=== PATIENT | female | born 1940 | race Caucasian/White ===

== ENCOUNTER 2018-03-25 16:27 | Observation (INO) | payer MEDICARE, SELFPAY ==
[2018-03-25] VITALS (11 sets, daily range): BP systolic 78–175; BP diastolic 52–90; PULSE 72–91; RESP 13–22; TEMP 36.6–36.8; O2SAT 96–100; BMI 22.6
--- NOTE | 2018-03-25 16:52 | ED_ITS ---
Addendum entered and electronically signed by Evelyne Carmona D.O. 03/25/18 23: 03: Upon discharge the patient got extremely lightheaded and felt as though she was going to pass out. Her repeat blood pressure showed a systolic in the 70s. She had another episode of large amount of diarrhea. She had at least 1 L of IV fluids and drank quite a few axis of water in the ED. However she still has orthostatic hypotension and is weak. She lives alone and is unsteady on her feet. It spoken with Dr. Sullivan who happily accepts patient. Original Note: HPI - Syncope <Debbie Becerra MD - Last Filed: 03/26/18 07:50> General Chief Complaint: Syncope Stated Complaint: doesnt feel good,passed out twice Time Seen by Provider: 03/25/18 16:35 Source: patient and family Mode of arrival: EMS Limitations: no limitations History of Present Illness HPI narrative: 78F hx parkinson's brought for evaluation of syncope x2. Daughter/investment associate states that patient blanked out for 30-60s before and after using toilet today. No falls. Daughter had video of syncopal episode which appears consistent with vasovagal episode. Patient reports that she was having abdominal cramping around the time of these events and had diarrhea when she was able to use the toilet. No fever, chills, vomiting, dysuria. Related Data Home Medications Medication Instructions Recorded Confirmed coenzyme Q10 [Co Q-10] 100 mg PO DAILY #0 07/24/16 03/25/18 [colon health] 1 cap PO QDAY #0 04/16/17 03/25/18 cholecalciferol (vitamin D3) 1 tab PO QDAY #0 04/16/17 03/25/18 [Vitamin D3] pyridoxine (vitamin B6) 250 mg PO QDAY #0 04/16/17 03/25/18 oxybutynin chloride [Ditropan XL] 5 mg PO QDAY #0 10/01/17 03/25/18 [CALCIUM] 600 mg PO QDAY #0 11/16/17 03/25/18 [LAXATIVE] 1 tab PO PRN PRN #0 11/16/17 03/25/18 carbidopa-levodopa 1 tab PO QAM AND QHS 03/25/18 03/25/18 Previous Rx's Medication Instructions Recorded ferrous gluconate 324 mg PO QDAY #30 12/04/16 carbidopa-levodopa 3 tab PO TID #270 tab 08/12/17 sumatriptan succinate 50 mg PO PRN PRN #6 tab 10/13/17 fluoxetine 10 mg PO QDAY #30 cap 12/03/17 omeprazole 40 mg OR QDAY #30 cap 12/10/17 levofloxacin [Levaquin] 750 mg PO Q24H 7 Days #7 tab 03/25/18 metronidazole [Flagyl] 500 mg PO TID #21 tab 03/25/18 Allergies Allergy/AdvReac Type Severity Reaction Status Date / Time No Known Drug Allergies Allergy Verified 03/25/18 17:27 Review of Systems <Debbie Becerra MD - Last Filed: 03/26/18 07:50> Constitutional Denies chills, Denies fever(s), Denies lethargy and Denies weakness ENT Ears, Nose, Mouth, and Throat: Denies change in voice, Denies neck pain and Denies sore throat Cardiovascular Denies chest pain, Reports syncope, Denies irregular heart rhythm, Denies lightheadedness, Denies palpitations, Denies dyspnea, Denies dyspnea on exertion and Denies orthopnea Respiratory Denies cough, Denies dyspnea, Denies dyspnea on exertion and Denies wheezing Gastrointestinal Gastrointestinal: Denies abdominal pain, Reports change in bowel habits, Reports cramping, Reports diarrhea, Denies nausea and Denies vomiting Genitourinary Denies hematuria, Denies flank pain, Denies urinary incontinence and Denies urinary urgency Musculoskeletal Denies neck pain Integumentary/Breasts Denies pruritus, Denies erythema, Denies rash and Denies wounds Neurologic Reports syncope and Denies weakness Endocrine Denies palpitations Allergic/Immunologic Denies wheezing Exam <Debbie Becerra MD - Last Filed: 03/26/18 07:50> Initial Vital Signs Initial Vital Signs: Vital Signs Temperature 98.3 F 03/25/18 16:49 Pulse Rate 87 03/25/18 16:49 Respiratory Rate 15 03/25/18 16:49 Blood Pressure 150/82 H 03/25/18 16:49 Pulse Oximetry 100 03/25/18 16:49 Const General: cooperative and well developed Nutritional Appearance: well nourished Orientation: alert, awake, oriented x3 and not confused [place] Head: normocephalic and atraumatic Ears: external ears normal and TM's normal bilaterally Nose: external nose normal and No nasal discharge Face and sinus: sinuses nontender, face symmetric, no sinus tenderness and No dry mucous membranes Mouth: oral mucosae normal and moist mucous membranes Teeth and gingiva: dentition normal Throat: tonsils normal and uvula midline Neck Neck: normal visual inspection, trachea midline, No lymphadenopathy, No midline deformity and No JVD Lymphatic: No lymphedema Resp Effort & Inspection: normal respiratory effort, able to speak in complete sentences, no respiratory distress and no use of accessory muscles Auscultation: clear to auscultation bilaterally, no rales, no rhonchi and no wheezes GI Inspection: non-distended Palpation: soft, no hepatosplenomegaly, No guarding, No pulsatile mass and tender (moderate generalized tenderness) Auscultation: normal bowel sounds Skin General: no rashes or lesions noted, No jaundice and No petechiae Neuro General: alert, awake, oriented x3, moves all extremities and other (baseline resting tremor) Extrem General: full ROM, no clubbing, cyanosis or edema, no pedal edema and no calf tenderness <Evelyne Carmona DO - Last Filed: 03/25/18 23:03> Initial Vital Signs Initial Vital Signs: Vital Signs Temperature 98.3 F 03/25/18 16:49 Pulse Rate 87 03/25/18 16:49 Respiratory Rate 15 03/25/18 16:49 Blood Pressure 150/82 H 03/25/18 16:49 Pulse Oximetry 100 03/25/18 16:49 Course <Debbie Becerra MD - Last Filed: 03/26/18 07:50> Orders Ordered: Sodium Chloride (Normal Saline 0.9%) 1,000 mls @ 125 mls/hr IV CONT ANNALISE Last Admin: 03/26/18 00:08 Dose: 125 mls/hr Discontinued Medications Carbidopa/Levodopa (Sinemet 25-100 Tab) 3 each PO NOW ONE Stop: 03/26/18 01:36 Last Admin: 03/26/18 01:57 Dose: 3 each Sodium Chloride (Normal Saline 0.9%) 1,000 mls @ 1,000 mls/hr IV BOLUS ONE Stop: 03/25/18 17:59 Last Infusion: 03/25/18 20:45 Dose: 0 mls/hr Admin: 03/25/18 17:48 Dose: 1,000 mls/hr Sodium Chloride (Normal Saline 0.9%) 1,000 mls @ 1,000 mls/hr IV BOLUS ONE Stop: 03/25/18 18:41 Last Admin: 03/25/18 20:58 Dose: Levofloxacin (Levaquin) 750 mg PO NOW ONE Stop: 03/25/18 20:32 Last Admin: 03/25/18 20:43 Dose: 750 mg Metronidazole (Metronidazole) 500 mg PO NOW ONE Stop: 03/25/18 20:32 Last Admin: 03/25/18 20:45 Dose: 500 mg Vital Signs - 8 hr 03/26/18 04:54 Temperature 97.8 F Pulse Rate 77 Respiratory Rate 17 Blood Pressure 130/74 H Pulse Oximetry 100 <Evelyne Carmona DO - Last Filed: 03/25/18 23:03> Orders Ordered: Sodium Chloride (Normal Saline 0.9%) 1,000 mls @ 125 mls/hr IV CONT ANNALISE Last Admin: 03/26/18 00:08 Dose: 125 mls/hr Discontinued Medications Carbidopa/Levodopa (Sinemet 25-100 Tab) 3 each PO NOW ONE Stop: 03/26/18 01:36 Last Admin: 03/26/18 01:57 Dose: 3 each Sodium Chloride (Normal Saline 0.9%) 1,000 mls @ 1,000 mls/hr IV BOLUS ONE Stop: 03/25/18 17:59 Last Infusion: 03/25/18 20:45 Dose: 0 mls/hr Admin: 03/25/18 17:48 Dose: 1,000 mls/hr Sodium Chloride (Normal Saline 0.9%) 1,000 mls @ 1,000 mls/hr IV BOLUS ONE Stop: 03/25/18 18:41 Last Admin: 03/25/18 20:58 Dose: Levofloxacin (Levaquin) 750 mg PO NOW ONE Stop: 03/25/18 20:32 Last Admin: 03/25/18 20:43 Dose: 750 mg Metronidazole (Metronidazole) 500 mg PO NOW ONE Stop: 03/25/18 20:32 Last Admin: 03/25/18 20:45 Dose: 500 mg Vital Signs - 8 hr 03/26/18 04:54 Temperature 97.8 F Pulse Rate 77 Respiratory Rate 17 Blood Pressure 130/74 H Pulse Oximetry 100 MDM - Syncope <Debbie Becerra MD - Last Filed: 03/26/18 07:50> Lab Data Result diagrams: 03/25/18 17:44 03/25/18 17:44 Lab Results 03/25/18 03/25/18 03/25/18 Range/Units 17:44 17:44 17:44 WBC 15.0 H (4.5-11.0) X10^3/uL RBC 4.65 (4.0-5.2) X10^6/uL Hgb 14.9 (12.0-16.0) g/dL Hct 42.3 (36-46) % MCV 91.0 (80-100) fL MCH 32.0 (26-34) PG MCHC 35.1 (30-36) % RDW 12.9 (11.6-14.8) % Plt Count 244 (150-400) X10^3/uL Neut % (Auto) 89.3 H (50-75) % Lymph % (Auto) 4.2 L (25-40) % Sawyer % (Auto) 5.6 (3-14) % Eos % (Auto) 0.5 L (2-4) % Baso % (Auto) 0.4 (0-2) % Neut # (Auto) 54669 H (6047-0811) /uL PT 11.6 (10.1-12.7) SECONDS INR 1.1 (0.9-1.3) APTT 27 (26.4-36.2) SECONDS Sodium 138 (137-145) mmol/L Potassium 4.5 (3.4-5.1) mmol/L Chloride 97.0 L (98-107) mmol/L Carbon Dioxide 29.0 (22-32) mmol/L BUN 19.0 H (7-17) mg/dL Creatinine 0.90 (0.52-1.04) mg/dL Estimated GFR > 60.0 (>60) mL/min BUN/Creatinine Ratio 21.1 (6-22) Glucose 120 H (80-110) mg/dL Lactate (0.7-2.1) mmol/L Calcium 10.5 H (8.4-10.2) mg/dL Magnesium 2.2 (1.6-2.3) mg/dL Total Bilirubin 1.3 (0.2-1.3) mg/dL AST 22 (14-36) IU/L ALT 14 (9-52) IU/L Alkaline Phosphatase 79 (38-126) U/L Total Protein 7.4 (6.3-8.2) g/dL Albumin 4.5 (3.5-5.0) g/dL Globulin 2.9 (1.7-4.1) g/dL Albumin/Globulin Ratio 1.6 (1.0-2.8) / Range/Units Unknown WBC (4.5-11.0) X10^3/uL RBC (4.0-5.2) X10^6/uL Hgb (12.0-16.0) g/dL Hct (36-46) % MCV (80-100) fL MCH (26-34) PG MCHC (30-36) % RDW (11.6-14.8) % Plt Count (150-400) X10^3/uL Neut % (Auto) (50-75) % Lymph % (Auto) (25-40) % Sawyer % (Auto) (3-14) % Eos % (Auto) (2-4) % Baso % (Auto) (0-2) % Neut # (Auto) (4074-9579) /uL PT (10.1-12.7) SECONDS INR (0.9-1.3) APTT (26.4-36.2) SECONDS Sodium (137-145) mmol/L Potassium (3.4-5.1) mmol/L Chloride (98-107) mmol/L Carbon Dioxide (22-32) mmol/L BUN (7-17) mg/dL Creatinine (0.52-1.04) mg/dL Estimated GFR (>60) mL/min BUN/Creatinine Ratio (6-22) Glucose (80-110) mg/dL Lactate 0.9 (0.7-2.1) mmol/L Calcium (8.4-10.2) mg/dL Magnesium (1.6-2.3) mg/dL Total Bilirubin (0.2-1.3) mg/dL AST (14-36) IU/L ALT (9-52) IU/L Alkaline Phosphatase (38-126) U/L Total Protein (6.3-8.2) g/dL Albumin (3.5-5.0) g/dL Globulin (1.7-4.1) g/dL Albumin/Globulin Ratio (1.0-2.8) ECG Data Attestation: I personally reviewed and interpreted this ECG as follows: Interpretation: Sinus rhythm HR [address]/Tw changes No ectopy MO intervals WNL; <Evelyne Carmona, DO - Last Filed: 03/25/18 23:03> Lab Data Attestation: I reviewed the patient's lab results. Lab Results 03/25/18 03/25/18 03/25/18 Range/Units 17:44 17:44 17:44 WBC 15.0 H (4.5-11.0) X10^3/uL RBC 4.65 (4.0-5.2) X10^6/uL Hgb 14.9 (12.0-16.0) g/dL Hct 42.3 (36-46) % MCV 91.0 (80-100) fL MCH 32.0 (26-34) PG MCHC 35.1 (30-36) % RDW 12.9 (11.6-14.8) % Plt Count 244 (150-400) X10^3/uL Neut % (Auto) 89.3 H (50-75) % Lymph % (Auto) 4.2 L (25-40) % Sawyer % (Auto) 5.6 (3-14) % Eos % (Auto) 0.5 L (2-4) % Baso % (Auto) 0.4 (0-2) % Neut # (Auto) 62863 H (9863-1575) /uL PT 11.6 (10.1-12.7) SECONDS INR 1.1 (0.9-1.3) APTT 27 (26.4-36.2) SECONDS Sodium 138 (137-145) mmol/L Potassium 4.5 (3.4-5.1) mmol/L Chloride 97.0 L (98-107) mmol/L Carbon Dioxide 29.0 (22-32) mmol/L BUN 19.0 H (7-17) mg/dL Creatinine 0.90 (0.52-1.04) mg/dL Estimated GFR > 60.0 (>60) mL/min BUN/Creatinine Ratio 21.1 (6-22) Glucose 120 H (80-110) mg/dL Lactate (0.7-2.1) mmol/L Calcium 10.5 H (8.4-10.2) mg/dL Magnesium 2.2 (1.6-2.3) mg/dL Total Bilirubin 1.3 (0.2-1.3) mg/dL AST 22 (14-36) IU/L ALT 14 (9-52) IU/L Alkaline Phosphatase 79 (38-126) U/L Total Protein 7.4 (6.3-8.2) g/dL Albumin 4.5 (3.5-5.0) g/dL Globulin 2.9 (1.7-4.1) g/dL Albumin/Globulin Ratio 1.6 (1.0-2.8) 05/24/18 Range/Units Unknown WBC (4.5-11.0) X10^3/uL RBC (4.0-5.2) X10^6/uL Hgb (12.0-16.0) g/dL Hct (36-46) % MCV (80-100) fL MCH (26-34) PG MCHC (30-36) % RDW (11.6-14.8) % Plt Count (150-400) X10^3/uL Neut % (Auto) (50-75) % Lymph % (Auto) (25-40) % Sawyer % (Auto) (3-14) % Eos % (Auto) (2-4) % Baso % (Auto) (0-2) % Neut # (Auto) (0136-1395) /uL PT (10.1-12.7) SECONDS INR (0.9-1.3) APTT (26.4-36.2) SECONDS Sodium (137-145) mmol/L Potassium (3.4-5.1) mmol/L Chloride (98-107) mmol/L Carbon Dioxide (22-32) mmol/L BUN (7-17) mg/dL Creatinine (0.52-1.04) mg/dL Estimated GFR (>60) mL/min BUN/Creatinine Ratio (6-22) Glucose (80-110) mg/dL Lactate 0.9 (0.7-2.1) mmol/L Calcium (8.4-10.2) mg/dL Magnesium (1.6-2.3) mg/dL Total Bilirubin (0.2-1.3) mg/dL AST (14-36) IU/L ALT (9-52) IU/L Alkaline Phosphatase (38-126) U/L Total Protein (6.3-8.2) g/dL Albumin (3.5-5.0) g/dL Globulin (1.7-4.1) g/dL Albumin/Globulin Ratio (1.0-2.8) Imaging Data Abdominal x-ray: Attestation: I personally reviewed and interpreted this imaging study as follows: Radiologist's impression: PROCEDURE: XR ACUTE ABDOMEN SERIES INDICATIONS: nausea TECHNIQUE: One view chest and two views of the abdomen were acquired. COMPARISON: [facility], US, ABDOMEN COMPLETE, 01/16/2017, 21:55. FINDINGS: Surgical changes and devices: Cholecystectomy clips. Chest: Lungs are clear. Heart size is normal. No pleural effusions. No pneumoperitoneum. Abdomen: Bowel gas pattern is normal. Moderate stool is present. No suspicious calcifications. Visualized solid organ contours appear normal. Bones: No suspicious bony lesions. IMPRESSION: Moderate stool suggesting constipation. CT scan - abdomen: Attestation: I personally reviewed and interpreted this imaging study as follows: Radiologist's impression: PROCEDURE: CT ABDOMEN PELVIS W CON INDICATIONS: generalized abd tenderness TECHNIQUE: After the administration of intravenous contrast, 5 mm thick sections acquired from the diaphragm to the symphysis. 5 mm coronal and sagittal reformats were acquired. For radiation dose reduction, the following was used: automated exposure control, adjustment of mA and/or kV according to patient size. COMPARISON: [facility], CR, XR ACUTE ABDOMEN SERIES, 03/25/2018, 16:40. [facility], CT, ABDOMEN/PELVIS WITH CONTRAST, 11/30/2016, 23:56. FINDINGS: Image quality: Excellent. ABDOMEN: Lung bases: Lung bases are clear. Heart size is normal. Solid organs: Liver is normal in size and enhancement. Anterior right hepatic cyst is unchanged. Gallbladder has been removed. Biliary system is non dilated. Pancreas enhances normally. Spleen is normal in size and enhancement. No adrenal nodules. Kidneys demonstrate normal size and enhancement, without hydronephrosis. Low attenuation right renal focus is present, unchanged and suggestive of cysts. Peritoneum and bowel: Bowel loops are nonobstructed. There is diffuse appearance of colonic thickening with minimal appearance of surrounding inflammatory change. This extends from the ascending colon to the rectum. Nodes and vessels: No retroperitoneal or mesenteric adenopathy by size criteria. Aorta and inferior vena cava are normal in size. Miscellaneous: No ventral hernias. PELVIS: Genitourinary: Bladder wall thickness is normal. Miscellaneous: No inguinal hernias or adenopathy. Bones: No suspicious bony lesions. No vertebral body compression fractures. IMPRESSION: 1. Diffuse appearance of colonic wall thickening with scattered areas of mild inflammatory change. Overall appearance is most suggestive of a diffuse infectious/inflammatory process such as colitis. While there are several small scattered diverticula present, the overall diffuse appearance is suggestive of colitis secondary to more generalized infection or potentially ischemic. Dictated by: Jaymie Devine M.D. on 03/25/2018 at 19:44 MDM Narrative Medical decision making narrative: Patient has some mild abdominal pain with leukocytosis and colitis on CT. Lactic acid is within normal limits pain is not out of proportion I do not suspect ischemic bowel. He had a brief episode while on the toilet of passing out. She admits she did not drink enough water. She is feeling much better, and feels as though she is ready to go home. Discharge Plan Departure Patient Disposition: Admitted as Observation Clinical Impression: Colitis, Syncope Discharge Date/Time: 03/25/18 22:30 Interventions: ED Discharge Assessment Last Done: 03/25/18 22:26 Admit Date/Time: 03/25/18 22:18 Admit Provider: Lulu Sullivan <Evelyne Carmona DO - Last Filed: 03/25/18 23:03> Sign Out Provider Sign Out Attestation: Patient seen and evaluated by myself. Mild lower abdominal pain CT is pending.
--- NOTE | 2018-03-25 17:00 | DI.RAD.S_ITS ---
PROCEDURE: XR ACUTE ABDOMEN SERIES INDICATIONS: nausea TECHNIQUE: One view chest and two views of the abdomen were acquired. COMPARISON: [facility], , ABDOMEN COMPLETE, 01/16/2017, 21:55. FINDINGS: Surgical changes and devices: Cholecystectomy clips. Chest: Lungs are clear. Heart size is normal. No pleural effusions. No pneumoperitoneum. Abdomen: Bowel gas pattern is normal. Moderate stool is present. No suspicious calcifications. Visualized solid organ contours appear normal. Bones: No suspicious bony lesions. IMPRESSION: Moderate stool suggesting constipation. Dictated by: Jaymie Devine M.D. on 03/25/2018 at 17:56 Approved by: Jaymie Devine M.D. on 03/25/2018 at 17:58
--- NOTE | 2018-03-25 17:43 | DI.CT.S_ITS ---
PROCEDURE: CT ABDOMEN PELVIS W CON INDICATIONS: generalized abd tenderness TECHNIQUE: After the administration of intravenous contrast, 5 mm thick sections acquired from the diaphragm to the symphysis. 5 mm coronal and sagittal reformats were acquired. For radiation dose reduction, the following was used: automated exposure control, adjustment of mA and/or kV according to patient size. COMPARISON: [facility], CR, XR ACUTE ABDOMEN SERIES, 03/25/2018, 16:40. [facility], CT, ABDOMEN/PELVIS WITH CONTRAST, 11/30/2016, 23:56. FINDINGS: Image quality: Excellent. ABDOMEN: Lung bases: Lung bases are clear. Heart size is normal. Solid organs: Liver is normal in size and enhancement. Anterior right hepatic cyst is unchanged. Gallbladder has been removed. Biliary system is non dilated. Pancreas enhances normally. Spleen is normal in size and enhancement. No adrenal nodules. Kidneys demonstrate normal size and enhancement, without hydronephrosis. Low attenuation right renal focus is present, unchanged and suggestive of cysts. Peritoneum and bowel: Bowel loops are nonobstructed. There is diffuse appearance of colonic thickening with minimal appearance of surrounding inflammatory change. This extends from the ascending colon to the rectum. Nodes and vessels: No retroperitoneal or mesenteric adenopathy by size criteria. Aorta and inferior vena cava are normal in size. Miscellaneous: No ventral hernias. PELVIS: Genitourinary: Bladder wall thickness is normal. Miscellaneous: No inguinal hernias or adenopathy. Bones: No suspicious bony lesions. No vertebral body compression fractures. IMPRESSION: 1. Diffuse appearance of colonic wall thickening with scattered areas of mild inflammatory change. Overall appearance is most suggestive of a diffuse infectious/inflammatory process such as colitis. While there are several small scattered diverticula present, the overall diffuse appearance is suggestive of colitis secondary to more generalized infection or potentially ischemic. Dictated by: Jaymie Devine M.D. on 03/25/2018 at 19:44 Approved by: Jaymie Devine M.D. on 03/25/2018 at 19:47
[2018-03-25] MEDS: SODIUM CHLORIDE 0.9% 1,000 ML 1000 ML IV (17:48)
[2018-03-25 17:58] LABS: Add Manual Diff / Slide Review NO; Basophils Percent Auto 0.4 % (0-2); Eosinophils Percent Auto 0.5 % (2-4); Hematocrit 42.3 % (36-46); Hemoglobin 14.9 g/dL (12.0-16.0); Lymphocytes Percent Auto 4.2 % (25-40); Mean Corpuscular HGB Conc 35.1 % (30-36); Monocytes Percent Auto 5.6 % (3-14); Neutrophils Absolute Auto 13400 /uL (3000-5900); Neutrophils Percent Auto 89.3 % (50-75); Platelet Count 244 X10^3/uL (150-400); Red Blood Cell Count 4.65 X10^6/uL (4.0-5.2); Red Cell Distribution Width 12.9 % (11.6-14.8)
--- NOTE | 2018-03-25 18:02 | PC.NURSE ---
Pt had 2 syncopal episodes at home while getting up from the toilet and had a near syncopal episode in the Radiology department while getting an x-ray. No injuries reported. Pt reports increased thirst and dry skin.
[2018-03-25 18:03] LABS: INR 1.1 (0.9-1.3); Prothrombin Time 11.6 SECONDS (10.1-12.7)
[2018-03-25 18:05] LABS: PTT Partial Thromboplastin Tim 27 SECONDS (26.4-36.2)
[2018-03-25 18:08] LABS: Alanine Aminotransferase 14 IU/L (9-52); Albumin 4.5 g/dL (3.5-5.0); Albumin Globulin Ratio 1.6 (1.0-2.8); Alkaline Phosphatase 79 U/L (38-126); Aspartate Aminotransferase 22 IU/L (14-36); BUN Creatinine Ratio 21.1 (6-22); Bilirubin Total 1.3 mg/dL (0.2-1.3); Calcium 10.5 mg/dL (8.4-10.2); Estimated Glomerular Filt Rate > 60.0 mL/min (>60); Globulin 2.9 g/dL (1.7-4.1); Glucose 120 mg/dL (80-110); HEMOLYSIS < 15 (0-50); Magnesium 2.2 mg/dL (1.6-2.3); Potassium 4.5 mmol/L (3.4-5.1); Sodium 138 mmol/L (137-145); Total Protein 7.4 g/dL (6.3-8.2)
[2018-03-25 19:38] LABS: Lactate (Lactic Acid) 0.9 mmol/L (0.7-2.1)
[2018-03-25] MEDS: levoFLOXacin 250 MG TABLET 750 MG PO (20:43)
[2018-03-25] MEDS: metroNIDAZOLE 250 MG TABLET 500 MG PO (20:45)
--- NOTE | 2018-03-25 21:32 | PC.NURSE ---
Pt was up for discharge. Removed IV and after about 2 min of her getting dressed, EMBLEM MAKER in to take vitals. She was sitting and had a systolic blood pressure of 89. One minute later at a seated position, she was systolic of 99. After standing her up, she had a systolic blood pressure in the 70s and began to feel weak. Dr. Carmona notified and patient back on stretcher.
[2018-03-26] MEDS: SODIUM CHLORIDE 0.9% 1,000 ML 125 ML IV ×2 (00:08→08:13)
[2018-03-26] MEDS: CARBIDOPA-LEVODOPA 25/100 TABLET 3 EACH PO ×2 (01:57→10:09)
[2018-03-26 04:54] VITALS: BP 130/74; PULSE 77; RESP 17; TEMP 36.6; O2SAT 100
[2018-03-26] MEDS: PYRIDOXINE (VITAMIN B6) 50 MG TABLET 250 MG PO (10:08)
[2018-03-26] MEDS: FERROUS GLUCONATE 324 MG TABLET PO (10:09)
[2018-03-26] MEDS: FLUoxetine 10 MG CAPSULE PO (10:09)
[2018-03-26] MEDS: PANTOPRAZOLE 40 MG TABLET PO (10:09)
[2018-03-26] MEDS: OXYBUTYNIN 5 MG ER TAB PO (10:09)
[2018-03-26] MEDS: CARBIDOPA-LEVODOPA ER 50/200 TABLET 1 EACH PO (10:13)
--- NOTE | 2018-03-26 10:24 | PM.HP.1 ---
History of Present Illness Chief complaint: doesnt feel good,passed out twice Narrative: Rosalie Olson is a 78 year old female, patient of Purvi Bashir in [place] who was admitted from [facility] Emergency room last night for lightheadedness and dizzy upon standing. She has Parkinson's disease. She said she really did not drink enough water yesterday. She also had several loose stools. Her daughter found her ???passed out??? several times and brought her to the emergency room. She was noted to be orthostatic. She received IV hydration and was admitted to the medicine floor for observation. This morning she was able to ambulate with walker under nursing supervision without difficulty. She did not have lightheadedness or dizziness. 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 She lives by herself. Tobacco & Substance Use Smoking Status: Never smoker Alcohol intake: never Additional Social History Additional social history: Her daughter a year ago of coronary artery disease with complication of MRSA infection after bypass surgery. Meds Home Medications Medication Instructions Recorded Confirmed Type coenzyme Q10 [Co Q-10] 100 mg PO DAILY #0 07/24/16 03/25/18 History ferrous gluconate 324 mg PO QDAY #30 12/04/16 03/25/18 Rx [colon health] 1 cap PO QDAY #0 04/16/17 03/25/18 History cholecalciferol (vitamin D3) 1 tab PO QDAY #0 04/16/17 03/25/18 History [Vitamin D3] pyridoxine (vitamin B6) 250 mg PO QDAY #0 04/16/17 03/25/18 History carbidopa-levodopa 3 tab PO TID #270 tab 08/12/17 03/25/18 Rx oxybutynin chloride [Ditropan XL] 5 mg PO QDAY #0 10/01/17 03/25/18 History sumatriptan succinate 50 mg PO PRN PRN #6 tab 10/13/17 03/25/18 Rx [CALCIUM] 600 mg PO QDAY #0 11/16/17 03/25/18 History [LAXATIVE] 1 tab PO PRN PRN #0 11/16/17 03/25/18 History fluoxetine 10 mg PO QDAY #30 cap 12/03/17 03/25/18 Rx omeprazole 40 mg OR QDAY #30 cap 12/10/17 03/25/18 Rx carbidopa-levodopa 1 tab PO QAM AND QHS 03/25/18 03/25/18 History levofloxacin [Levaquin] 750 mg PO Q24H 7 Days #7 tab 03/25/18 Rx metronidazole [Flagyl] 500 mg PO TID #21 tab 03/25/18 Rx Allergies Allergy/AdvReac Type Severity Reaction Status Date / Time No Known Drug Allergies Allergy Verified 03/25/18 17:27 Review of Systems Constitutional Comments: No fever chills or sweats Cardiovascular Comments: No chest pain or shortness of breath Respiratory Comments: Denies coughing or wheezing Gastrointestinal Comments: Denies abdominal pain. Genitourinary Comments: No dysuria Musculoskeletal Comments: Chronic low back pain Neurologic Comments: Tremors Exam Vital Signs (past 8 hours): Vital Signs - 8 hr 03/26/18 04:54 Temperature 97.8 F Pulse Rate 77 Respiratory Rate 17 Blood Pressure 130/74 H Pulse Oximetry 100 Pulse Oximetry 100 Oxygen Delivery Method Room Air Oxygen Flow Rate 0 Narrative Exam Narrative: GENERAL: Well-appearing, well-nourished and in no acute distress. HEENT: Head normocephalic, atraumatic. Eyes pupils equal round; dry mucous membrane NECK: Supple, no JVD, CHEST: Breath sounds equal bilaterally, no wheezes rales or rhonchi. CARDIAC: Regular rate and rhythm without murmurs, rubs or gallops. ABDOMEN: Soft, nontender. Normoactive bowel sounds all 4 quadrants. No guarding or rebound. EXTREMITIES: Normal range of motion, mild clubbing of fingers. NEUROLOGICAL: Alert and oriented; Normal muscle strength. SKIN: Warm, dry, no petechiae, no rashes or lesions. Objective Labs Result Diagrams: 03/25/18 17:44 03/25/18 17:44 Labs: Laboratory Results - last 24 hr 03/25/18 03/25/18 03/25/18 17:44 17:44 17:44 WBC 15.0 H RBC 4.65 Hgb 14.9 Hct 42.3 MCV 91.0 MCH 32.0 MCHC 35.1 RDW 12.9 Plt Count 244 Neut % (Auto) 89.3 H Lymph % (Auto) 4.2 L [place] % (Auto) 5.6 Eos % (Auto) 0.5 L Baso % (Auto) 0.4 Neut # (Auto) 21077 H PT 11.6 INR 1.1 APTT 27 Sodium 138 Potassium 4.5 Chloride 97.0 L Carbon Dioxide 29.0 BUN 19.0 H Creatinine 0.90 Estimated GFR > 60.0 BUN/Creatinine Ratio 21.1 Glucose 120 H Lactate Calcium 10.5 H Magnesium 2.2 Total Bilirubin 1.3 AST 22 ALT 14 Alkaline Phosphatase 79 Total Protein 7.4 Albumin 4.5 Globulin 2.9 Albumin/Globulin Ratio 1.6 03/25/18 Unknown WBC RBC Hgb Hct MCV MCH MCHC RDW Plt Count Neut % (Auto) Lymph % (Auto) [place] % (Auto) Eos % (Auto) Baso % (Auto) Neut # (Auto) PT INR APTT Sodium Potassium Chloride Carbon Dioxide BUN Creatinine Estimated GFR BUN/Creatinine Ratio Glucose Lactate 0.9 Calcium Magnesium Total Bilirubin AST ALT Alkaline Phosphatase Total Protein Albumin Globulin Albumin/Globulin Ratio Assessment & Plan Plan: Plan: 1. Syncope: Likely secondary to postural hypotension. Her symptom has resolved 2. Dehydration: She received IV hydration overnight. Encouraged oral hydration 3. Diarrhea: Likely viral gastroenteritis. Her diarrhea has resolved. 4. Parkinson's disease: Continue outpatient medications 5. Disposition: Patient will be discharged home today. This documentation will also serve as discharge summary. Quality VTE Deep Vein Thrombosis/Pulmonary Embolism Present on Admission: No
[2018-03-26 10:35] VITALS: BP 150/95; PULSE 94
[2018-03-26 10:36] VITALS: BP 132/74; PULSE 94
--- NOTE | 2018-03-26 13:32 | PC.NURSE ---
Patient daughter present as discharge teaching reviewed. IV catheter removed. Tip intact. Patient denies symptoms of dizziness. BP stable. Reports wanting to return home. Fall prevention instruction provided along with other teaching. Telemetry DCd.
--- NOTE | 2018-03-26 14:32 | CM.DANOTE ---
DCP Assessment/ DC Note: Pt is an 78 yo female, resident of [place]. Pt under obs, presented to the ER after passing out at home multiple times. Pt's PCP is Merissa Bashir; Insurance is Medicare/[employer]. Pt DC home before this [employer] able to meet w/her and her dtr. Pt w/Parkinsons, lives at home w/dtr Yasmin as primary cg P# [phone]. Pt stable medically and functionally today to return home, per review of chart, no barriers identified to safe DC home, no concerns from RN or MD indicated. Bernarda Huston MSW
== END 2018-03-26 13:50 | disposition home or self-care (01) ==
LOC: ED 21:36 → AC 22:19
PROVIDERS: Student in an Organized Health Care Education/Training Program; Admitting Provider Internal Medicine; Emergency Provider Emergency Medicine; Family Provider Physician Assistant; PCP Physician Assistant; Visit Provider Internal Medicine
DX: R42 Dizziness and giddiness (principal); G20 Parkinson's disease; E86.0 Dehydration; M85.80 Other specified disorders of bone density and structure, unspecified site; M54.5 Low back pain; G89.4 Chronic pain syndrome; E78.5 Hyperlipidemia, unspecified; G25.81 Restless legs syndrome; K21.9 Gastro-esophageal reflux disease without esophagitis; F32.9 Major depressive disorder, single episode, unspecified; R55 Syncope and collapse; R19.7 Diarrhea, unspecified
CPT/HCPCS: 36591; 74022; 74177; 80053; 83605; 83735; 85025; 85610; 85730; 93005; 93041; 96360; 99285; G0378; Q9967

== ENCOUNTER 2018-03-28 12:28 | Observation (INO) | payer MEDICARE, SELFPAY ==
[2018-03-25 22:43] VITALS: BMI 22.6
[2018-03-28] VITALS (11 sets, daily range): BP systolic 68–179; BP diastolic 45–101; PULSE 80–111; RESP 13–22; TEMP 36.2–37; O2SAT 96–100; BMI 24.7; BMI 20.8
--- NOTE | 2018-03-28 13:03 | DI.RAD.S_ITS ---
PROCEDURE: XR CHEST 1V INDICATIONS: cough TECHNIQUE: One view of the chest was acquired. COMPARISON: [facility], CHEST 1 VIEW, 09/20/2016, 18:04. [facility], CHEST 1 VIEW, 08/26/2016, 19:35. [facility], CHEST 2 VIEW, 01/23/2011, 14:53. FINDINGS: Surgical changes and devices: None. Lungs and pleura: No pleural effusions or pneumothorax. Lungs are clear. Mediastinum: Mediastinal contours appear normal. Heart size is normal. Bones and chest wall: No suspicious bony lesions. Overlying soft tissues appear unremarkable. IMPRESSION: Normal for age, source of current symptoms is not seen. Dictated by: Vijay Kohler M.D. on 03/28/2018 at 13:33 Approved by: Vijay Kohler M.D. on 03/28/2018 at 13:33
--- NOTE | 2018-03-28 13:05 | ED.WEAKNESS ---
HPI - Weakness General Chief complaint: Weakness Stated complaint: WEAK Time Seen by Provider: 03/28/18 12:40 Source: patient, family and old records reviewed Mode of arrival: ambulatory Limitations: no limitations History of Present Illness HPI Narrative: Patient is an 78-year-old female who presents with a pre this. She was admitted 03/25/2018 and discharged 03/26/2018 at the time she was diagnosed with colitis and postural hypotension. She said she was doing okay yesterday however today she feels increasing abdominal pain and overall weakness. Noted to be tachycardic on arrival. She says she has been taking her antibiotics. She has not had any further diarrhea since she started them. In fact her last bowel movement was at least 4 days ago. She feels slightly nauseated no vomiting no fevers. MD Complaint: generalized weakness Related Data Home Medications Medication Instructions Recorded Confirmed coenzyme Q10 [Co Q-10] 100 mg PO DAILY #0 07/24/16 03/28/18 cholecalciferol (vitamin D3) 1 tab PO QDAY #0 04/16/17 03/28/18 [Vitamin D3] pyridoxine (vitamin B6) 250 mg PO QDAY #0 04/16/17 03/28/18 oxybutynin chloride [Ditropan XL] 5 mg PO QDAY #0 10/01/17 03/28/18 carbidopa-levodopa 1 tab PO QAM AND QHS 03/25/18 03/28/18 acetaminophen-codeine 1 tab PO Q6H PRN 03/28/18 03/28/18 [Tylenol-Codeine #3] calcium carbonate-vitamin D3 1 tab PO QAM 03/28/18 03/28/18 [Calcium 600 + D(3)] docusate sodium [Colace] 100 mg PO DAILY 03/28/18 03/28/18 lactobacillus combination no.4 3,000 mmu cells PO DAILY 03/28/18 03/28/18 [Probiotic] magnesium 100 mg PO DAILY PRN 03/28/18 03/28/18 Previous Rx's Medication Instructions Recorded ferrous gluconate 324 mg PO QDAY #30 12/04/16 carbidopa-levodopa 3 tab PO TID #270 tab 08/12/17 sumatriptan succinate 50 mg PO PRN PRN #6 tab 10/13/17 omeprazole 40 mg OR QDAY #30 cap 12/10/17 levofloxacin [Levaquin] 750 mg PO Q24H 7 Days #7 tab 03/25/18 metronidazole [Flagyl] 500 mg PO TID #21 tab 03/25/18 Allergies Allergy/AdvReac Type Severity Reaction Status Date / Time No Known Drug Allergies Allergy Verified 03/25/18 17:27 Review of Systems Review of Systems All systems reviewed & are unremarkable except as noted in HPI and below Constitutional Denies chills, Denies fever(s), Denies frequent falls, Reports lethargy and Reports weakness ENT Ears, Nose, Mouth, and Throat: Denies change in voice, Denies neck pain and Denies sore throat Cardiovascular Denies chest pain, Denies irregular heart rhythm, Denies lightheadedness, Denies palpitations, Denies dyspnea, Denies dyspnea on exertion and Denies orthopnea Respiratory Denies cough, Denies dyspnea, Denies dyspnea on exertion and Denies wheezing Gastrointestinal Gastrointestinal: Reports as per HPI and Reports system reviewed and no additional complaints, except as docu Genitourinary Denies hematuria, Denies flank pain, Denies urinary incontinence and Denies urinary urgency Musculoskeletal Denies neck pain and Denies numbness Integumentary/Breasts Denies pruritus, Denies erythema, Denies rash and Denies wounds Neurologic Denies confusion, Denies frequent falls, Denies numbness and Reports weakness Psychiatric Denies confusion Endocrine Denies palpitations Allergic/Immunologic Denies wheezing PFSH Family History: Reviewed 03/28/18 by Lulu Sullivan MD Social History household members: none lives independently: Yes other: She is . She lives by herself. Smoking Status: Never smoker alcohol intake: never additional social history: Her daughter a year ago of coronary artery disease with complication of MRSA infection after bypass surgery. Exam Initial Vital Signs Initial Vital Signs: Vital Signs Temperature 97.8 F 03/28/18 12:38 Pulse Rate 111 H 03/28/18 12:38 Respiratory Rate 22 03/28/18 12:38 Blood Pressure 135/85 H 03/28/18 12:38 Pulse Oximetry 99 03/28/18 12:38 Const General: frail appearing and ill appearing Nutritional Appearance: thin Orientation: alert, awake and oriented x3 Chest Chest: normal inspection of the chest Resp Effort & Inspection: normal respiratory effort, able to speak in complete sentences, no respiratory distress and no use of accessory muscles Auscultation: clear to auscultation bilaterally, no rales, no rhonchi and no wheezes Cardio Rate: regular rate Rhythm: regular rhythm Heart Sounds: no click, no gallops, no murmurs and no rubs Pulses: normal peripheral pulses GI Inspection: normal to inspection Palpation: soft and tender (Lower suprapubic tenderness no guarding no rebound) Skin General: no rashes or lesions noted, No jaundice and No petechiae Extrem General: full ROM, no clubbing, cyanosis or edema, no pedal edema and no calf tenderness Course Orders Ordered: ED Orders 03/28/18 13:03 XR chest 1V Stat 03/28/18 13:04 CT abdomen pelvis w con Stat 03/28/18 13:50 Complete Blood Count AUTO DIFF Stat Lactate (Lactic Acid) Stat Procalcitonin Stat 03/28/18 14:05 Blood Culture Stat Comprehensive Metabolic Panel Stat Sodium Chloride (Normal Saline 0.9%) 1,000 mls @ 1,000 mls/hr IV CONT ANNALISE Last Infusion: 03/28/18 14:39 Dose: 0 mls/hr Admin: 03/28/18 13:18 Dose: 1,000 mls/hr Sodium Chloride (Normal Saline 0.9%) 1,000 mls @ 125 mls/hr IV CONT ANNALISE Discontinued Medications Sodium Chloride (Normal Saline 0.9%) 1,000 mls @ 1,000 mls/hr IV BOLUS ONE Stop: 03/28/18 16:06 Last Infusion: 03/28/18 16:10 Dose: 1,000 mls/hr Admin: 03/28/18 15:18 Dose: 1,000 mls/hr Ondansetron HCl (Zofran) 4 mg IV NOW ONE Stop: 03/28/18 13:06 Last Admin: 03/28/18 13:18 Dose: 4 mg Vital Signs - 8 hr 03/28/18 12:38 03/28/18 12:40 03/28/18 13:15 Temperature 97.8 F Pulse Rate 111 H 110 H 103 H Pulse Rate [Orthostatic Lying] Pulse Rate [Orthostatic Sitting] Pulse Rate [Orthostatic Standing] Respiratory Rate 22 22 22 Blood Pressure 135/85 H Blood Pressure [Orthostatic Lying] Blood Pressure [Orthostatic Sitting] Blood Pressure [Orthostatic Standing] Blood Pressure [Right Arm] 118/80 123/80 H Pulse Oximetry 99 96 99 03/28/18 14:10 03/28/18 15:11 03/28/18 15:14 Temperature Pulse Rate 89 95 H Pulse Rate [Orthostatic Lying] 92 H Pulse Rate [Orthostatic Sitting] 95 H Pulse Rate [Orthostatic Standing] 100 H Respiratory Rate 13 18 Blood Pressure Blood Pressure [Orthostatic Lying] 153/101 H Blood Pressure [Orthostatic Sitting] 127/75 H Blood Pressure [Orthostatic Standing] 68/50 L Blood Pressure [Right Arm] 159/94 H 158/86 H Pulse Oximetry 98 99 03/28/18 16:05 03/28/18 16:18 Temperature 97.1 F L 97.7 F Pulse Rate 88 84 Pulse Rate [Orthostatic Lying] Pulse Rate [Orthostatic Sitting] Pulse Rate [Orthostatic Standing] Respiratory Rate 16 16 Blood Pressure 148/72 H 159/89 H Blood Pressure [Orthostatic Lying] Blood Pressure [Orthostatic Sitting] Blood Pressure [Orthostatic Standing] Blood Pressure [Right Arm] Pulse Oximetry 98 100 MDM - Weakness Differential Diagnosis Differential diagnosis: Likely acute myocardial infarction Medical Records Attestation: I reviewed the patient's medical records. Lab Data Result diagrams: 03/28/18 13:50 03/28/18 14:05 Lab Results 03/28/18 03/28/18 03/28/18 Range/Units 13:50 13:50 13:50 WBC 8.5 (4.5-11.0) X10^3/uL RBC 3.94 L (4.0-5.2) X10^6/uL Hgb 12.6 (12.0-16.0) g/dL Hct 35.3 L (36-46) % MCV 89.6 (80-100) fL MCH 32.1 (26-34) PG MCHC 35.8 (30-36) % RDW 12.8 (11.6-14.8) % Plt Count 170 (150-400) X10^3/uL Neut % (Auto) 84.4 H (50-75) % Lymph % (Auto) 9.8 L (25-40) % [place] % (Auto) 5.6 (3-14) % Eos % (Auto) 0.1 L (2-4) % Baso % (Auto) 0.1 (0-2) % Neut # (Auto) 7100 H (2306-5104) /uL Sodium (137-145) mmol/L Potassium (3.4-5.1) mmol/L Chloride (98-107) mmol/L Carbon Dioxide (22-32) mmol/L BUN (7-17) mg/dL Creatinine (0.52-1.04) mg/dL Estimated GFR (>60) mL/min BUN/Creatinine Ratio (6-22) Glucose (80-110) mg/dL Lactate 0.9 (0.7-2.1) mmol/L Calcium (8.4-10.2) mg/dL Total Bilirubin (0.2-1.3) mg/dL AST (14-36) IU/L ALT (9-52) IU/L Alkaline Phosphatase (38-126) U/L Total Protein (6.3-8.2) g/dL Albumin (3.5-5.0) g/dL Globulin (1.7-4.1) g/dL Albumin/Globulin Ratio (1.0-2.8) Procalcitonin < 0.05 (<0.5) ng/mL //18 Range/Units 14:05 WBC (4.5-11.0) X10^3/uL RBC (4.0-5.2) X10^6/uL Hgb (12.0-16.0) g/dL Hct (36-46) % MCV (80-100) fL MCH (26-34) PG MCHC (30-36) % RDW (11.6-14.8) % Plt Count (150-400) X10^3/uL Neut % (Auto) (50-75) % Lymph % (Auto) (25-40) % [place] % (Auto) (3-14) % Eos % (Auto) (2-4) % Baso % (Auto) (0-2) % Neut # (Auto) (4534-5023) /uL Sodium 133 L (137-145) mmol/L Potassium 3.6 (3.4-5.1) mmol/L Chloride 95.0 L (98-107) mmol/L Carbon Dioxide 23.0 (22-32) mmol/L BUN 17.0 (7-17) mg/dL Creatinine 0.80 (0.52-1.04) mg/dL Estimated GFR > 60.0 (>60) mL/min BUN/Creatinine Ratio 21.3 (6-22) Glucose 75 L (80-110) mg/dL Lactate (0.7-2.1) mmol/L Calcium 9.3 (8.4-10.2) mg/dL Total Bilirubin 1.0 (0.2-1.3) mg/dL AST 19 (14-36) IU/L ALT 19 (9-52) IU/L Alkaline Phosphatase 57 (38-126) U/L Total Protein 6.3 (6.3-8.2) g/dL Albumin 3.8 (3.5-5.0) g/dL Globulin 2.5 (1.7-4.1) g/dL Albumin/Globulin Ratio 1.5 (1.0-2.8) Procalcitonin (<0.5) ng/mL Imaging Data Chest x-ray: Attestation: I personally reviewed and interpreted this imaging study as follows: Radiologist's impression: PROCEDURE: XR CHEST 1V INDICATIONS: cough TECHNIQUE: One view of the chest was acquired. COMPARISON: [facility], CHEST 1 VIEW, 09/20/2016, 18:04. [facility], CHEST 1 VIEW, 08/26/2016, 19:35. [facility], CHEST 2 VIEW, 01/23/2011, 14:53. FINDINGS: Surgical changes and devices: None. Lungs and pleura: No pleural effusions or pneumothorax. Lungs are clear. Mediastinum: Mediastinal contours appear normal. Heart size is normal. Bones and chest wall: No suspicious bony lesions. Overlying soft tissues appear unremarkable. IMPRESSION: Normal for age, source of current symptoms is not seen. Dictated by: Vijay Kohler M.D. on 03/28/2018 at 13:33 CT scan - abdomen: Attestation: I personally reviewed and interpreted this imaging study as follows: Radiologist's impression: View Report History Print [address] [address] [address] Scan Report Signed Patient: Rosalie Olson MR#: [id number] : 1940 Acct:[id number] Age/Sex: 78 / F Date of Service: 03/28/18 Loc: ED Accession Number: [id number] Procedure: CT abdomen pelvis w con Ordering Provider: Evelyne Carmona D.O. PROCEDURE: CT ABDOMEN PELVIS W CON INDICATIONS: worsening ab pain and weakness, recent colitis TECHNIQUE: After the administration of intravenous contrast, 5 mm thick sections acquired from the diaphragm to the symphysis. 5 mm coronal and sagittal reformats were acquired. For radiation dose reduction, the following was used: automated exposure control, adjustment of mA and/or kV according to patient size. COMPARISON: [facility], CT, CT ABDOMEN PELVIS W CON, 03/25/2018, 18:27. [facility], CT, ABDOMEN/PELVIS WITH CONTRAST, 11/30/2016, 23:56. [facility], CT, ABDOMEN/PELVIS WITH CONTRAST, 06/21/2015, 18:06. FINDINGS: Image quality: Excellent. ABDOMEN: Lung bases: Lung bases are clear. Heart size is normal. Small stable appearing pre-pericardial cyst abutting the right pericardium anteriorly Solid organs: Liver is normal in size and enhancement. Gallbladder has been previously resected. Biliary system is non dilated. Pancreas enhances normally. Spleen is normal in size and enhancement. No adrenal nodules. Kidneys demonstrate normal size and enhancement, without hydronephrosis. Peritoneum and bowel: Bowel loops demonstrate normal wall thickness and caliber. No free fluid or air. Nodes and vessels: No retroperitoneal or mesenteric adenopathy by size criteria. Aorta and inferior vena cava are normal in size. Miscellaneous: No ventral hernias. PELVIS: Genitourinary: Bladder wall thickness is normal. Miscellaneous: No inguinal hernias or adenopathy. Bones: No suspicious bony lesions. No vertebral body compression fractures. IMPRESSION: Small pre-pericardial cyst stable over time abutting the right anterior pericardial margin. This is an incidental finding. Within the abdomen a small amount of oral contrast remains within the colon from prior CT scanning. No sign of colitis or diverticulitis, no abscess is found. Source of current new pain is not identified. Dictated by: Vijay Kohler M.D. on 03/28/2018 at 14:18 ECG Data Attestation: I personally reviewed and interpreted this ECG as follows: Prior ECG tracings: available for review Interpretation: Sinus tachycardia rate 102 similar to previous No ST changes MDM Narrative Medical decision making narrative: Patient's blood work x-ray hand repeat CT in the within normal limits. Upon standing patient's blood pressure again drops to a systolic of 60 she is very unsteady on her feet. She likely has the orthostatic hypotension related to Parkinson's and not think it to be infectious at this time. She lives alone and is not able to are safely be discharged. She was seen initially after syncopal episode with similar symptoms. She did not have a syncopal episode this time however she is at risk for falls. Dr. Sullivan has been made aware of patient's test results and symptoms. She agrees to observation this time. Recommend more permanent placement. 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
--- NOTE | 2018-03-28 13:09 | ED_ITS ---
HPI - Weakness General Chief complaint: Weakness Stated complaint: WEAK Time Seen by Provider: 03/28/18 12:40 Source: patient, family and old records reviewed Mode of arrival: ambulatory Limitations: no limitations History of Present Illness HPI Narrative: Patient is an 78-year-old female who presents with a pre this. She was admitted 03/25/2018 and discharged 03/26/2018 at the time she was diagnosed with colitis and postural hypotension. She said she was doing okay yesterday however today she feels increasing abdominal pain and overall weakness. Noted to be tachycardic on arrival. She says she has been taking her antibiotics. She has not had any further diarrhea since she started them. In fact her last bowel movement was at least 4 days ago. She feels slightly nauseated no vomiting no fevers. MD Complaint: generalized weakness Related Data Home Medications Medication Instructions Recorded Confirmed coenzyme Q10 [Co Q-10] 100 mg PO DAILY #0 07/24/16 03/28/18 cholecalciferol (vitamin D3) 1 tab PO QDAY #0 04/16/17 03/28/18 [Vitamin D3] pyridoxine (vitamin B6) 250 mg PO QDAY #0 04/16/17 03/28/18 oxybutynin chloride [Ditropan XL] 5 mg PO QDAY #0 10/01/17 03/28/18 carbidopa-levodopa 1 tab PO QAM AND QHS 03/25/18 03/28/18 acetaminophen-codeine 1 tab PO Q6H PRN 03/28/18 03/28/18 [Tylenol-Codeine #3] calcium carbonate-vitamin D3 1 tab PO QAM 03/28/18 03/28/18 [Calcium 600 + D(3)] docusate sodium [Colace] 100 mg PO DAILY 03/28/18 03/28/18 lactobacillus combination no.4 3,000 mmu cells PO DAILY 03/28/18 03/28/18 [Probiotic] magnesium 100 mg PO DAILY PRN 03/28/18 03/28/18 Previous Rx's Medication Instructions Recorded ferrous gluconate 324 mg PO QDAY #30 12/04/16 carbidopa-levodopa 3 tab PO TID #270 tab 08/12/17 sumatriptan succinate 50 mg PO PRN PRN #6 tab 10/13/17 omeprazole 40 mg OR QDAY #30 cap 12/10/17 levofloxacin [Levaquin] 750 mg PO Q24H 7 Days #7 tab 03/25/18 metronidazole [Flagyl] 500 mg PO TID #21 tab 03/25/18 Allergies Allergy/AdvReac Type Severity Reaction Status Date / Time No Known Drug Allergies Allergy Verified 03/25/18 17:27 Review of Systems Review of Systems All systems reviewed & are unremarkable except as noted in HPI and below Constitutional Denies chills, Denies fever(s), Denies frequent falls, Reports lethargy and Reports weakness ENT Ears, Nose, Mouth, and Throat: Denies change in voice, Denies neck pain and Denies sore throat Cardiovascular Denies chest pain, Denies irregular heart rhythm, Denies lightheadedness, Denies palpitations, Denies dyspnea, Denies dyspnea on exertion and Denies orthopnea Respiratory Denies cough, Denies dyspnea, Denies dyspnea on exertion and Denies wheezing Gastrointestinal Gastrointestinal: Reports as per HPI and Reports system reviewed and no additional complaints, except as docu Genitourinary Denies hematuria, Denies flank pain, Denies urinary incontinence and Denies urinary urgency Musculoskeletal Denies neck pain and Denies numbness Integumentary/Breasts Denies pruritus, Denies erythema, Denies rash and Denies wounds Neurologic Denies confusion, Denies frequent falls, Denies numbness and Reports weakness Psychiatric Denies confusion Endocrine Denies palpitations Allergic/Immunologic Denies wheezing PFSH Family History: Reviewed 03/28/18 by Luul Sullivan MD Social History household members: none lives independently: Yes other: She is . She lives by herself. Smoking Status: Never smoker alcohol intake: never additional social history: Her daughter a year ago of coronary artery disease with complication of MRSA infection after bypass surgery. Exam Initial Vital Signs Initial Vital Signs: Vital Signs Temperature 97.8 F 03/28/18 12:38 Pulse Rate 111 H 03/28/18 12:38 Respiratory Rate 22 03/28/18 12:38 Blood Pressure 135/85 H 03/28/18 12:38 Pulse Oximetry 99 03/28/18 12:38 Const General: frail appearing and ill appearing Nutritional Appearance: thin Orientation: alert, awake and oriented x3 Chest Chest: normal inspection of the chest Resp Effort & Inspection: normal respiratory effort, able to speak in complete sentences, no respiratory distress and no use of accessory muscles Auscultation: clear to auscultation bilaterally, no rales, no rhonchi and no wheezes Cardio Rate: regular rate Rhythm: regular rhythm Heart Sounds: no click, no gallops, no murmurs and no rubs Pulses: normal peripheral pulses GI Inspection: normal to inspection Palpation: soft and tender (Lower suprapubic tenderness no guarding no rebound) Skin General: no rashes or lesions noted, No jaundice and No petechiae Extrem General: full ROM, no clubbing, cyanosis or edema, no pedal edema and no calf tenderness Course Orders Ordered: ED Orders 03/28/18 13:03 XR chest 1V Stat 03/28/18 13:04 CT abdomen pelvis w con Stat 03/28/18 13:50 Complete Blood Count AUTO DIFF Stat Lactate (Lactic Acid) Stat Procalcitonin Stat 03/28/18 14:05 Blood Culture Stat Comprehensive Metabolic Panel Stat Sodium Chloride (Normal Saline 0.9%) 1,000 mls @ 1,000 mls/hr IV CONT ANNALISE Last Infusion: 03/28/18 14:39 Dose: 0 mls/hr Admin: 03/28/18 13:18 Dose: 1,000 mls/hr Sodium Chloride (Normal Saline 0.9%) 1,000 mls @ 125 mls/hr IV CONT ANNALISE Discontinued Medications Sodium Chloride (Normal Saline 0.9%) 1,000 mls @ 1,000 mls/hr IV BOLUS ONE Stop: 03/28/18 16:06 Last Infusion: 03/28/18 16:10 Dose: 1,000 mls/hr Admin: 03/28/18 15:18 Dose: 1,000 mls/hr Ondansetron HCl (Zofran) 4 mg IV NOW ONE Stop: 03/28/18 13:06 Last Admin: 03/28/18 13:18 Dose: 4 mg Vital Signs - 8 hr 03/28/18 12:38 03/28/18 12:40 03/28/18 13:15 Temperature 97.8 F Pulse Rate 111 H 110 H 103 H Pulse Rate [Orthostatic Lying] Pulse Rate [Orthostatic Sitting] Pulse Rate [Orthostatic Standing] Respiratory Rate 22 22 22 Blood Pressure 135/85 H Blood Pressure [Orthostatic Lying] Blood Pressure [Orthostatic Sitting] Blood Pressure [Orthostatic Standing] Blood Pressure [Right Arm] 118/80 123/80 H Pulse Oximetry 99 96 99 03/28/18 14:10 03/28/18 15:11 03/28/18 15:14 Temperature Pulse Rate 89 95 H Pulse Rate [Orthostatic Lying] 92 H Pulse Rate [Orthostatic Sitting] 95 H Pulse Rate [Orthostatic Standing] 100 H Respiratory Rate 13 18 Blood Pressure Blood Pressure [Orthostatic Lying] 153/101 H Blood Pressure [Orthostatic Sitting] 127/75 H Blood Pressure [Orthostatic Standing] 68/50 L Blood Pressure [Right Arm] 159/94 H 158/86 H Pulse Oximetry 98 99 03/28/18 16:05 03/28/18 16:18 Temperature 97.1 F L 97.7 F Pulse Rate 88 84 Pulse Rate [Orthostatic Lying] Pulse Rate [Orthostatic Sitting] Pulse Rate [Orthostatic Standing] Respiratory Rate 16 16 Blood Pressure 148/72 H 159/89 H Blood Pressure [Orthostatic Lying] Blood Pressure [Orthostatic Sitting] Blood Pressure [Orthostatic Standing] Blood Pressure [Right Arm] Pulse Oximetry 98 100 MDM - Weakness Differential Diagnosis Differential diagnosis: Likely acute myocardial infarction Medical Records Attestation: I reviewed the patient's medical records. Lab Data Result diagrams: 03/28/18 13:50 03/28/18 14:05 Lab Results 03/28/18 03/28/18 03/28/18 Range/Units 13:50 13:50 13:50 WBC 8.5 (4.5-11.0) X10^3/uL RBC 3.94 L (4.0-5.2) X10^6/uL Hgb 12.6 (12.0-16.0) g/dL Hct 35.3 L (36-46) % MCV 89.6 (80-100) fL MCH 32.1 (26-34) PG MCHC 35.8 (30-36) % RDW 12.8 (11.6-14.8) % Plt Count 170 (150-400) X10^3/uL Neut % (Auto) 84.4 H (50-75) % Lymph % (Auto) 9.8 L (25-40) % [place] % (Auto) 5.6 (3-14) % Eos % (Auto) 0.1 L (2-4) % Baso % (Auto) 0.1 (0-2) % Neut # (Auto) 7100 H (0691-3295) /uL Sodium (137-145) mmol/L Potassium (3.4-5.1) mmol/L Chloride (98-107) mmol/L Carbon Dioxide (22-32) mmol/L BUN (7-17) mg/dL Creatinine (0.52-1.04) mg/dL Estimated GFR (>60) mL/min BUN/Creatinine Ratio (6-22) Glucose (80-110) mg/dL Lactate 0.9 (0.7-2.1) mmol/L Calcium (8.4-10.2) mg/dL Total Bilirubin (0.2-1.3) mg/dL AST (14-36) IU/L ALT (9-52) IU/L Alkaline Phosphatase (38-126) U/L Total Protein (6.3-8.2) g/dL Albumin (3.5-5.0) g/dL Globulin (1.7-4.1) g/dL Albumin/Globulin Ratio (1.0-2.8) Procalcitonin < 0.05 (<0.5) ng/mL //18 Range/Units 14:05 WBC (4.5-11.0) X10^3/uL RBC (4.0-5.2) X10^6/uL Hgb (12.0-16.0) g/dL Hct (36-46) % MCV (80-100) fL MCH (26-34) PG MCHC (30-36) % RDW (11.6-14.8) % Plt Count (150-400) X10^3/uL Neut % (Auto) (50-75) % Lymph % (Auto) (25-40) % [place] % (Auto) (3-14) % Eos % (Auto) (2-4) % Baso % (Auto) (0-2) % Neut # (Auto) (3251-8891) /uL Sodium 133 L (137-145) mmol/L Potassium 3.6 (3.4-5.1) mmol/L Chloride 95.0 L (98-107) mmol/L Carbon Dioxide 23.0 (22-32) mmol/L BUN 17.0 (7-17) mg/dL Creatinine 0.80 (0.52-1.04) mg/dL Estimated GFR > 60.0 (>60) mL/min BUN/Creatinine Ratio 21.3 (6-22) Glucose 75 L (80-110) mg/dL Lactate (0.7-2.1) mmol/L Calcium 9.3 (8.4-10.2) mg/dL Total Bilirubin 1.0 (0.2-1.3) mg/dL AST 19 (14-36) IU/L ALT 19 (9-52) IU/L Alkaline Phosphatase 57 (38-126) U/L Total Protein 6.3 (6.3-8.2) g/dL Albumin 3.8 (3.5-5.0) g/dL Globulin 2.5 (1.7-4.1) g/dL Albumin/Globulin Ratio 1.5 (1.0-2.8) Procalcitonin (<0.5) ng/mL Imaging Data Chest x-ray: Attestation: I personally reviewed and interpreted this imaging study as follows: Radiologist's impression: PROCEDURE: XR CHEST 1V INDICATIONS: cough TECHNIQUE: One view of the chest was acquired. COMPARISON: [facility], CHEST 1 VIEW, 09/20/2016, 18:04. [facility], CHEST 1 VIEW, 08/26/2016, 19:35. [facility], CHEST 2 VIEW, 01/23/2011, 14:53. FINDINGS: Surgical changes and devices: None. Lungs and pleura: No pleural effusions or pneumothorax. Lungs are clear. Mediastinum: Mediastinal contours appear normal. Heart size is normal. Bones and chest wall: No suspicious bony lesions. Overlying soft tissues appear unremarkable. IMPRESSION: Normal for age, source of current symptoms is not seen. Dictated by: Vijay Kohler M.D. on 03/28/2018 at 13:33 CT scan - abdomen: Attestation: I personally reviewed and interpreted this imaging study as follows: Radiologist's impression: View Report History Print [address] [address] [address] Scan Report Signed Patient: Rosalie Olson MR#: [id number] : 1940 Acct:[id number] Age/Sex: 78 / F Date of Service: 03/28/18 Loc: ED Accession Number: [id number] Procedure: CT abdomen pelvis w con Ordering Provider: Evelyne Carmona D.O. PROCEDURE: CT ABDOMEN PELVIS W CON INDICATIONS: worsening ab pain and weakness, recent colitis TECHNIQUE: After the administration of intravenous contrast, 5 mm thick sections acquired from the diaphragm to the symphysis. 5 mm coronal and sagittal reformats were acquired. For radiation dose reduction, the following was used: automated exposure control, adjustment of mA and/or kV according to patient size. COMPARISON: [facility], CT, CT ABDOMEN PELVIS W CON, 03/25/2018, 18:27. [facility], CT, ABDOMEN/PELVIS WITH CONTRAST, 11/30/2016, 23:56. [facility], CT, ABDOMEN/PELVIS WITH CONTRAST, 06/21/2015, 18:06. FINDINGS: Image quality: Excellent. ABDOMEN: Lung bases: Lung bases are clear. Heart size is normal. Small stable appearing pre-pericardial cyst abutting the right pericardium anteriorly Solid organs: Liver is normal in size and enhancement. Gallbladder has been previously resected. Biliary system is non dilated. Pancreas enhances normally. Spleen is normal in size and enhancement. No adrenal nodules. Kidneys demonstrate normal size and enhancement, without hydronephrosis. Peritoneum and bowel: Bowel loops demonstrate normal wall thickness and caliber. No free fluid or air. Nodes and vessels: No retroperitoneal or mesenteric adenopathy by size criteria. Aorta and inferior vena cava are normal in size. Miscellaneous: No ventral hernias. PELVIS: Genitourinary: Bladder wall thickness is normal. Miscellaneous: No inguinal hernias or adenopathy. Bones: No suspicious bony lesions. No vertebral body compression fractures. IMPRESSION: Small pre-pericardial cyst stable over time abutting the right anterior pericardial margin. This is an incidental finding. Within the abdomen a small amount of oral contrast remains within the colon from prior CT scanning. No sign of colitis or diverticulitis, no abscess is found. Source of current new pain is not identified. Dictated by: Vijay Kohler M.D. on 03/28/2018 at 14:18 ECG Data Attestation: I personally reviewed and interpreted this ECG as follows: Prior ECG tracings: available for review Interpretation: Sinus tachycardia rate 102 similar to previous No ST changes MDM Narrative Medical decision making narrative: Patient's blood work x-ray hand repeat CT in the within normal limits. Upon standing patient's blood pressure again drops to a systolic of 60 she is very unsteady on her feet. She likely has the orthostatic hypotension related to Parkinson's and not think it to be infectious at this time. She lives alone and is not able to are safely be discharged. She was seen initially after syncopal episode with similar symptoms. She did not have a syncopal episode this time however she is at risk for falls. Dr. Sullivan has been made aware of patient's test results and symptoms. She agrees to observation this time. Recommend more permanent placement. 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
[2018-03-28] MEDS: SODIUM CHLORIDE 0.9% 1,000 ML 1000 ML IV ×2 (13:18→15:18)
[2018-03-28] MEDS: ONDANSETRON 4 MG/2 ML INJ IV (13:18)
[2018-03-28 14:17] LABS: Add Manual Diff / Slide Review NO; Basophils Percent Auto 0.1 % (0-2); Eosinophils Percent Auto 0.1 % (2-4); Hematocrit 35.3 % (36-46); Hemoglobin 12.6 g/dL (12.0-16.0); Lymphocytes Percent Auto 9.8 % (25-40); Mean Corpuscular HGB Conc 35.8 % (30-36); Mean Corpuscular Hemoglobin 32.1 PG (26-34); Mean Corpuscular Volume 89.6 fL (80-100); Monocytes Percent Auto 5.6 % (3-14); Neutrophils Absolute Auto 7100 /uL (3000-5900); Neutrophils Percent Auto 84.4 % (50-75); Platelet Count 170 X10^3/uL (150-400); Red Blood Cell Count 3.94 X10^6/uL (4.0-5.2); Red Cell Distribution Width 12.8 % (11.6-14.8); White Blood Cell Count 8.5 X10^3/uL (4.5-11.0)
[2018-03-28 14:25] LABS: Alanine Aminotransferase 19 IU/L (9-52); Albumin 3.8 g/dL (3.5-5.0); Albumin Globulin Ratio 1.5 (1.0-2.8); Alkaline Phosphatase 57 U/L (38-126); Aspartate Aminotransferase 19 IU/L (14-36); BUN Creatinine Ratio 21.3 (6-22); Calcium 9.3 mg/dL (8.4-10.2); Estimated Glomerular Filt Rate > 60.0 mL/min (>60); Globulin 2.5 g/dL (1.7-4.1); Glucose 75 mg/dL (80-110); HEMOLYSIS < 15 (0-50); Potassium 3.6 mmol/L (3.4-5.1); Sodium 133 mmol/L (137-145); Total Protein 6.3 g/dL (6.3-8.2)
[2018-03-28 14:25] LABS: Lactate (Lactic Acid) 0.9 mmol/L (0.7-2.1)
[2018-03-28 14:45] LABS: Procalcitonin < 0.05 ng/mL (<0.5)
--- NOTE | 2018-03-28 15:12 | PC.NURSE ---
Very dizzy upon standing, had to sit down and assisted back to laying position. Upon laying down, 158/86
--- NOTE | 2018-03-28 16:50 | P.HP_ITS ---
History of Present Illness Chief complaint: Parkinsonian syndrome assoc with symptomatic Narrative: Rosalie Olson is a 78 year old female, patient of Purvi Preston who was recently admitted to the [facility] overnight for observation for lightheadedness and dizziness upon standing. She did have several loose stools prior to her hospital admission. She also did not drink enough water. Her lightheadedness was thought to be secondary to dehydration. Her symptoms were resolved after IV hydration. She was subsequently discharged home. Her daughter says she was doing well yesterday. This morning she called her daughter and told her that she was not feeling well. She felt lightheaded again. She also has mild suprapubic discomfort. She was brought back to the [facility] Emergency Room. She was noticed to have postural hypotension. She was admitted to the medicine floor for postural hypotension. 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 She lives by herself. Safety & Behavioral: Feels Safe in Current Yes Environment Tobacco & Substance use: Smoking Status Never smoker alcohol intake never alcohol intake frequency holiday/special occasion Substance Use Type does not use Comment: Her daughter a year ago of coronary artery disease with complication of MRSA infection after bypass surgery. Meds Home Medications Medication Instructions Recorded Confirmed Type coenzyme Q10 [Co Q-10] 100 mg PO DAILY #0 07/24/16 03/28/18 History ferrous gluconate 324 mg PO QDAY #30 12/04/16 03/28/18 Rx cholecalciferol (vitamin D3) 1 tab PO QDAY #0 04/16/17 03/28/18 History [Vitamin D3] pyridoxine (vitamin B6) 250 mg PO QDAY #0 04/16/17 03/28/18 History carbidopa-levodopa 3 tab PO TID #270 tab 08/12/17 03/28/18 Rx oxybutynin chloride [Ditropan XL] 5 mg PO QDAY #0 10/01/17 03/28/18 History sumatriptan succinate 50 mg PO PRN PRN #6 tab 10/13/17 03/28/18 Rx omeprazole 40 mg OR QDAY #30 cap 12/10/17 03/28/18 Rx carbidopa-levodopa 1 tab PO QAM AND QHS 03/25/18 03/28/18 History levofloxacin [Levaquin] 750 mg PO Q24H 7 Days #7 tab 03/25/18 03/28/18 Rx metronidazole [Flagyl] 500 mg PO TID #21 tab 03/25/18 03/28/18 Rx acetaminophen-codeine 1 tab PO Q6H PRN 03/28/18 03/28/18 History [Tylenol-Codeine #3] calcium carbonate-vitamin D3 1 tab PO QAM 03/28/18 03/28/18 History [Calcium 600 + D(3)] docusate sodium [Colace] 100 mg PO DAILY 03/28/18 03/28/18 History lactobacillus combination no.4 3,000 mmu cells PO DAILY 03/28/18 03/28/18 History [Probiotic] magnesium 100 mg PO DAILY PRN 03/28/18 03/28/18 History Allergies Allergy/AdvReac Type Severity Reaction Status Date / Time No Known Drug Allergies Allergy Verified 03/25/18 17:27 Review of Systems Constitutional Constitutional: Reports fatigue and Reports weakness Cardiovascular Comments: No chest pain or shortness of breath Gastrointestinal Gastrointestinal: Reports constipation Genitourinary Comments: Mild suprapubic tenderness Neurologic Neurologic: Reports weakness Endocrine Endocrine: Reports fatigue Comments: No polyuria or polydipsia Exam Vital Signs (past 8 hours): Vital Signs - 8 hr 3 03/28/18 12:38 03/28/18 12:40 03/28/18 13:15 Temperature 97.8 F Pulse Rate 111 H 110 H 103 H Pulse Rate [Orthostatic Lying] Pulse Rate [Orthostatic Sitting] Pulse Rate [Orthostatic Standing] Respiratory Rate 22 22 22 Blood Pressure 135/85 H Blood Pressure [Orthostatic Lying] Blood Pressure [Orthostatic Sitting] Blood Pressure [Orthostatic Standing] Blood Pressure [Right Arm] 118/80 123/80 H Pulse Oximetry 99 96 99 3 03/28/18 14:10 03/28/18 15:11 03/28/18 15:14 Temperature Pulse Rate 89 95 H Pulse Rate [Orthostatic Lying] 92 H Pulse Rate [Orthostatic Sitting] 95 H Pulse Rate [Orthostatic Standing] 100 H Respiratory Rate 13 18 Blood Pressure Blood Pressure [Orthostatic Lying] 153/101 H Blood Pressure [Orthostatic Sitting] 127/75 H Blood Pressure [Orthostatic Standing] 68/50 L Blood Pressure [Right Arm] 159/94 H 158/86 H Pulse Oximetry 98 99 3 03/28/18 16:05 03/28/18 16:18 Temperature 97.1 F L 97.7 F Pulse Rate 88 84 Pulse Rate [Orthostatic Lying] Pulse Rate [Orthostatic Sitting] Pulse Rate [Orthostatic Standing] Respiratory Rate 16 16 Blood Pressure 148/72 H 159/89 H Blood Pressure [Orthostatic Lying] Blood Pressure [Orthostatic Sitting] Blood Pressure [Orthostatic Standing] Blood Pressure [Right Arm] Pulse Oximetry 98 100 Pulse Oximetry 100 Oxygen Delivery Method Room Air Narrative Exam Narrative: GENERAL: Well-appearing, well-nourished and in no acute distress. HEENT: Head normocephalic, atraumatic. Eyes pupils equal round; dry mucous membranes NECK: Supple, no JVD, CHEST: Breath sounds equal bilaterally, no wheezes rales or rhonchi. CARDIAC: Regular rate and rhythm without murmurs, rubs or gallops. ABDOMEN: Soft, nontender. Normoactive bowel sounds all 4 quadrants. No guarding or rebound. EXTREMITIES: Normal range of motion, no clubbing or edema. NEUROLOGICAL: Alert and oriented; Normal muscle strength. She does have tremors in upper and lower extremities extremities SKIN: Warm, dry, no petechiae, no rashes or lesions. Objective Labs Result Diagrams: 03/28/18 13:50 03/28/18 14:05 Labs: Laboratory Results - last 24 hr 03/28/18 03/28/18 03/28/18 13:50 13:50 13:50 WBC 8.5 RBC 3.94 L Hgb 12.6 Hct 35.3 L MCV 89.6 MCH 32.1 MCHC 35.8 RDW 12.8 Plt Count 170 Neut % (Auto) 84.4 H Lymph % (Auto) 9.8 L [place] % (Auto) 5.6 Eos % (Auto) 0.1 L Baso % (Auto) 0.1 Neut # (Auto) 7100 H Sodium Potassium Chloride Carbon Dioxide BUN Creatinine Estimated GFR BUN/Creatinine Ratio Glucose Lactate 0.9 Calcium Total Bilirubin AST ALT Alkaline Phosphatase Total Protein Albumin Globulin Albumin/Globulin Ratio Procalcitonin < 0.05 03/28/18 14:05 WBC RBC Hgb Hct MCV MCH MCHC RDW Plt Count Neut % (Auto) Lymph % (Auto) [place] % (Auto) Eos % (Auto) Baso % (Auto) Neut # (Auto) Sodium 133 L Potassium 3.6 Chloride 95.0 L Carbon Dioxide 23.0 BUN 17.0 Creatinine 0.80 Estimated GFR > 60.0 BUN/Creatinine Ratio 21.3 Glucose 75 L Lactate Calcium 9.3 Total Bilirubin 1.0 AST 19 ALT 19 Alkaline Phosphatase 57 Total Protein 6.3 Albumin 3.8 Globulin 2.5 Albumin/Globulin Ratio 1.5 Procalcitonin Assessment & Plan Plan: Plan: 1. Postural hypotension: Possibly secondary to dehydration. We will continue IV hydration with normal saline at 125 cc an hour. 2. Suprapubic tenderness: Concerning for possible cystitis. We will check her urine analysis and reflux urine culture to rule out urinary tract infection 3. Constipation: Continue stool softeners per outpatient routine. Use suppository as needed. 4. Parkinson's disease: Continue outpatient medication regimen with Sinemet. 5. Code status: Do not resuscitate. Code status was discussed with the patient herself.
[2018-03-28] MEDS: SUMAtriptan 25 MG TABLET 50 MG PO (17:50)
[2018-03-28] MEDS: SODIUM CHLORIDE 0.9% 1,000 ML 125 ML IV (17:52)
[2018-03-28] MEDS: CARBIDOPA-LEVODOPA 25/100 TABLET 3 EACH PO ×2 (18:03→20:50)
[2018-03-28 18:58] LABS: Appearance Urine UA CLEAR; Bilirubin Urine UA NEGATIVE (NEGATIVE); Color Urine UA YELLOW; Glucose Urine UA NEGATIVE (Negative); Ketones Urine UA 1+ (NEGATIVE); Leukocyte Esterase Urine UA NEGATIVE (NEGATIVE); Nitrite Urine UA Negative (Negative); Occult Blood Urine UA NEGATIVE (Negative); Protein Urine UA NEGATIVE (Negative); Urobilinogen Urine UA 0.2 E.U./dL (0.2); pH Urine UA 6.5 (4.5-8.0)
[2018-03-28 19:23] LABS: Bacteria Urine Moderate (10-30); Culture Indicated Urine Cult Not Indicated; RBC Urine 0-1/HPF (0-5/HPF); Squamous Epithelial Cell Urine 1-5 /HPF; WBC Urine 1-5/HPF (0-5/HPF)
[2018-03-28] MEDS: CODEINE/ACETAMINOPHEN 30/300 TABLET 1 TAB PO (20:50)
[2018-03-28] MEDS: CARBIDOPA-LEVODOPA ER 50/200 TABLET 1 EACH PO (20:51)
[2018-03-29 00:55] VITALS: RESP 12
[2018-03-29 03:30] VITALS: RESP 16
[2018-03-29] MEDS: SODIUM CHLORIDE 0.9% 1,000 ML 125 ML IV (03:46)
--- NOTE | 2018-03-29 04:13 | PC.NURSE ---
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 Aware of high fall risk precautions & prefers all 4 bed side rails up. Stated has previously fallen at home and fractured right cheekbone. OOB ambulated to BR using walker & SBA, denied light-headedness or dizzyness, slightly unsteady during initial ambulation from bed sitting to standing. Pt prefers to keep right yellow sock off because it hurts her right great toe. Denied pain, IVF infusing well to left FA. Pt voided X1 in toilet & had urine dribbling while walking. Measuring hat placed in toilet to catch next void. Call light within reach.
[2018-03-29 05:00] VITALS: BP 142/88; PULSE 75; RESP 15; TEMP 36.8; O2SAT 99
[2018-03-29] MEDS: CODEINE/ACETAMINOPHEN 30/300 TABLET 1 TAB PO (05:14)
[2018-03-29 06:11] VITALS: RESP 14
[2018-03-29] MEDS: CARBIDOPA-LEVODOPA ER 50/200 TABLET 1 EACH PO (06:46)
[2018-03-29] MEDS: CARBIDOPA-LEVODOPA 25/100 TABLET 3 EACH PO ×2 (06:46→11:04)
[2018-03-29 07:00] VITALS: O2SAT 100
[2018-03-29 08:27] VITALS: BP 135/70; PULSE 69; RESP 16; TEMP 36.8; O2SAT 99
[2018-03-29] MEDS: SUMAtriptan 25 MG TABLET 50 MG PO (09:10)
[2018-03-29] MEDS: OXYBUTYNIN 5 MG ER TAB PO (09:11)
[2018-03-29] MEDS: PYRIDOXINE (VITAMIN B6) 50 MG TABLET 250 MG PO (09:11)
[2018-03-29] MEDS: PANTOPRAZOLE 40 MG TABLET PO (09:11)
[2018-03-29] MEDS: CALCIUM CARBONATE 600 MG TABLET PO (09:11)
[2018-03-29] MEDS: DOCUSATE 100 MG CAPSULE PO (09:11)
[2018-03-29] MEDS: FERROUS GLUCONATE 324 MG TABLET PO (09:11)
[2018-03-29] MEDS: ACIDOPHILUS/L.BULG/BIF.B/S.THERMOP TABLET 1 EACH PO (09:12)
[2018-03-29] MEDS: CHOLECALCIFEROL (VITAMIN D3) 1,000 UNIT TABLET 2000 UNIT PO (09:12)
--- NOTE | 2018-03-29 10:55 | P.DS_ITS ---
History of Present Illness Chief complaint: Parkinsonian syndrome assoc with symptomatic Narrative: Rosalie Olson is a 78 year old female patient of Purvi Preston who was recently admitted to the [facility] overnight for observation for lightheadedness and dizziness upon standing. She did have several loose stools prior to her hospital admission. She also did not drink enough water. Her lightheadedness was thought to be secondary to dehydration. Her symptoms were resolved after IV hydration. She was subsequently discharged home. Her daughter says she was doing well yesterday. This morning she called her daughter and told her that she was not feeling well. She felt lightheaded again. She also has mild suprapubic discomfort. She was brought back to the [facility] Emergency Room. She was noticed to have postural hypotension. She was admitted to the medicine floor for postural hypotension. Discharge Providers Date of admission: 03/28/18 16:05 Primary care physician: Merissa Bashir PA-C Discharge provider: Elliott Sykes MD Summary Discharge Diagnosis: 1. Acute dehydration, resolved 2. Parkinson's 3. DNR status Hospital Course: Patient admitted with dehydration and orthostatic hypotension. She was treated with IV fluid hydration. This morning her symptoms of lightheadedness have resolved. She is able to get out of bed to bathroom without any symptoms. She feels stable to discharge home. Vitals are stable as well. Status at Discharge Functional status at discharge: independent ambulation Overall status at discharge: patient is back to baseline Time Spent with Patient Less than 30 minutes Exam Vital Signs (past 8 hours): Vital Signs - 8 hr 3 03/29/18 03:30 03/29/18 05:00 03/29/18 06:11 Temperature 98.2 F Pulse Rate 75 Respiratory Rate 16 15 14 Blood Pressure 142/88 H Pulse Oximetry 99 3 03/29/18 08:27 Temperature 98.3 F Pulse Rate 69 Respiratory Rate 16 Blood Pressure 135/70 H Pulse Oximetry 99 Pulse Oximetry 99 Oxygen Delivery Method Room Air Objective Labs Result Diagrams: 03/28/18 13:50 03/28/18 14:05 Labs: Laboratory Results - last 24 hr 03/28/18 03/28/18 03/28/18 13:50 13:50 13:50 WBC 8.5 RBC 3.94 L Hgb 12.6 Hct 35.3 L MCV 89.6 MCH 32.1 MCHC 35.8 RDW 12.8 Plt Count 170 Neut % (Auto) 84.4 H Lymph % (Auto) 9.8 L [place] % (Auto) 5.6 Eos % (Auto) 0.1 L Baso % (Auto) 0.1 Neut # (Auto) 7100 H Sodium Potassium Chloride Carbon Dioxide BUN Creatinine Estimated GFR BUN/Creatinine Ratio Glucose Lactate 0.9 Calcium Total Bilirubin AST ALT Alkaline Phosphatase Total Protein Albumin Globulin Albumin/Globulin Ratio Procalcitonin < 0.05 Urine Color Urine Appearance Urine pH Ur Specific [place] Urine Protein Urine Glucose (UA) Urine Ketones Urine Occult Blood Urine Nitrate Urine Bilirubin Urine Urobilinogen Ur Leukocyte Esterase Urine RBC Urine WBC Ur Squamous Epith Cells Urine Bacteria Ur Culture Indicated? Micro UA Comment 03/28/18 03/28/18 14:05 17:04 WBC RBC Hgb Hct MCV MCH MCHC RDW Plt Count Neut % (Auto) Lymph % (Auto) [place] % (Auto) Eos % (Auto) Baso % (Auto) Neut # (Auto) Sodium 133 L Potassium 3.6 Chloride 95.0 L Carbon Dioxide 23.0 BUN 17.0 Creatinine 0.80 Estimated GFR > 60.0 BUN/Creatinine Ratio 21.3 Glucose 75 L Lactate Calcium 9.3 Total Bilirubin 1.0 AST 19 ALT 19 Alkaline Phosphatase 57 Total Protein 6.3 Albumin 3.8 Globulin 2.5 Albumin/Globulin Ratio 1.5 Procalcitonin Urine Color Yellow Urine Appearance Clear Urine pH 6.5 Ur Specific [place] 1.010 Urine Protein Negative Urine Glucose (UA) Negative Urine Ketones 1+ H Urine Occult Blood Negative Urine Nitrate Negative Urine Bilirubin Negative Urine Urobilinogen 0.2 Ur Leukocyte Esterase Negative Urine RBC 0-1/hpf Urine WBC 1-5/hpf Ur Squamous Epith Cells 1-5 /hpf Urine Bacteria Moderate (10-30) H Ur Culture Indicated? Cult not indicated Micro UA Comment Not Reportable Discharge Plan Discharge Plan Discharge Problem: Parkinsonian syndrome associated with symptomatic orthostatic hypotension Patient Disposition: Home, Self-Care Discharge Data Primary Care Provider: Merissa Bashir Attending Provider: Lulu Sullivan Admit Date/Time: 03/28/18 16:05 Quality VTE Deep Vein Thrombosis/Pulmonary Embolism Present on Admission: No
--- NOTE | 2018-03-29 11:58 | CM.DANOTE ---
DCP Initial Assessment and planned d/c today: Case reviewed, EMR reviewed and met with patient and her HODA Olson. (Son/Heather???s is .) Pt is a 78yo female admitted under OBSERVATION care for symptomatic orthostatic hypotension and dehydration, under the care of the Hospitalist team. PCP: ELENITA Ochoa Primary payor is: Medicare primary/AARP secondary Other health care agencies used: None Met with patient and HODA Romero. Introduced self as DCP, explained role and goals of DCP and as pt advocate. Both verbalized understanding, as patient was recently admitted under OBS status on 03/25 and discharged 03/26 for the same complaints: hypotension and dehydration. Pt is found fully dressed, sitting in bedside chair, as d/c orders have been written and she is to leave about 1:30pm today. She is fully A&O, although speech is somewhat slowed r/t Parkinson???s. She relates that she is fully independent at home, uses no services, and has multiple family members who check in on her, help her with transportation and shopping, etc. She is NOT homebound and not at all interested in services. States she has Advance Directives completed and they are on file here. She has multiple family members who work at , and she herself is a past employee, [employer]. She clarifies that her daughter Yasmin was her primary contact and CG, but in past year. Now her contact and POA is daughter Alea Mcadams, works at in the kitchen, phone # [phone]. [facility] notified by email of this by undersigned. She lives alone in a double-wide trailer. States she was independent at baseline for all ADLs prior to this hospitalization; family members only help with some errands and appts. DME of FWW, bath bench, and adjustable bed are all in the home. Readmit: Yes, as above. Plan: Home today with family transport, no services required. Declines any info on services. Miley Last RN
--- NOTE | 2018-03-29 13:37 | PC.NURSE ---
Discharge Note: Pt's iv removed. Pt given discharge teaching re: dehydration and orthostatic hypotension. Pt indicated understanding verbally. Pt with daughter and daughter in law at bedside. Pt discharged to ER entrance via wheel-chair without incident.
== END 2018-03-29 13:39 | disposition home or self-care (01) ==
LOC: ED 15:43 → AC 16:07
PROVIDERS: Admitting Provider Internal Medicine; Emergency Provider Emergency Medicine; Family Provider Physician Assistant; PCP Physician Assistant; Visit Provider Internal Medicine
DX: R53.1 Weakness (principal); G20 Parkinson's disease; M46.86 Other specified inflammatory spondylopathies, lumbar region; E78.5 Hyperlipidemia, unspecified; G25.81 Restless legs syndrome; K21.9 Gastro-esophageal reflux disease without esophagitis; E86.0 Dehydration; I95.1 Orthostatic hypotension; K59.00 Constipation, unspecified; Z66 Do not resuscitate
CPT/HCPCS: 36415; 71045; 74177; 80053; 81001; 81003; 83605; 84145; 85025; 87040; 93005; 93041; 96361; 96374; 99285; G0378; J2405; Q9967

== ENCOUNTER → 2018-04-06 12:16 | Outpatient (CLI) | payer MEDICARE, SELFPAY ==
[2018-03-28 16:30] VITALS: BMI 20.8
--- NOTE | 2018-04-06 12:18 | DI.RAD.S_ITS ---
PROCEDURE: XR STERNUM MIN 2V INDICATIONS: MASS OF STERNUM TECHNIQUE: 2 views of the sternum acquired. COMPARISON: None. FINDINGS: Bones: No fractures or dislocations but osteopenia results in relatively poor visualization of the sternum. No suspicious bony lesions. Soft tissues: Retrosternal soft tissues appear normal. IMPRESSION: The patient is relatively osteoporotic, and the quality of visualization of the sternum is very limited. This study in my opinion does not establish presence or absence of a mass lesion and followup by either continued clinical assessment or CT/MR scanning with contrast would be recommended. Dictated by: Vijay Kohler M.D. on 04/06/2018 at 13:29 Approved by: Vijay Kohler M.D. on 04/06/2018 at 13:29
== END ==
PROVIDERS: Family Provider Physician Assistant; PCP Physician Assistant; Visit Provider Physician Assistant
DX: M81.0 Age-related osteoporosis without current pathological fracture (principal); M89.9 Disorder of bone, unspecified
CPT/HCPCS: 71120

== ENCOUNTER → 2018-04-16 15:51 | Outpatient (CLI) | payer MEDICARE, SELFPAY ==
[2018-03-28 16:30] VITALS: BMI 20.8
--- NOTE | 2018-04-16 15:53 | DI.US.S_ITS ---
PROCEDURE: US CHEST COMPARISON: None. INDICATIONS: 78-year-old female with palpable sternal mass. FINDINGS: Real-time focused scanning was performed of the clinical site of concern. Just inferior to the sternum, a heterogeneous 2.4 x 1.6 x 1.4 cm lesion is present, with minimal internal vascular flow. No soft tissue fluid collections. IMPRESSION: Palpable region of concern corresponds with a 2.4 x 1.6 x 1.4 cm heterogeneous solid lesion on ultrasound, and remains indeterminate. Finding may simply represent a prominent costochondral junction, but neoplasm cannot be excluded. Consider further evaluation with chest CT, using a skin marker to denote the site of clinical concern. Dictated by: Ramiro Morton M.D. on 04/16/2018 at 16:24 Approved by: Ramiro Morton M.D. on 04/16/2018 at 16:27
== END ==
PROVIDERS: PCP Physician Assistant; Visit Provider Physician Assistant
DX: R22.2 Localized swelling, mass and lump, trunk (principal); R07.89 Other chest pain
CPT/HCPCS: 76604

== ENCOUNTER → 2018-04-23 15:06 | Outpatient (CLI) | payer MEDICARE, SELFPAY ==
[2018-03-28 16:30] VITALS: BMI 20.8
[2018-04-23 16:50] LABS: BUN Creatinine Ratio 31.7 (6-22); Blood Urea Nitrogen 19 mg/dL (7-17); Estimated Glomerular Filt Rate > 60.0 mL/min (>60)
== END ==
PROVIDERS: PCP Physician Assistant; Visit Provider Nurse Practitioner Family
DX: M79.9 Soft tissue disorder, unspecified (principal)
CPT/HCPCS: 36415; 82565; 84520

== ENCOUNTER → 2018-04-29 12:40 | Outpatient (CLI) | payer MEDICARE, SELFPAY ==
[2018-03-28 16:30] VITALS: BMI 20.8
--- NOTE | 2018-04-29 12:43 | DI.MRI.S_ITS ---
PROCEDURE: MR CHEST WO/W CON INDICATIONS: 78 year-old female with palpable sternal mass. TECHNIQUE: Axial 2-D FLASH in- and [id number], axial breath-hold T2 FSE, axial STIR FSE. Optional contrast may be given, followed by axial 2-D FLASH with fat saturation acquired over the lesion of concern. COMPARISON: [facility], CT, CT ABDOMEN PELVIS W CON, 03/28/2018, 13:25. [facility], US, US CHEST, 04/16/2018, 16:07. [facility], CR, XR STERNUM MIN 2V, 04/06/2018, 12:21. FINDINGS: Skin marker denotes the site of clinical concern. Image quality: Multiple sequences are degraded by patient motion due to Parkinson's disease. Region of interest: At the site of clinical concern, no suspicious soft tissue or osseous mass lesion is identified. There is right anterior asymmetric protrusion of the sub-xiphoid process, unchanged since March 28, 2018 CT scan. Bones: Nearby osseous structures demonstrate normal overall marrow signal. Soft tissues: 3.6 x 2.9 x 1.5 cm right epicardial cyst is again noted. Anterior hepatic 2.0 cm simple cyst is also present. There is borderline cardiomegaly. 1.5 cm lateral right renal cortical T2 hyperintense lesion appears isointense and with the renal cortex on postcontrast images, and appears new since March 28, 2018. IMPRESSION: 1. No suspicious osseous or soft tissue lesion at the site of clinical concern. Palpable lesion appears to correspond with right anterior asymmetric protrusion of the subxiphoid process, unchanged since March 28, 2018 CT scan. 2. 1.5 cm lateral right renal cortical solid lesion appears new since March 28, 2018, possibly small renal cell carcinoma. Consider further evaluation with renal protocol pre- and post contrast abdominal CT (less susceptible to motion artifact given patient's Parkinson's disease). 3. Right epicardial cyst as before, as well as anterior hepatic simple cyst. Dictated by: Ramiro Morton M.D. on 04/29/2018 at 15:12 Approved by: Ramiro Morton M.D. on 04/29/2018 at 15:29
== END ==
PROVIDERS: PCP Physician Assistant; Visit Provider Physician Assistant
DX: R22.2 Localized swelling, mass and lump, trunk (principal); N28.89 Other specified disorders of kidney and ureter; K76.89 Other specified diseases of liver
CPT/HCPCS: 71552; A9579

== ENCOUNTER → 2018-05-17 14:50 | Outpatient (CLI) | payer MEDICARE, SELFPAY ==
[2018-03-28 16:30] VITALS: BMI 20.8
[2018-05-17 16:04] LABS: BUN Creatinine Ratio 38.6 (6-22); Blood Urea Nitrogen 27 mg/dL (7-17); Calcium 9.4 mg/dL (8.4-10.2); Carbon Dioxide 31 mmol/L (22-32); Chloride 97 mmol/L (98-107); Estimated Glomerular Filt Rate > 60.0 mL/min (>60); Glucose 113 mg/dL (80-110); HEMOLYSIS < 15 (0-50); Potassium 3.8 mmol/L (3.4-5.1); Sodium 135 mmol/L (137-145)
== END ==
PROVIDERS: PCP Physician Assistant; Visit Provider Physician Assistant
DX: N28.89 Other specified disorders of kidney and ureter (principal); Z01.818 Encounter for other preprocedural examination
CPT/HCPCS: 36415; 80048

== ENCOUNTER → 2018-05-18 15:05 | Outpatient (CLI) | payer MEDICARE, SELFPAY ==
[2018-03-28 16:30] VITALS: BMI 20.8
--- NOTE | 2018-05-18 15:07 | DI.CT.S_ITS ---
PROCEDURE: CT ABDOMEN WO/W CON INDICATIONS: MASS ON RIGHT KIDNEY TECHNIQUE: Optional 5 mm thick noncontrast images acquired from the diaphragm to the iliac crests. After the administration of intravenous contrast, 5 mm thick images again acquired from the diaphragm to the iliac crests in the arterial and urographic phases. 5 mm thick coronal and sagittal reformats were then acquired. For radiation dose reduction, the following was used: automated exposure control, adjustment of mA and/or kV according to patient size. COMPARISON: [facility], MR, MR CHEST WO/W CON, 04/29/2018, 12:51. [facility], CT, CT ABDOMEN PELVIS W CON, 03/28/2018, 13:25. FINDINGS: Image quality: Excellent. Lung bases: Lung bases are clear. Heart size is normal. Genitourinary: There is no solid mass in the right lateral right renal cortex. A exophytic cyst is noted in the area there are several small eterminate hypodensities in kidneys, also likely a cyst. Other solid organs: Liver is normal in size and enhancement. Gallbladder is surgically absent. Biliary system is non dilated. Pancreas enhances normally. Spleen is normal in size and enhancement. No adrenal nodules. Peritoneum and bowel: Stomach is distended and filled with debris. Unenhanced bowel loops are normal in wall thickness and caliber. No free fluid or air. Nodes and vessels: No retroperitoneal or mesenteric adenopathy by size criteria. Aorta and inferior vena cava are normal in caliber. Bones: No suspicious bony lesions. No vertebral body compression fractures. Miscellaneous: No ventral hernias. IMPRESSION: 1. No solid renal masses. 2. The nodule in the lateral right kidney seen on MRI appears to be a small simple right renal cyst. 3. A parapelvic cyst in the right cardiophrenic angle. 4. A 1.7 cm hepatic cysts in the medial segment of the left hepatic lobe. 5. Distended stomach. Dictated by: Branden Jaquez M.D. on 05/18/2018 at 16:28 Transcribed by: SANIA on 05/18/2018 at 16:38 Approved by: Branden Jaquez M.D. on 05/18/2018 at 18:26
== END ==
PROVIDERS: PCP Physician Assistant; Visit Provider Physician Assistant
DX: N28.1 Cyst of kidney, acquired (principal); K76.89 Other specified diseases of liver; N94.89 Other specified conditions associated with female genital organs and menstrual cycle; K31.89 Other diseases of stomach and duodenum
CPT/HCPCS: 74170; Q9967

== ENCOUNTER 2018-06-11 16:34 | Emergency (ER) | payer MEDICARE, SELFPAY ==
[2018-03-28 16:30] VITALS: BMI 20.8
[2018-06-11 16:34] VITALS: BP 128/91; PULSE 101; RESP 18; TEMP 37.6; O2SAT 100; BMI 20.7
--- NOTE | 2018-06-11 18:33 | DI.RAD.S_ITS ---
PROCEDURE: XR CHEST 1V INDICATIONS: pain on inspiration TECHNIQUE: One view of the chest was acquired. COMPARISON: [facility], XR CHEST 1V, 03/28/2018, 13:13. [facility], CHEST 1 VIEW, 09/20/2016, 18:04. [facility], CHEST 1 VIEW, 08/26/2016, 19:35. [facility], CHEST 2 VIEW, 01/23/2011, 14:53. FINDINGS: Surgical changes and devices: None. Lungs and pleura: No pleural effusions or pneumothorax. Lungs are clear. Mediastinum: Mediastinal contours appear normal. Heart size is normal. There is calcification of the aortic arch. Bones and chest wall: No suspicious bony lesions. Overlying soft tissues appear unremarkable. IMPRESSION: No acute cardiopulmonary disease. Dictated by: Anil Case M.D. on 06/11/2018 at 22:00 Approved by: Anil Case M.D. on 06/11/2018 at 22:02
--- NOTE | 2018-06-11 18:49 | ED.FALL ---
HPI - Fall General Chief Complaint: Fall Stated Complaint: FELL LAST NIGHT FACE BRUISING, HURTS TO BREATH Time Seen by Provider: 06/11/18 18:09 Source: patient Mode of arrival: ambulatory Limitations: no limitations History of Present Illness HPI Narrative: Patient is an 78-year-old female who presents off after a fall. She has Parkinson's she does fall frequently. She does not remember the exact mechanism of falling. However she did fall last night she does not think she lost consciousness. She did cut her bottom lip, and has bilateral orbital ecchymosis. She denies being on any blood thinners no headache. She does have chronic ongoing neck pain which she says is not any worse. She now is complaining of chest pain. Denies any shortness of breath numbness tingling weakness nausea vomiting or vision changes. She thinks she fell a 28 year 30 last evening she did not wake her daughter tell her daughter found out today. complaint: fall Onset (ago): hour(s) Fall witnessed: no Place fall occurred: home Related Data Home Medications Medication Instructions Recorded Confirmed oxybutynin chloride [Ditropan XL] 5 mg PO QDAY #0 10/01/17 06/11/18 carbidopa-levodopa 1 tab PO QAM AND QHS 03/25/18 06/11/18 acetaminophen-codeine 1 tab PO Q6H PRN MDD 3 tabs 03/28/18 06/11/18 [Tylenol-Codeine #3] Dony [employer] (Closed) (Probiotic) 1 tab PO QAM 06/11/18 06/11/18 Dony Laxative (Magnesium) 1 tab PO PRN PRN 06/11/18 06/11/18 Dony Stool Softener 1 tab PO QAM 06/11/18 06/11/18 ranitidine HCl 1 tab PO DAILY 06/11/18 06/11/18 sumatriptan succinate 50 mg PO PRN PRN 06/11/18 06/11/18 Previous Rx's Medication Instructions Recorded carbidopa-levodopa 3 tab PO TID #270 tab 08/12/17 omeprazole 40 mg OR QDAY #30 cap 12/10/17 fluoxetine 10 mg tablet 10 mg PO DAILY #90 tab 05/03/18 Allergies Allergy/AdvReac Type Severity Reaction Status Date / Time No Known Drug Allergies Allergy Verified 06/11/18 17:08 Review of Systems Review of Systems All systems reviewed & are unremarkable except as noted in HPI and below Constitutional Denies chills, Denies fever(s), Reports frequent falls, Denies lethargy and Denies weakness Eyes Reports as per HPI, Denies blurry vision, Denies change in vision and Denies diplopia ENT Ears, Nose, Mouth, and Throat: Reports lip swelling, Denies epistaxis and Reports neck pain Cardiovascular Reports as per HPI, Reports chest pain, Denies irregular heart rhythm, Denies lightheadedness, Denies palpitations, Denies dyspnea, Denies dyspnea on exertion and Denies orthopnea Respiratory Denies cough, Denies dyspnea, Denies dyspnea on exertion and Denies wheezing Gastrointestinal Gastrointestinal: Denies abdominal pain, Denies change in bowel habits, Denies diarrhea, Denies nausea and Denies vomiting Musculoskeletal Reports as per HPI, Denies back pain, Denies deformity, Denies muscle weakness, Reports neck pain, Denies numbness and Denies tingling Integumentary/Breasts Reports as per HPI Neurologic Reports frequent falls, Denies numbness, Denies tingling and Denies weakness Endocrine Denies palpitations Hematologic/Lymphatic Denies easy bleeding and Denies easy bruising Allergic/Immunologic Reports lip swelling and Denies wheezing Exam Initial Vital Signs Initial Vital Signs: Vital Signs Temperature 99.7 F H 06/11/18 16:34 Pulse Rate 101 H 06/11/18 16:34 Respiratory Rate 18 06/11/18 16:34 Blood Pressure 128/91 H 06/11/18 16:34 Pulse Oximetry 100 06/11/18 16:34 Const General: cooperative and frail appearing Orientation: alert, awake and oriented x3 HENMT Mouth: lip abnormal (3mm lower back lip laceration flap-like open crosses the vermilion border) Eyes General: appearance normal, both eyes and all related structures Periorbital: periorbital findings abnormal bilaterally periorbital swelling (Inferiorly bilaterally) and periorbital ecchymosis (Inferiorly bilaterally) Conjunctivae: conjunctivae normal Pupils: PERRL EOM: EOM intact bilaterally Neck Neck: normal visual inspection, trachea midline and tender Chest Chest: normal inspection of the chest Resp Effort & Inspection: normal respiratory effort and able to speak in complete sentences Auscultation: clear to auscultation bilaterally, no rales, no rhonchi and no wheezes Cardio Rate: regular rate Rhythm: regular rhythm Heart Sounds: S1 normal and S2 normal GI Inspection: normal to inspection Palpation: soft, No firm, No guarding and No tender Auscultation: normal bowel sounds Back/Spine/Pelvis Back: normal to inspection and No back tenderness Cervical Spine: cervical spinal tenderness and No step off deformity Thoracic/Lumbar Spine: thoracic and lumbar spine normal to inspection and surgical scar(s) present (Lumbar scar present) Skin General: ecchymosis (Orbital as previously described) Trauma: laceration (Lower lip) Neuro General: alert, awake and oriented x3 Cranial Nerves: CN's II-XI intact bilaterally Cognition: normal cognition Speech: speech normal Motor: muscle tone normal throughout Sensory Exam: no sensory deficits noted Coordination: [id number] test normal Extrem General: normal to inspection, full ROM and no clubbing, cyanosis or edema [facility] Medical History Colitis (Chronic Unknown) Dementia (Chronic Unknown) Depression (Chronic Unknown) Dermatitis (Chronic Unknown) GERD (gastroesophageal reflux disease) (Chronic Unknown) Hyperlipemia (Chronic Unknown) Low back pain (Chronic ~03/2015) Migraines (Chronic Unknown) Osteopenia (Chronic Unknown) Parkinsons disease (Chronic Unknown) Restless leg syndrome (Chronic Unknown) H/O: hysterectomy (Resolved Unknown) Surgical History H/O Spinal surgery (Resolved Unknown) History of appendectomy (Resolved Unknown) History of neck surgery (Resolved Unknown) History of tonsillectomy (Resolved Unknown) Hx of cholecystectomy (Resolved Unknown) Social History household members: none lives independently: Yes other: She is . She lives by herself. Smoking Status: Never smoker second hand exposure: No alcohol intake: never substance use type: does not use additional social history: Her daughter a year ago of coronary artery disease with complication of MRSA infection after bypass surgery. Course Orders Ordered: Discontinued Medications Sodium Chloride (Normal Saline 0.9%) 1,000 mls @ 150 mls/hr IV CONT ANNALISE Last Infusion: 06/11/18 22:02 Dose: 0 mls/hr Admin: 08/10/18 19:04 Dose: 150 mls/hr Consultations Consultation #1: Dr. Huntley has been updated on CT results. Agrees with outpatient follow-up. Call office Thursday morning Vital Signs - 8 hr 06/11/18 16:34 Temperature 99.7 F H Pulse Rate 101 H Respiratory Rate 18 Blood Pressure 128/91 H Pulse Oximetry 100 - Fall Lab Data Attestation: I reviewed the patient's lab results. Result diagrams: 06/11/18 19:30 06/11/18 19:30 Lab Results 06/11/18 06/11/18 Range/Units 19:30 19:30 WBC 10.2 (4.5-11.0) X10^3/uL RBC 4.03 (4.0-5.2) X10^6/uL Hgb 12.8 (12.0-16.0) g/dL Hct 36.9 (36-46) % MCV 91.7 (80-100) fL MCH 31.7 (26-34) PG MCHC 34.6 (30-36) % RDW 13.1 (11.6-14.8) % Plt Count 196 (150-400) X10^3/uL Neut % (Auto) 76.7 H (50-75) % Lymph % (Auto) 14.5 L (25-40) % [place] % (Auto) 7.2 (3-14) % Eos % (Auto) 1.3 L (2-4) % Baso % (Auto) 0.3 (0-2) % Neut # (Auto) 7800 H (7131-5699) /uL Sodium 133 L (137-145) mmol/L Potassium 4.2 (3.4-5.1) mmol/L Chloride 95 L (98-107) mmol/L Carbon Dioxide 30 (22-32) mmol/L BUN 30 H (7-17) mg/dL Creatinine 0.90 (0.52-1.04) mg/dL Estimated GFR > 60.0 (>60) mL/min BUN/Creatinine Ratio 33.3 H (6-22) Glucose 89 (80-110) mg/dL Calcium 9.7 (8.4-10.2) mg/dL Total Bilirubin 1.1 (0.2-1.3) mg/dL AST 15 (14-36) IU/L ALT 12 (9-52) IU/L Alkaline Phosphatase 57 (38-126) U/L Total Creatine Kinase 41 (30-135) U/L Troponin I < 0.012 (0.01-0.034) ng/mL Total Protein 6.2 L (6.3-8.2) g/dL Albumin 4.0 (3.5-5.0) g/dL Globulin 2.2 (1.7-4.1) g/dL Albumin/Globulin Ratio 1.8 (1.0-2.8) Imaging Data CT scan - head: Radiologist's impression: PROCEDURE: CT HEAD/BRAIN WO CON INDICATIONS: fall forward last night TECHNIQUE: Noncontrast 4.5 mm thick angled axial sections acquired from the foramen magnum to the vertex, with coronal and sagittal reformats. For radiation dose reduction, the following was used: automated exposure control, adjustment of mA and/or kV according to patient size. COMPARISON: [facility], CT, CT ABDOMEN WO/W CON, 05/18/2018, 15:21. [facility], CT, CT ABDOMEN PELVIS W CON, 03/28/2018, 13:25. [facility], CT, CT ABDOMEN PELVIS W CON, 03/25/2018, 18:27. [facility], CT, HEAD WITHOUT CONTRAST, 10/01/2017, 13:01. FINDINGS: Image quality: Excellent. CSF spaces: Basal cisterns are patent. No extra-axial fluid collections. Ventricles are normal in size and shape. Brain: No midline shift. No intracranial masses or hemorrhage. Diffuse subcortical and periventricular white matter hypoattenuation consistent with chronic microvascular ischemic changes. There is a dilated Virchow-Toni space versus old lacunar infarct in the left basal ganglia that is unchanged in appearance from 10/01/17. There is calcification of the internal carotid arteries. The basilar artery remains prominent, unchanged from prior exams. Skull and face: There is comminuted fracturing of the left inferior orbital floor. There is also fracturing of the anterior, posterior, and medial hidalgo of the left maxillary sinus. Sinuses: High attenuation fluid within the left maxillary sinus consistent with hemorrhage. IMPRESSION: #1. Comminuted fracturing of the left inferior orbital floor, without evidence of globe injury or muscular entrapment. #2. Comminuted fracturing of the anterior, posterior, and medial hidalgo of the left maxillary sinus, which is now filled with hemorrhage. #3. No acute intracranial abnormality. Dictated by: Anil Case M.D. on 06/11/2018 at 20:14 Approved by: Anil Case M.D. on 06/11/2018 at 20:21 CT c spine: Radiologist's impression: PROCEDURE: CT CERVICAL SPINE WO CON INDICATIONS: fall forward last night neck pain TECHNIQUE: Noncontrast 3 mm thick sections acquired from the skull base to the T4 level. Sagittal and coronal reformats were then constructed. For radiation dose reduction, the following was used: automated exposure control, adjustment of mA and/or kV according to patient size. COMPARISON: [facility], CT, CT ABDOMEN WO/W CON, 05/18/2018, 15:21. [facility], CT, CT ABDOMEN PELVIS W CON, 03/28/2018, 13:25. [facility], CT, CT ABDOMEN PELVIS W CON, 03/25/2018, 18:27. [facility], CT, HEAD WITHOUT CONTRAST, 10/01/2017, 13:01. FINDINGS: Image quality: Excellent. Bones: No fractures or dislocations. There is a mild superior endplate compression deformity of the T4 vertebral body, likely chronic. There are multilevel degenerative changes of the cervical spine. Soft tissues: Prevertebral soft tissues are normal in thickness. No apical pneumothoraces. IMPRESSION: #1. No acute cervical spine fracture through T1. #2. Multilevel degenerative changes of the cervical spine. #3. Superior endplate compression deformity of the T4 vertebral body, likely chronic. Correlation with point tenderness to exclude acute fracture recommended. Dictated by: Anil Case M.D. on 06/11/2018 at 20:30 Approved by: Anil Case M.D. on 06/11/2018 at 20:36 ct face: Radiologist's impression: PROCEDURE: CT FACIAL BONES WO CON INDICATIONS: fall forward bilateral orbital contusions TECHNIQUE: Noncontrast 2.5 mm thick axial images acquired from the mandible through the frontal sinuses, with coronal and sagittal reformatting. For radiation dose reduction, the following was used: automated exposure control, adjustment of mA and/or kV according to patient size. COMPARISON: [facility], CT, CT ABDOMEN WO/W CON, 05/18/2018, 15:21. [facility], CT, CT ABDOMEN PELVIS W CON, 03/28/2018, 13:25. [facility], CT, CT ABDOMEN PELVIS W CON, 03/25/2018, 18:27. [facility], CT, HEAD WITHOUT CONTRAST, 10/01/2017, 13:01. FINDINGS: Image quality: Excellent. Bones and teeth: There is comminuted fracturing of the left inferior orbital floor. There are additional fractures of the anterior, lateral, posterior, and medial hidalgo of the left maxillary sinus. Subtle cortical irregularity of the right inferior orbital floor and right maxillary sinus. Sinuses: Left maxillary sinus is opacified by hemorrhage. Soft tissues: There is soft tissue edema overlying the left maxilla. IMPRESSION: #1. Comminuted fracturing of the left inferior orbital floor without evidence of left globe injury or ocular muscle entrapment. #2. Comminuted fracturing of the left maxillary sinus, which is now filled with hemorrhage, with overlying subcutaneous edema. #3. Subtle cortical irregularity of the right inferior orbital floor and right maxillary sinus may represent additional nondisplaced fractures. Correlation with point tenderness is suggested. Dictated by: Anil Case M.D. on 06/11/2018 at 20:22 Approved by: Anil Case M.D. on 06/11/2018 at 20:26 ECG Data Attestation: I personally reviewed and interpreted this ECG as follows: Prior ECG tracings: available for review Interpretation: Normal sinus rhythm rate 84 slightly big T-waves noted in precordial leads similar to previous MDM Narrative Medical decision making narrative: The patient is awake and alert. Her lip laceration has been open for almost 24 hr, not possible at this time. No gross pus or sign of infection. Facial CT reveals blowout fracture of left orbit inferior wall, no entrapment signs. Dr. Huntley ENT has been called recommends outpatient follow-up. I discussed all findings with the patient and daughter, Education has been performed regarding treatment plan, diagnosis, warning signs and symptoms and all concerns have been addressed. Verbally agree with and understood all of the above. Discharge Plan Departure Patient Disposition: Home, Self-Care Clinical Impression: Closed fracture of left orbital floor, Laceration of lip with delay in treatment Discharge Date/Time: 06/11/18 22:04 Interventions: ED Discharge Assessment Last Done: 06/11/18 22:03 Instructions: DI for Orbital Fracture Activity Restrictions/Additional Instructions: DO NOT BLOW NOSE-DAB ONLY - call Dr. Huntley 1st thing Thursday morning to schedule follow-up appointment *You have been diagnosed with a left orbital fracture * ice 20 min at a time *Continue to take medications as directed -Tylenol if needed for pain *Follow up with your primary care provider in 2-3 days, follow up with ENT, Dr. Huntley on Thursday please call him 1st thing to schedule appointment -follow up with your eye doctor sometime next week call on Thursday to schedule appointment *Return to ER if you should have increased pain, vision loss or vision changes or any new, worsening or concerning symptoms Prescriptions: No Action carbidopa-levodopa 25 MG/100 MG tablet 3 tab PO TID Qty: 270 RF: 3 oxybutynin chloride [Ditropan XL] 5 MG tablet extended release 24hr 5 mg PO QDAY Qty: 0 RF: 0 omeprazole 40 MG capsule,delayed release(DR/EC) 40 mg OR QDAY Qty: 30 RF: 3 fluoxetine 10 mg tablet 10 mg PO DAILY Qty: 90 RF: 0 acetaminophen-codeine [Tylenol-Codeine #3] 300-30 mg Tablet 1 tab PO Q6H MDD 3 tabs PRN (Reason: Pain, Moderate) RF: 0 ranitidine HCl 150 mg tablet 1 tab PO DAILY RF: 0 [facility] (Probiotic) 1 tab PO QAM RF: 0 Dony Laxative (Magnesium) 100 mg tablet 1 tab PO PRN PRN (Reason: Constipation) RF: 0 Dony Stool Softener 1 tab PO QAM RF: 0 sumatriptan succinate 50 MG tablet 50 mg PO PRN PRN (Reason: Migraine Headache) RF: 0 carbidopa-levodopa 50-200 mg tablet extended release 1 tab PO QAM AND QHS RF: 0 Referrals: Kiel Huntley MD [Physician] - Donna Ferguson PA-C [Primary Care Provider] -
--- NOTE | 2018-06-11 18:55 | DI.CT.S_ITS ---
PROCEDURE: CT CERVICAL SPINE WO CON INDICATIONS: fall forward last night neck pain TECHNIQUE: Noncontrast 3 mm thick sections acquired from the skull base to the T4 level. Sagittal and coronal reformats were then constructed. For radiation dose reduction, the following was used: automated exposure control, adjustment of mA and/or kV according to patient size. COMPARISON: [facility], CT, CT ABDOMEN WO/W CON, 05/18/2018, 15:21. [facility], CT, CT ABDOMEN PELVIS W CON, 03/28/2018, 13:25. [facility], CT, CT ABDOMEN PELVIS W CON, 03/25/2018, 18:27. [facility], CT, HEAD WITHOUT CONTRAST, 10/01/2017, 13:01. FINDINGS: Image quality: Excellent. Bones: No fractures or dislocations. There is a mild superior endplate compression deformity of the T4 vertebral body, likely chronic. There are multilevel degenerative changes of the cervical spine. Soft tissues: Prevertebral soft tissues are normal in thickness. No apical pneumothoraces. IMPRESSION: #1. No acute cervical spine fracture through T1. #2. Multilevel degenerative changes of the cervical spine. #3. Superior endplate compression deformity of the T4 vertebral body, likely chronic. Correlation with point tenderness to exclude acute fracture recommended. Dictated by: Anil Case M.D. on 06/11/2018 at 20:30 Approved by: Anil Case M.D. on 06/11/2018 at 20:36
--- NOTE | 2018-06-11 18:55 | DI.CT.S_ITS ---
PROCEDURE: CT HEAD/BRAIN WO CON INDICATIONS: fall forward last night TECHNIQUE: Noncontrast 4.5 mm thick angled axial sections acquired from the foramen magnum to the vertex, with coronal and sagittal reformats. For radiation dose reduction, the following was used: automated exposure control, adjustment of mA and/or kV according to patient size. COMPARISON: [facility], CT, CT ABDOMEN WO/W CON, 05/18/2018, 15:21. [facility], CT, CT ABDOMEN PELVIS W CON, 03/28/2018, 13:25. [facility], CT, CT ABDOMEN PELVIS W CON, 03/25/2018, 18:27. [facility], CT, HEAD WITHOUT CONTRAST, 10/01/2017, 13:01. FINDINGS: Image quality: Excellent. CSF spaces: Basal cisterns are patent. No extra-axial fluid collections. Ventricles are normal in size and shape. Brain: No midline shift. No intracranial masses or hemorrhage. Diffuse subcortical and periventricular white matter hypoattenuation consistent with chronic microvascular ischemic changes. There is a dilated Virchow-Toni space versus old lacunar infarct in the left basal ganglia that is unchanged in appearance from 10/01/17. There is calcification of the internal carotid arteries. The basilar artery remains prominent, unchanged from prior exams. Skull and face: There is comminuted fracturing of the left inferior orbital floor. There is also fracturing of the anterior, posterior, and medial hidalgo of the left maxillary sinus. Sinuses: High attenuation fluid within the left maxillary sinus consistent with hemorrhage. IMPRESSION: #1. Comminuted fracturing of the left inferior orbital floor, without evidence of globe injury or muscular entrapment. #2. Comminuted fracturing of the anterior, posterior, and medial hidalgo of the left maxillary sinus, which is now filled with hemorrhage. #3. No acute intracranial abnormality. Dictated by: Anil Case M.D. on 06/11/2018 at 20:14 Approved by: Anil Case M.D. on 06/11/2018 at 20:21
--- NOTE | 2018-06-11 18:55 | DI.CT.S_ITS ---
PROCEDURE: CT FACIAL BONES WO CON INDICATIONS: fall forward bilateral orbital contusions TECHNIQUE: Noncontrast 2.5 mm thick axial images acquired from the mandible through the frontal sinuses, with coronal and sagittal reformatting. For radiation dose reduction, the following was used: automated exposure control, adjustment of mA and/or kV according to patient size. COMPARISON: [facility], CT, CT ABDOMEN WO/W CON, 05/18/2018, 15:21. [facility], CT, CT ABDOMEN PELVIS W CON, 03/28/2018, 13:25. [facility], CT, CT ABDOMEN PELVIS W CON, 03/25/2018, 18:27. [facility], CT, HEAD WITHOUT CONTRAST, 10/01/2017, 13:01. FINDINGS: Image quality: Excellent. Bones and teeth: There is comminuted fracturing of the left inferior orbital floor. There are additional fractures of the anterior, lateral, posterior, and medial hidalgo of the left maxillary sinus. Subtle cortical irregularity of the right inferior orbital floor and right maxillary sinus. Sinuses: Left maxillary sinus is opacified by hemorrhage. Soft tissues: There is soft tissue edema overlying the left maxilla. IMPRESSION: #1. Comminuted fracturing of the left inferior orbital floor without evidence of left globe injury or ocular muscle entrapment. #2. Comminuted fracturing of the left maxillary sinus, which is now filled with hemorrhage, with overlying subcutaneous edema. #3. Subtle cortical irregularity of the right inferior orbital floor and right maxillary sinus may represent additional nondisplaced fractures. Correlation with point tenderness is suggested. Dictated by: Anil Case M.D. on 06/11/2018 at 20:22 Approved by: Anil Case M.D. on 06/11/2018 at 20:26
[2018-06-11] MEDS: SODIUM CHLORIDE 0.9% 1,000 ML 150 ML IV (19:04)
[2018-06-11 19:46] LABS: Add Manual Diff / Slide Review NO; Basophils Percent Auto 0.3 % (0-2); Eosinophils Percent Auto 1.3 % (2-4); Hematocrit 36.9 % (36-46); Hemoglobin 12.8 g/dL (12.0-16.0); Lymphocytes Percent Auto 14.5 % (25-40); Mean Corpuscular HGB Conc 34.6 % (30-36); Mean Corpuscular Hemoglobin 31.7 PG (26-34); Mean Corpuscular Volume 91.7 fL (80-100); Monocytes Percent Auto 7.2 % (3-14); Neutrophils Absolute Auto 7800 /uL (3000-5900); Neutrophils Percent Auto 76.7 % (50-75); Platelet Count 196 X10^3/uL (150-400); Red Blood Cell Count 4.03 X10^6/uL (4.0-5.2); Red Cell Distribution Width 13.1 % (11.6-14.8); White Blood Cell Count 10.2 X10^3/uL (4.5-11.0)
[2018-06-11 19:58] LABS: Alanine Aminotransferase 12 IU/L (9-52); Albumin Globulin Ratio 1.8 (1.0-2.8); Alkaline Phosphatase 57 U/L (38-126); Aspartate Aminotransferase 15 IU/L (14-36); BUN Creatinine Ratio 33.3 (6-22); Bilirubin Total 1.1 mg/dL (0.2-1.3); Blood Urea Nitrogen 30 mg/dL (7-17); Calcium 9.7 mg/dL (8.4-10.2); Carbon Dioxide 30 mmol/L (22-32); Chloride 95 mmol/L (98-107); Creatine Kinase 41 U/L (30-135); Estimated Glomerular Filt Rate > 60.0 mL/min (>60); Globulin 2.2 g/dL (1.7-4.1); Glucose 89 mg/dL (80-110); HEMOLYSIS < 15 (0-50); Potassium 4.2 mmol/L (3.4-5.1); Sodium 133 mmol/L (137-145); Total Protein 6.2 g/dL (6.3-8.2)
[2018-06-11 20:10] LABS: Troponin I < 0.012 ng/mL (0.01-0.034)
[2018-06-11 22:03] VITALS: BP 106/85; PULSE 82; RESP 15; O2SAT 100
== END 2018-06-11 22:04 | disposition home or self-care (01) ==
PROVIDERS: Emergency Provider Emergency Medicine; PCP Physician Assistant
DX: S02.32XA Fracture of orbital floor, left side, initial encounter for closed fracture (principal); S01.511A Laceration without foreign body of lip, initial encounter; W19.XXXA Unspecified fall, initial encounter; R07.89 Other chest pain
CPT/HCPCS: 36415; 70450; 70486; 71045; 72125; 80053; 82550; 82553; 84484; 85025; 93005; 93010; 99283; 99285

== ENCOUNTER 2018-06-18 17:03 | Emergency (ER) | payer MEDICARE, SELFPAY ==
[2018-03-28 16:30] VITALS: BMI 20.8
[2018-06-18 17:12] VITALS: BP 110/67; PULSE 89; RESP 20; TEMP 37.2; O2SAT 100
--- NOTE | 2018-06-18 17:56 | DI.RAD.S_ITS ---
PROCEDURE: XR CHEST 1V INDICATIONS: chest pain TECHNIQUE: One view of the chest was acquired. COMPARISON: [facility], CR, XR CHEST 1V, 06/11/2018, 18:40. FINDINGS: Surgical changes and devices: None. Lungs and pleura: No pleural effusions or pneumothorax. Lungs are clear. Mediastinum: Mediastinal contours appear normal. Heart size is normal. Bones and chest wall: No suspicious bony lesions. Overlying soft tissues appear unremarkable. IMPRESSION: 1. No acute cardiopulmonary disease. Dictated by: Jaiden Salamanca M.D. on 06/18/2018 at 18:29 Approved by: Jaiden Salamanca M.D. on 06/18/2018 at 18:29
[2018-06-18 18:00] VITALS: BP 116/87; PULSE 84; RESP 16; O2SAT 100
[2018-06-18 18:02] LABS: Add Manual Diff / Slide Review NO; Basophils Percent Auto 0.5 % (0-2); Eosinophils Percent Auto 1.6 % (2-4); Hematocrit 41.6 % (36-46); Hemoglobin 14.2 g/dL (12.0-16.0); Lymphocytes Percent Auto 13.3 % (25-40); Mean Corpuscular HGB Conc 34.2 % (30-36); Mean Corpuscular Hemoglobin 31.4 PG (26-34); Mean Corpuscular Volume 91.9 fL (80-100); Monocytes Percent Auto 7.1 % (3-14); Neutrophils Absolute Auto 6800 /uL (3000-5900); Neutrophils Percent Auto 77.5 % (50-75); Platelet Count 231 X10^3/uL (150-400); Red Blood Cell Count 4.52 X10^6/uL (4.0-5.2); Red Cell Distribution Width 13.2 % (11.6-14.8); White Blood Cell Count 8.8 X10^3/uL (4.5-11.0)
[2018-06-18 18:08] LABS: Alanine Aminotransferase 8 IU/L (9-52); Albumin 4.3 g/dL (3.5-5.0); Albumin Globulin Ratio 1.5 (1.0-2.8); Alkaline Phosphatase 63 U/L (38-126); Aspartate Aminotransferase 17 IU/L (14-36); BUN Creatinine Ratio 23.8 (6-22); Bilirubin Total 0.8 mg/dL (0.2-1.3); Blood Urea Nitrogen 19 mg/dL (7-17); Calcium 10.1 mg/dL (8.4-10.2); Carbon Dioxide 31 mmol/L (22-32); Chloride 96 mmol/L (98-107); Creatine Kinase 22 U/L (30-135); Estimated Glomerular Filt Rate > 60.0 mL/min (>60); Globulin 2.8 g/dL (1.7-4.1); Glucose 119 mg/dL (80-110); HEMOLYSIS < 15 (0-50); Lipase 33 U/L (23-300); Potassium 4.8 mmol/L (3.4-5.1); Sodium 135 mmol/L (137-145); Total Protein 7.1 g/dL (6.3-8.2)
[2018-06-18 18:21] LABS: Troponin I < 0.012 ng/mL (0.01-0.034)
--- NOTE | 2018-06-18 18:40 | ED_ITS ---
HPI - Chest Pain General Chief Complaint: Chest Pain Stated Complaint: CHEST AND BACK PAIN, SOB Time Seen by Provider: 06/18/18 18:07 Source: patient and family Mode of arrival: ambulatory Limitations: no limitations History of Present Illness HPI narrative: Patient is an 78-year-old female who approximately 1 week ago sustained a fall with multiple facial fractures. She has been and follow up with providers since then to address these fractures. She returns today for chest and upper back pain. She states that it has been going on since her fall however it has now gotten to the point to where the medicine that she is taking at home is not been helping. No shortness of breath. Does get worse with palpation and deep breaths and movement. Related Data Home Medications Medication Instructions Recorded Confirmed oxybutynin chloride [Ditropan XL] 5 mg PO QDAY #0 10/01/17 06/18/18 carbidopa-levodopa 1 tab PO QAM AND QHS 03/25/18 06/18/18 acetaminophen-codeine 1 tab PO Q6H PRN MDD 3 tabs 03/28/18 06/18/18 [Tylenol-Codeine #3] Dony Colon Health (Probiotic) 1 tab PO QAM 06/11/18 06/18/18 Dony Laxative (Magnesium) 1 tab PO PRN PRN 06/11/18 06/18/18 Dony Stool Softener 1 tab PO QAM 06/11/18 06/18/18 ranitidine HCl 1 tab PO DAILY 06/11/18 06/18/18 sumatriptan succinate 50 mg PO PRN PRN 06/11/18 06/18/18 Previous Rx's Medication Instructions Recorded carbidopa-levodopa 3 tab PO TID #270 tab 08/12/17 omeprazole 40 mg OR QDAY #30 cap 12/10/17 fluoxetine 10 mg tablet 10 mg PO DAILY #90 tab 05/03/18 lidocaine 1 patch TOP DAILY PRN #1 each 06/18/18 tramadol 50 mg PO Q6H PRN #20 tab 06/18/18 Allergies Allergy/AdvReac Type Severity Reaction Status Date / Time No Known Drug Allergies Allergy Verified 06/18/18 17:12 Review of Systems Constitutional Denies fever(s) and Denies headache(s) ENT Ears, Nose, Mouth, and Throat: Denies headache(s) Cardiovascular Reports chest pain (Anterior chest wall), Denies palpitations and Denies dyspnea Respiratory Reports pain on inspiration and Denies dyspnea Gastrointestinal Gastrointestinal: Denies abdominal pain, Denies diarrhea, Denies nausea and Denies vomiting Genitourinary Denies dysuria and Denies flank pain Musculoskeletal Reports back pain (Upper back), Denies myalgias and Denies arthralgias Integumentary/Breasts Comments: Bruising to her face from the fall Neurologic Denies headache(s) Endocrine Denies palpitations Hematologic/Lymphatic Denies easy bleeding and Denies easy bruising [facility] Medical History Colitis (Chronic Unknown) Dementia (Chronic Unknown) Depression (Chronic Unknown) Dermatitis (Chronic Unknown) GERD (gastroesophageal reflux disease) (Chronic Unknown) Hyperlipemia (Chronic Unknown) Low back pain (Chronic ~03/2015) Migraines (Chronic Unknown) Osteopenia (Chronic Unknown) Parkinsons disease (Chronic Unknown) Restless leg syndrome (Chronic Unknown) H/O: hysterectomy (Resolved Unknown) Surgical History H/O Spinal surgery (Resolved Unknown) History of appendectomy (Resolved Unknown) History of neck surgery (Resolved Unknown) History of tonsillectomy (Resolved Unknown) Hx of cholecystectomy (Resolved Unknown) Family History Father Parkinsons disease Mother Arthritis Social History household members: none lives independently: Yes other: She is . She lives by herself. Smoking Status: Never smoker second hand exposure: No alcohol intake: never substance use type: does not use additional social history: Her daughter a year ago of coronary artery disease with complication of MRSA infection after bypass surgery. Exam Initial Vital Signs Initial Vital Signs: Vital Signs Temperature 98.9 F 06/18/18 17:12 Pulse Rate 89 06/18/18 17:12 Respiratory Rate 20 06/18/18 17:12 Blood Pressure 110/67 06/18/18 17:12 Pulse Oximetry 100 06/18/18 17:12 Const General: cooperative, well developed, well groomed and No acute distress Orientation: alert, awake and oriented x3 HENMT Face and sinus: other (Bruising to bilateral face just inferior to the eyes consistent with her facial fractures secondary to the fall.) Eyes EOM: EOM intact bilaterally Chest Chest: No crepitus and tenderness (Tenderness to palpation of the anterior chest wall just to the right of the upper 3rd of the sternum) Resp Effort & Inspection: normal respiratory effort Auscultation: clear to auscultation bilaterally Cardio Rate: regular rate Rhythm: regular rhythm Pulses: radial pulses present GI Inspection: non-distended Palpation: soft and No tender Back/Spine/Pelvis Cervical Spine: No cervical spinal tenderness and No step off deformity Thoracic/Lumbar Spine: paraspinal tenderness, thoracic spinal tenderness and No lumbar spinal tenderness Skin Other: Bruising to the face Neuro General: alert, awake and oriented x3 Extrem General: normal to inspection and capillary refill normal Psych Appearance: grossly normal and well kempt Course Orders Ordered: ED Orders 06/18/18 18:49 CT thoracic spine wo con Stat Discontinued Medications Hydrocodone Bitart/Acetaminophen (Magnolia 5/325) 1 tab PO NOW ONE Stop: 06/18/18 18:50 Last Admin: 06/18/18 19:09 Dose: 1 tab Vital Signs - 8 hr 06/18/18 20:16 Pulse Rate 72 Respiratory Rate 15 Blood Pressure 117/98 H Pulse Oximetry 99 MDM - Chest Pain Medical Records Data Attestation: I reviewed the patient's medical records. Lab Data Attestation: I reviewed the patient's lab results. Result diagrams: 06/18/18 17:16 06/18/18 17:16 Lab Results 06/18/18 06/18/18 Range/Units 17:16 17:16 WBC 8.8 (4.5-11.0) X10^3/uL RBC 4.52 (4.0-5.2) X10^6/uL Hgb 14.2 (12.0-16.0) g/dL Hct 41.6 (36-46) % MCV 91.9 (80-100) fL MCH 31.4 (26-34) PG MCHC 34.2 (30-36) % RDW 13.2 (11.6-14.8) % Plt Count 231 (150-400) X10^3/uL Neut % (Auto) 77.5 H (50-75) % Lymph % (Auto) 13.3 L (25-40) % [place] % (Auto) 7.1 (3-14) % Eos % (Auto) 1.6 L (2-4) % Baso % (Auto) 0.5 (0-2) % Neut # (Auto) 6800 H (4623-7599) /uL Sodium 135 L (137-145) mmol/L Potassium 4.8 (3.4-5.1) mmol/L Chloride 96 L (98-107) mmol/L Carbon Dioxide 31 (22-32) mmol/L BUN 19 H (7-17) mg/dL Creatinine 0.80 (0.52-1.04) mg/dL Estimated GFR > 60.0 (>60) mL/min BUN/Creatinine Ratio 23.8 H (6-22) Glucose 119 H (80-110) mg/dL Calcium 10.1 (8.4-10.2) mg/dL Total Bilirubin 0.8 (0.2-1.3) mg/dL AST 17 (14-36) IU/L ALT 8 L (9-52) IU/L Alkaline Phosphatase 63 (38-126) U/L Total Creatine Kinase 22 L (30-135) U/L Troponin I < 0.012 (0.01-0.034) ng/mL Total Protein 7.1 (6.3-8.2) g/dL Albumin 4.3 (3.5-5.0) g/dL Globulin 2.8 (1.7-4.1) g/dL Albumin/Globulin Ratio 1.5 (1.0-2.8) Lipase 33 (23-300) U/L Imaging Data Chest x-ray: Radiologist's impression: PROCEDURE: XR CHEST 1V INDICATIONS: chest pain TECHNIQUE: One view of the chest was acquired. COMPARISON: [facility], , XR CHEST 1V, 06/11/2018, 18:40. FINDINGS: Surgical changes and devices: None. Lungs and pleura: No pleural effusions or pneumothorax. Lungs are clear. Mediastinum: Mediastinal contours appear normal. Heart size is normal. Bones and chest wall: No suspicious bony lesions. Overlying soft tissues appear unremarkable. IMPRESSION: 1. No acute cardiopulmonary disease. Dictated by: Jaiden Salamanca M.D. on 06/18/2018 at 18:29 Approved by: Jaiden Salamanca M.D. on 06/18/2018 at 18:29 CT thoracic spine: Radiologist's impression: PROCEDURE: CT THORACIC SPINE WO CON INDICATIONS: Mid thoracic midline tenderness after fall 10 days ago TECHNIQUE: Noncontrast 3 mm thick sections acquired through the region of interest in the thoracic spine. Sagittal and coronal reformats were then constructed. For radiation dose reduction, the following was used: automated exposure control. COMPARISON: [facility], CT, T-SPINE WITH CONTRAST, 09/13/2008, 11:28. FINDINGS: Image quality: Excellent. Bones: There is a moderate to severe kyphosis of the thoracic spine centered at the T6 level. There is mild superior endplate scalloping of the T4 vertebral body of indeterminate acuity. Elsewhere, no acute vertebral body compression fractures. Visualized osseous structures appear osteopenic. Central spinal canal is of normal overall caliber. Soft tissues: No paravertebral masses or hematomas. Visualized posteromedial lungs demonstrate mild dependent atelectasis. IMPRESSION: 1. Mild superior endplate scalloping of the T4 vertebral body of indeterminate acuity. 2. Elsewhere, no acute compression fractures identified. 3. Moderate to severe kyphosis centered at T6. Dictated by: Jaiden Salamanca M.D. on 06/18/2018 at 19:28 Approved by: Jaiden Salamanca M.D. on 06/18/2018 at 19:34 ECG Data Attestation: I personally reviewed and interpreted this ECG as follows: Prior ECG tracings: not available for review Interpretation: Sinus rhythm Ventricular rate of 90 Normal axis Normal QRS Normal QTC No ST T wave changes MDM Narrative Medical decision making narrative: Patient with reproducible pain in the anterior chest wall just to the right of the sternum in the upper 1/3. She also has reproducible thoracic pain. She states that this was the pain that brought her in this evening. Has been going on for the past week. EKG was unremarkable. Chest x-ray was unremarkable. CT scan does show an end plate disruption at the T4 level. This does correspond generally to the area where she has pain. Uncertain if this is from the fall from approximately 1 week ago. No signs of spinal cord issues. Patient is neurovascularly intact. She was given a Magnolia here in the emergency department was seem to help her symptoms quite a bit. I did discuss pain control at home and also the concern for falling secondary to the drowsiness that these medications may cause. Patient's daughter was at bedside for these discussions. Will send home with Ultram and also lidocaine patches. They were given return precautions. They expressed understanding and agreement with plan. Discharge Plan Departure Patient Disposition: Home Clinical Impression: Anterior chest wall pain, Chronic thoracic spine pain Discharge Date/Time: 06/18/18 20:18 Interventions: ED Discharge Assessment Last Done: 06/18/18 20:16 Instructions: How to Prevent Falls Activity Restrictions/Additional Instructions: You can continue the pain medication like we discussed. You need to call your primary care doctor for a follow-up. You need to be careful when you are taking the medication to avoid falling. Return to the emergency department for any new or worsening symptoms Prescriptions: New tramadol 50 mg tablet 50 mg PO Q6H PRN (Reason: pain) Qty: 20 RF: 0 lidocaine 5 % adhesive patch,medicated 1 patch TOP DAILY PRN (Reason: pain) Qty: 1 RF: 0 No Action carbidopa-levodopa 25 MG/100 MG tablet 3 tab PO TID Qty: 270 RF: 3 oxybutynin chloride [Ditropan XL] 5 MG tablet extended release 24hr 5 mg PO QDAY Qty: 0 RF: 0 omeprazole 40 MG capsule,delayed release(DR/EC) 40 mg OR QDAY Qty: 30 RF: 3 fluoxetine 10 mg tablet 10 mg PO DAILY Qty: 90 RF: 0 acetaminophen-codeine [Tylenol-Codeine #3] 300-30 mg Tablet 1 tab PO Q6H MDD 3 tabs PRN (Reason: Pain, Moderate) RF: 0 ranitidine HCl 150 mg tablet 1 tab PO DAILY RF: 0 Dony Colon Health (Probiotic) 1 tab PO QAM RF: 0 Dony Laxative (Magnesium) 100 mg tablet 1 tab PO PRN PRN (Reason: Constipation) RF: 0 Dony Stool Softener 1 tab PO QAM RF: 0 sumatriptan succinate 50 MG tablet 50 mg PO PRN PRN (Reason: Migraine Headache) RF: 0 carbidopa-levodopa 50-200 mg tablet extended release 1 tab PO QAM AND QHS RF: 0
--- NOTE | 2018-06-18 18:49 | DI.CT.S_ITS ---
PROCEDURE: CT THORACIC SPINE WO CON INDICATIONS: Mid thoracic midline tenderness after fall 10 days ago TECHNIQUE: Noncontrast 3 mm thick sections acquired through the region of interest in the thoracic spine. Sagittal and coronal reformats were then constructed. For radiation dose reduction, the following was used: automated exposure control. COMPARISON: [facility], CT, T-SPINE WITH CONTRAST, 09/13/2008, 11:28. FINDINGS: Image quality: Excellent. Bones: There is a moderate to severe kyphosis of the thoracic spine centered at the T6 level. There is mild superior endplate scalloping of the T4 vertebral body of indeterminate acuity. Elsewhere, no acute vertebral body compression fractures. Visualized osseous structures appear osteopenic. Central spinal canal is of normal overall caliber. Soft tissues: No paravertebral masses or hematomas. Visualized posteromedial lungs demonstrate mild dependent atelectasis. IMPRESSION: 1. Mild superior endplate scalloping of the T4 vertebral body of indeterminate acuity. 2. Elsewhere, no acute compression fractures identified. 3. Moderate to severe kyphosis centered at T6. Dictated by: Jaiden Salamanca M.D. on 06/18/2018 at 19:28 Approved by: Jaiden Salamanca M.D. on 06/18/2018 at 19:34
[2018-06-18] MEDS: HYDROCODONE/ACET 5/325 TABLET 1 TAB PO (19:09)
[2018-06-18 20:16] VITALS: BP 117/98; PULSE 72; RESP 15; O2SAT 99
== END 2018-06-18 20:18 | disposition home or self-care (01) ==
PROVIDERS: Emergency Medicine; Emergency Provider Emergency Medicine; PCP Physician Assistant
DX: R07.89 Other chest pain (principal); M54.6 Pain in thoracic spine; G89.29 Other chronic pain
CPT/HCPCS: 36591; 71045; 72128; 80053; 82550; 82553; 83690; 84484; 85025; 93005; 93010; 99283; 99285

== ENCOUNTER 2019-03-25 14:57 | Emergency (ER) | payer MEDICARE, SELFPAY ==
[2018-03-28 16:30] VITALS: BMI 20.8
[2019-03-25 15:09] VITALS: BP 111/71; PULSE 81; RESP 15; TEMP 36.4; O2SAT 100; BMI 20.2
[2019-03-25 17:37] VITALS: BP 169/95; PULSE 74; RESP 17; O2SAT 100
--- NOTE | 2019-03-25 18:11 | DI.CT.S_ITS ---
PROCEDURE: CT HEAD/BRAIN WO CON INDICATIONS: glf, hit head TECHNIQUE: Noncontrast 4.5 mm thick angled axial sections acquired from the foramen magnum to the vertex, with coronal and sagittal reformats. For radiation dose reduction, the following was used: automated exposure control, adjustment of mA and/or kV according to patient size. COMPARISON: [facility], CT, CT HEAD/BRAIN WO CON, 06/11/2018, 18:56. FINDINGS: Image quality: Excellent. CSF spaces: Basal cisterns are patent. No extra-axial fluid collections. The ventricles are symmetric in size and shape. Brain: No intracranial bleeds or masses. There is cerebral volume loss for age, with resultant ventricular and sulcal prominence. There are periventricular and deep white matter chronic small vessel ischemic changes. There is intracranial internal carotid artery atherosclerosis. Skull and face: Calvarium and visualized facial bones appear intact, without suspicious lesions. Sinuses: Visualized sinuses and mastoids are clear. IMPRESSION: No acute intracranial abnormality. Dictated by: Nel Orlando M.D. on 03/25/2019 at 19:03 Approved by: Nel Orlando M.D. on 03/25/2019 at 19:04
--- NOTE | 2019-03-25 18:11 | DI.RAD.S_ITS ---
PROCEDURE: XR HIP W PEL IF DONE LT 2V INDICATIONS: pain s/p glf TECHNIQUE: AP pelvis with lateral view(s) of the left hip(s). COMPARISON: None. FINDINGS: Bones: No fractures or dislocations. Pelvic ring appears intact. No suspicious bony lesions. Mild periarticular osteophyte formation at the bilateral hip joints. Soft tissues: The visualized bowel gas pattern is normal. No suspicious soft tissue calcifications. IMPRESSION: No acute fracture. No osseous lesion. If clinical suspicion and/or symptoms persist, further assessment with repeat plainfilms, or advanced imaging (e.g., CT, MRI, or bone scan) may be helpful for further assessment. Dictated by: Nel Orlando M.D. on 03/25/2019 at 19:23 Approved by: Nel Orlando M.D. on 03/25/2019 at 19:23
[2019-03-25] MEDS: LIDOCAINE PATCH 1 EACH ADH..PATCH TOP (19:15)
--- NOTE | 2019-03-25 19:17 | ED.FALL ---
HPI - Fall <BROOKLYNN Ash-BC - Last Filed: 03/25/19 20:40> General Chief Complaint: Fall Stated Complaint: LEFT HIP PAIN FALL Time Seen by Provider: 03/25/19 18:00 Source: patient and family Mode of arrival: ambulatory Limitations: no limitations History of Present Illness HPI Narrative: The patient is an 79-year-old female with history of Parkinson's disease who presents after a ground level fall. She states she accidentally rolled out of bed yesterday morning. She complains of left hip pain. She states she hit her head. Denies any loss of consciousness. She denies any blood thinners. She states she has frequent falls related to her Parkinson's. She has not taken anything for pain. Of note she was able to ambulate into the emergency department with a walker. She denies any bruising numbness or tingling. Related Data Home Medications Medication Instructions Recorded Confirmed Napoles Stool Softener 1 tab PO QAM 06/11/18 03/25/19 sumatriptan succinate 50 mg PO PRN PRN 06/11/18 03/25/19 ropinirole 1 mg tablet 1 mg PO TID 01/10/19 03/25/19 carbidopa-levodopa 3 tab PO TID 03/25/19 03/25/19 fluoxetine 20 mg PO QAM 03/25/19 03/25/19 omeprazole 40 mg PO DAILY 03/25/19 03/25/19 oxybutynin chloride 10 mg PO DAILY 03/25/19 03/25/19 Previous Rx's Medication Instructions Recorded ranitidine 150 mg tablet 150 mg PO DAILY #90 tab 09/13/18 minocycline 50 mg capsule 50 mg PO DAILY #90 cap 10/05/18 hydrocodone-acetaminophen [[place]] 1 tab PO Q4-6H PRN #7 tab 03/25/19 lidocaine 1 patch TOP DAILY #15 each 03/25/19 Allergies Allergy/AdvReac Type Severity Reaction Status Date / Time No Known Drug Allergies Allergy Verified 11/11/18 09:47 Review of Systems <KEVIN AshBC - Last Filed: 03/25/19 20:40> Review of Systems GENERAL: Denies chills, fatigue, malaise, fever, sweats. HEENT: Denies sinus pain, ear pain, sore throat, difficulty swallowing, dizziness. RESPIRATORY: Denies dyspnea, cough, wheezing, hemoptysis, sputum. CARDIOVASCULAR: Denies chest pain, palpitations, orthopnea, edema, GASTROINTESTINAL: Denies nausea, vomiting, abdominal pain, diarrhea, constipation, melena. : Denies dysuria, frequency, incontinence, hematuria, urinary retention. MUSCULOSKELETAL: See HPI SKIN: See HPI NEUROLOGIC: Denies weakness, headache, numbness, change in speech, confusion, seizures, incoordination. PSYCHIATRIC: No concerning psychosocial issues. 12 point review of systems is negative except for those stated above Exam <BROOKLYNN Ash-BC - Last Filed: 03/25/19 20:40> Narrative Exam Narrative: GENERAL: Elderly female generalized lying on stretcher HEAD: Atraumatic. Normocephalic. No temporal or scalp tenderness. EYES: Pupils equal round and reactive. Extraocular motions intact. No scleral icterus. No injection or drainage. ENT: Nose without bleeding, purulent drainage or septal hematoma. Throat without erythema, tonsillar hypertrophy or exudate. Uvula midline. Airway patent. NECK: Trachea midline. No JVD or lymphadenopathy. Supple, nontender, no meningeal signs. CARDIOVASCULAR: Regular rate and rhythm RESPIRATORY: Clear to auscultation. Breath sounds equal bilaterally. No wheezes, rales, or rhonchi. No stridor. No accessory muscle use. GASTROINTESTINAL: Abdomen soft, non-tender, nondistended. No hepato-splenomegaly, or palpable masses. No guarding. EXTREMITIES: General pain to palpation left hip. Positive pedal pulses bilaterally. Patient is able to flex and extend left hip. Strength is equal lower extremities bilaterally. BACK: Nontender without deformity or crepitance. No flank tenderness. No pain to C-spine or spinal palpation. NEURO: AOx3. Clear speech. General trauma were noted. Her strength is equal upper and lower extremities bilaterally. SKIN: No erythema ecchymosis rash or abrasion noted left hip Initial Vital Signs Initial Vital Signs: Vital Signs Temperature 97.5 F L 03/25/19 15:09 Pulse Rate 81 03/25/19 15:09 Respiratory Rate 15 03/25/19 15:09 Blood Pressure 111/71 03/25/19 15:09 Pulse Oximetry 100 03/25/19 15:09 <Stanislav Smith DO - Last Filed: 03/26/19 01:30> Initial Vital Signs Initial Vital Signs: Vital Signs Temperature 97.5 F L 03/25/19 15:09 Pulse Rate 81 03/25/19 15:09 Respiratory Rate 15 03/25/19 15:09 Blood Pressure 111/71 03/25/19 15:09 Pulse Oximetry 100 03/25/19 15:09 PFSH <NICOL Ash - Last Filed: 03/25/19 20:40> Medical History Colitis (Chronic Unknown) Dementia (Chronic Unknown) Depression (Chronic Unknown) Dermatitis (Chronic Unknown) GERD (gastroesophageal reflux disease) (Chronic Unknown) Hyperlipemia (Chronic Unknown) Low back pain (Chronic ~03/2015) Migraines (Chronic Unknown) Osteopenia (Chronic Unknown) Parkinsons disease (Chronic Unknown) Restless leg syndrome (Chronic Unknown) H/O: hysterectomy (Resolved Unknown) Surgical History H/O Spinal surgery (Resolved Unknown) History of appendectomy (Resolved Unknown) History of neck surgery (Resolved Unknown) History of tonsillectomy (Resolved Unknown) Hx of cholecystectomy (Resolved Unknown) Family History Father Parkinsons disease Mother Arthritis Social History household members: none lives independently: Yes other: She is . She lives by herself. Smoking Status: Never smoker second hand exposure: No alcohol intake: never substance use type: does not use additional social history: Her daughter a year ago of coronary artery disease with complication of MRSA infection after bypass surgery. Family History Father Parkinsons disease Mother Arthritis Social History household members: none lives independently: Yes other: She is . She lives by herself. Smoking Status: Never smoker second hand exposure: No alcohol intake: never substance use type: does not use additional social history: Her daughter a year ago of coronary artery disease with complication of MRSA infection after bypass surgery. Course <NICOL Ash - Last Filed: 03/25/19 20:40> Orders Ordered: ED Orders 03/25/19 18:11 CT head/brain wo con Stat XR hip w pel if done LT 2V Stat Discontinued Medications Hydrocodone Bitart/Acetaminophen ([place] 5/325) 1 tab PO NOW ONE Stop: 03/25/19 19:45 Last Admin: 03/25/19 19:49 Dose: 1 tab Lidocaine (Lidoderm) 1 each TOP NOW ONE Stop: 03/25/19 19:10 Last Admin: 03/25/19 19:15 Dose: 1 each Vital Signs - 8 hr 03/25/19 17:37 03/25/19 20:13 Pulse Rate 74 78 Respiratory Rate 17 15 Blood Pressure 165/97 H Blood Pressure [Left Arm] 169/95 H Pulse Oximetry 100 100 <Stanislav Smith DO - Last Filed: 03/26/19 01:30> Orders Ordered: ED Orders 03/25/19 18:11 CT head/brain wo con Stat XR hip w pel if done LT 2V Stat Discontinued Medications Hydrocodone Bitart/Acetaminophen ([place] 5/325) 1 tab PO NOW ONE Stop: 03/25/19 19:45 Last Admin: 03/25/19 19:49 Dose: 1 tab Lidocaine (Lidoderm) 1 each TOP NOW ONE Stop: 03/25/19 19:10 Last Admin: 03/25/19 19:15 Dose: 1 each Vital Signs - 8 hr 03/25/19 17:37 03/25/19 20:13 Pulse Rate 74 78 Respiratory Rate 17 15 Blood Pressure 165/97 H Blood Pressure [Left Arm] 169/95 H Pulse Oximetry 100 100 MDM - Fall <NICOL Ash - Last Filed: 03/25/19 20:40> Imaging Data CT scan - head: Radiologist's impression: [address] [address] [address] Scan Report Signed Patient: Rosalie Olson [facility]#: [id number] : 8Acct:[id number] Age/Sex: 79 / FDate of Service: 03/25/19 Loc: ED Accession Number: [id number] Procedure: CT head/brain wo con Ordering Provider: Lnida Neal PROCEDURE: CT HEAD/BRAIN WO CON INDICATIONS: glf, hit head TECHNIQUE: Noncontrast 4.5 mm thick angled axial sections acquired from the foramen magnum to the vertex, with coronal and sagittal reformats. For radiation dose reduction, the following was used: automated exposure control, adjustment of mA and/or kV according to patient size. COMPARISON: Merged With [facility], CT, CT HEAD/BRAIN WO CON, 06/11/2018, 18:56. FINDINGS: Image quality: Excellent. CSF spaces: Basal cisterns are patent. No extra-axial fluid collections. The ventricles are symmetric in size and shape. Brain: No intracranial bleeds or masses. There is cerebral volume loss for age, with resultant ventricular and sulcal prominence. There are periventricular and deep white matter chronic small vessel ischemic changes. There is intracranial internal carotid artery atherosclerosis. Skull and face: Calvarium and visualized facial bones appear intact, without suspicious lesions. Sinuses: Visualized sinuses and mastoids are clear. IMPRESSION: No acute intracranial abnormality. Dictated by: Nel Orlando M.D. on 03/25/2019 at 19:03 Approved by: Nel Orlando M.D. on 03/25/2019 at 19:04 Hip x-ray: Radiologist's impression: Rosalie Olson 79 F [address] [place] [address] XRay Report Signed Patient: Rosalie Olson [facility]#: [id number] : 1940cct:[id number] Age/Sex: 79 / FDate of Service: 03/25/19 Loc: ED Accession Number: [id number] Procedure: XR hip w pel if done LT 2V Ordering Provider: Linda Neal-BC PROCEDURE: XR HIP W PEL IF DONE LT 2V INDICATIONS: pain s/p glf TECHNIQUE: AP pelvis with lateral view(s) of the left hip(s). COMPARISON: None. FINDINGS: Bones: No fractures or dislocations. Pelvic ring appears intact. No suspicious bony lesions. Mild periarticular osteophyte formation at the bilateral hip joints. Soft tissues: The visualized bowel gas pattern is normal. No suspicious soft tissue calcifications. IMPRESSION: No acute fracture. No osseous lesion. If clinical suspicion and/or symptoms persist, further assessment with repeat plainfilms, or advanced imaging (e.g., CT, MRI, or bone scan) may be helpful for further assessment. Dictated by: Nel Orlando M.D. on 03/25/2019 at 19:23 Approved by: Nel Orlando M.D. on 03/25/2019 at 19:23 [facility] Narrative Medical decision making narrative: The patient is an 79-year-old female who presents after rolling out of bed yesterday. She does have hip pain, but is able to ambulate. We did obtain a negative x-ray. Given that she is 79 and hit her head, I did obtain a head CT which came back negative. I did give her prescription of lidocaine patches. I discussed at length the pros and cons of use of narcotic pain relievers. I discussed at length the possibility of constipation and or increased fall risk. Patient stated she would like to use [place] so she can try to sleep. She states she does have family that would be able to stay with her tonight. The patient was ambulating around the emergency department with a walker. Discussed at length return precautions of chest pain, shortness of breath or neurological symptoms or any other acute concerns. Encouraged her to follow up with her primary care provider in the next few days. Patient discharged to [facility]. No questions or concerns upon discharge. Discharge Plan Departure Patient Disposition: Home Clinical Impression: Fall from ground level, Acute pain of left hip Contusion Qualifiers: Encounter type: initial encounter Contusion area: hip Laterality: left Qualified Code(s): S70.02XA - Contusion of left hip, initial encounter Discharge Date/Time: 03/25/19 20:04 Interventions: ED Discharge Assessment Last Done: 03/25/19 20:13 Instructions: DI for Contusion, How to Prevent Falls, DI for Hip Pain Activity Restrictions/Additional Instructions: I have given you lidocaine patches for pain. Be aware the prescription dose is 5%, but 4% is available [id number] I have also given a small prescription of [place] to help you sleep. Be aware this could be sedating and constipating. Please follow up with primary care provider in the next few days. Please come back to the emergency department for any acute concerns such as chest pain shortness of breath concern of head injury etc Prescriptions: New hydrocodone-acetaminophen [[place]] 5-325 mg tablet 1 tab PO Q4-6H PRN (Reason: pain) Qty: 7 RF: 0 lidocaine 5 % adhesive patch,medicated 1 patch TOP DAILY Qty: 15 RF: 0 No Action minocycline 50 mg capsule 50 mg PO DAILY Qty: 90 RF: 3 ranitidine HCl 150 mg tablet 150 mg PO DAILY Qty: 90 RF: 1 ropinirole 1 mg tablet 1 mg PO TID RF: 0 Napoles Stool Softener 1 tab PO QAM RF: 0 sumatriptan succinate 50 MG tablet 50 mg PO PRN PRN (Reason: Migraine Headache) RF: 0 oxybutynin chloride 10 mg tablet extended release 24hr 10 mg PO DAILY RF: 0 carbidopa-levodopa 25-100 mg tablet 3 tab PO TID RF: 0 fluoxetine 20 mg capsule 20 mg PO QAM RF: 0 omeprazole 40 mg capsule,delayed release(DR/EC) 40 mg PO DAILY RF: 0 Referrals: Donna Ferguson PA-C [Primary Care Provider] - <Stanislav Smith DO - Last Filed: 03/26/19 01:30> Cosign ED Attending [place]ature Attestation: I was immediately available in the department for consultation. Documentation has been reviewed. I agree with assessment and plan.
--- NOTE | 2019-03-25 19:20 | ED_ITS ---
HPI - Fall <BROOKLYNN Ash-BC - Last Filed: 03/25/19 20:40> General Chief Complaint: Fall Stated Complaint: LEFT HIP PAIN FALL Time Seen by Provider: 03/25/19 18:00 Source: patient and family Mode of arrival: ambulatory Limitations: no limitations History of Present Illness HPI Narrative: The patient is an 79-year-old female with history of Parkinson's disease who presents after a ground level fall. She states she accidentally rolled out of bed yesterday morning. She complains of left hip pain. She states she hit her head. Denies any loss of consciousness. She denies any blood thinners. She states she has frequent falls related to her Parkinson's. She has not taken anything for pain. Of note she was able to ambulate into the emergency department with a walker. She denies any bruising numbness or tingling. Related Data Home Medications Medication Instructions Recorded Confirmed Napoles Stool Softener 1 tab PO QAM 06/11/18 03/25/19 sumatriptan succinate 50 mg PO PRN PRN 06/11/18 03/25/19 ropinirole 1 mg tablet 1 mg PO TID 01/10/19 03/25/19 carbidopa-levodopa 3 tab PO TID 03/25/19 03/25/19 fluoxetine 20 mg PO QAM 03/25/19 03/25/19 omeprazole 40 mg PO DAILY 03/25/19 03/25/19 oxybutynin chloride 10 mg PO DAILY 03/25/19 03/25/19 Previous Rx's Medication Instructions Recorded ranitidine 150 mg tablet 150 mg PO DAILY #90 tab 09/13/18 minocycline 50 mg capsule 50 mg PO DAILY #90 cap 10/05/18 hydrocodone-acetaminophen [[place]] 1 tab PO Q4-6H PRN #7 tab 03/25/19 lidocaine 1 patch TOP DAILY #15 each 03/25/19 Allergies Allergy/AdvReac Type Severity Reaction Status Date / Time No Known Drug Allergies Allergy Verified 11/11/18 09:47 Review of Systems <KEVIN AshBC - Last Filed: 03/25/19 20:40> Review of Systems GENERAL: Denies chills, fatigue, malaise, fever, sweats. HEENT: Denies sinus pain, ear pain, sore throat, difficulty swallowing, dizziness. RESPIRATORY: Denies dyspnea, cough, wheezing, hemoptysis, sputum. CARDIOVASCULAR: Denies chest pain, palpitations, orthopnea, edema, GASTROINTESTINAL: Denies nausea, vomiting, abdominal pain, diarrhea, constipation, melena. : Denies dysuria, frequency, incontinence, hematuria, urinary retention. MUSCULOSKELETAL: See HPI SKIN: See HPI NEUROLOGIC: Denies weakness, headache, numbness, change in speech, confusion, seizures, incoordination. PSYCHIATRIC: No concerning psychosocial issues. 12 point review of systems is negative except for those stated above Exam <BROOKLYNN Ash-BC - Last Filed: 03/25/19 20:40> Narrative Exam Narrative: GENERAL: Elderly female generalized lying on stretcher HEAD: Atraumatic. Normocephalic. No temporal or scalp tenderness. EYES: Pupils equal round and reactive. Extraocular motions intact. No scleral icterus. No injection or drainage. ENT: Nose without bleeding, purulent drainage or septal hematoma. Throat without erythema, tonsillar hypertrophy or exudate. Uvula midline. Airway patent. NECK: Trachea midline. No JVD or lymphadenopathy. Supple, nontender, no meningeal signs. CARDIOVASCULAR: Regular rate and rhythm RESPIRATORY: Clear to auscultation. Breath sounds equal bilaterally. No wheezes, rales, or rhonchi. No stridor. No accessory muscle use. GASTROINTESTINAL: Abdomen soft, non-tender, nondistended. No hepato- splenomegaly, or palpable masses. No guarding. EXTREMITIES: General pain to palpation left hip. Positive pedal pulses bilaterally. Patient is able to flex and extend left hip. Strength is equal lower extremities bilaterally. BACK: Nontender without deformity or crepitance. No flank tenderness. No pain to C-spine or spinal palpation. NEURO: AOx3. Clear speech. General trauma were noted. Her strength is equal upper and lower extremities bilaterally. SKIN: No erythema ecchymosis rash or abrasion noted left hip Initial Vital Signs Initial Vital Signs: Vital Signs Temperature 97.5 F L 03/25/19 15:09 Pulse Rate 81 03/25/19 15:09 Respiratory Rate 15 03/25/19 15:09 Blood Pressure 111/71 03/25/19 15:09 Pulse Oximetry 100 03/25/19 15:09 <Stanislav Smith DO - Last Filed: 03/26/19 01:30> Initial Vital Signs Initial Vital Signs: Vital Signs Temperature 97.5 F L 03/25/19 15:09 Pulse Rate 81 03/25/19 15:09 Respiratory Rate 15 03/25/19 15:09 Blood Pressure 111/71 03/25/19 15:09 Pulse Oximetry 100 03/25/19 15:09 PFSH <NICOL Ash - Last Filed: 03/25/19 20:40> Medical History Colitis (Chronic Unknown) Dementia (Chronic Unknown) Depression (Chronic Unknown) Dermatitis (Chronic Unknown) GERD (gastroesophageal reflux disease) (Chronic Unknown) Hyperlipemia (Chronic Unknown) Low back pain (Chronic ~03/2015) Migraines (Chronic Unknown) Osteopenia (Chronic Unknown) Parkinsons disease (Chronic Unknown) Restless leg syndrome (Chronic Unknown) H/O: hysterectomy (Resolved Unknown) Surgical History H/O Spinal surgery (Resolved Unknown) History of appendectomy (Resolved Unknown) History of neck surgery (Resolved Unknown) History of tonsillectomy (Resolved Unknown) Hx of cholecystectomy (Resolved Unknown) Family History Father Parkinsons disease Mother Arthritis Social History household members: none lives independently: Yes other: She is . She lives by herself. Smoking Status: Never smoker second hand exposure: No alcohol intake: never substance use type: does not use additional social history: Her daughter a year ago of coronary artery disease with complication of MRSA infection after bypass surgery. Family History Father Parkinsons disease Mother Arthritis Social History household members: none lives independently: Yes other: She is . She lives by herself. Smoking Status: Never smoker second hand exposure: No alcohol intake: never substance use type: does not use additional social history: Her daughter a year ago of coronary artery disease with complication of MRSA infection after bypass surgery. Course <NICOL Ash - Last Filed: 03/25/19 20:40> Orders Ordered: ED Orders 03/25/19 18:11 CT head/brain wo con Stat XR hip w pel if done LT 2V Stat Discontinued Medications Hydrocodone Bitart/Acetaminophen ([place] 5/325) 1 tab PO NOW ONE Stop: 03/25/19 19:45 Last Admin: 03/25/19 19:49 Dose: 1 tab Lidocaine (Lidoderm) 1 each TOP NOW ONE Stop: 03/25/19 19:10 Last Admin: 03/25/19 19:15 Dose: 1 each Vital Signs - 8 hr 03/25/19 17:37 03/25/19 20:13 Pulse Rate 74 78 Respiratory Rate 17 15 Blood Pressure 165/97 H Blood Pressure [Left Arm] 169/95 H Pulse Oximetry 100 100 <Stanislav Smith DO - Last Filed: 03/26/19 01:30> Orders Ordered: ED Orders 03/25/19 18:11 CT head/brain wo con Stat XR hip w pel if done LT 2V Stat Discontinued Medications Hydrocodone Bitart/Acetaminophen ([place] 5/325) 1 tab PO NOW ONE Stop: 03/25/19 19:45 Last Admin: 03/25/19 19:49 Dose: 1 tab Lidocaine (Lidoderm) 1 each TOP NOW ONE Stop: 03/25/19 19:10 Last Admin: 03/25/19 19:15 Dose: 1 each Vital Signs - 8 hr 03/25/19 17:37 03/25/19 20:13 Pulse Rate 74 78 Respiratory Rate 17 15 Blood Pressure 165/97 H Blood Pressure [Left Arm] 169/95 H Pulse Oximetry 100 100 MDM - Fall <NICOL Ash - Last Filed: 03/25/19 20:40> Imaging Data CT scan - head: Radiologist's impression: [address] [address] [address] Scan Report Signed Patient: Rosalie Olson [facility]#: [id number] : 8Acct:[id number] Age/Sex: 79 / FDate of Service: 03/25/19 Loc: ED Accession Number: [id number] Procedure: CT head/brain wo con Ordering Provider: Linda Neal PROCEDURE: CT HEAD/BRAIN WO CON INDICATIONS: glf, hit head TECHNIQUE: Noncontrast 4.5 mm thick angled axial sections acquired from the foramen magnum to the vertex, with coronal and sagittal reformats. For radiation dose reduction, the following was used: automated exposure control, adjustment of mA and/or kV according to patient size. COMPARISON: [facility], CT, CT HEAD/BRAIN WO CON, 06/11/2018, 18:56. FINDINGS: Image quality: Excellent. CSF spaces: Basal cisterns are patent. No extra-axial fluid collections. The ventricles are symmetric in size and shape. Brain: No intracranial bleeds or masses. There is cerebral volume loss for age, with resultant ventricular and sulcal prominence. There are periventricular and deep white matter chronic small vessel ischemic changes. There is intracranial internal carotid artery atherosclerosis. Skull and face: Calvarium and visualized facial bones appear intact, without suspicious lesions. Sinuses: Visualized sinuses and mastoids are clear. IMPRESSION: No acute intracranial abnormality. Dictated by: Nel Orlando M.D. on 03/25/2019 at 19:03 Approved by: Nel Orlando M.D. on 03/25/2019 at 19:04 Hip x-ray: Radiologist's impression: Rosalie Olson 79 F 1940 [place] [address] XRay Report Signed Patient: Rosalie lOson [facility]#: [id number] : 1940cct:[id number] Age/Sex: 79 / FDate of Service: 03/25/19 Loc: ED Accession Number: [id number] Procedure: XR hip w pel if done LT 2V Ordering Provider: Linda Neal-BC PROCEDURE: XR HIP W PEL IF DONE LT 2V INDICATIONS: pain s/p glf TECHNIQUE: AP pelvis with lateral view(s) of the left hip(s). COMPARISON: None. FINDINGS: Bones: No fractures or dislocations. Pelvic ring appears intact. No suspicious bony lesions. Mild periarticular osteophyte formation at the bilateral hip joints. Soft tissues: The visualized bowel gas pattern is normal. No suspicious soft tissue calcifications. IMPRESSION: No acute fracture. No osseous lesion. If clinical suspicion and/or symptoms persist, further assessment with repeat plainfilms, or advanced imaging (e.g., CT, MRI, or bone scan) may be helpful for further assessment. Dictated by: Nel Orlando M.D. on 03/25/2019 at 19:23 Approved by: Nel Orlando M.D. on 03/25/2019 at 19:23 [facility] Narrative Medical decision making narrative: The patient is an 79-year-old female who presents after rolling out of bed yesterday. She does have hip pain, but is able to ambulate. We did obtain a negative x-ray. Given that she is 79 and hit her head, I did obtain a head CT which came back negative. I did give her prescription of lidocaine patches. I discussed at length the pros and cons of use of narcotic pain relievers. I discussed at length the possibility of constipation and or increased fall risk. Patient stated she would like to use [place] so she can try to sleep. She states she does have family that would be able to stay with her tonight. The patient was ambulating around the emergency department with a walker. Discussed at length return precautions of chest pain, shortness of breath or neurological symptoms or any other acute concerns. Encouraged her to follow up with her primary care provider in the next few days. Patient discharged to [facility]. No questions or concerns upon discharge. Discharge Plan Departure Patient Disposition: Home Clinical Impression: Fall from ground level, Acute pain of left hip Contusion Qualifiers: Encounter type: initial encounter Contusion area: hip Laterality: left Qualified Code(s): S70.02XA - Contusion of left hip, initial encounter Discharge Date/Time: 03/25/19 20:04 Interventions: ED Discharge Assessment Last Done: 03/25/19 20:13 Instructions: DI for Contusion, How to Prevent Falls, DI for Hip Pain Activity Restrictions/Additional Instructions: I have given you lidocaine patches for pain. Be aware the prescription dose is 5%, but 4% is available [id number] I have also given a small prescription of [place] to help you sleep. Be aware this could be sedating and constipating. Please follow up with primary care provider in the next few days. Please come back to the emergency department for any acute concerns such as chest pain shortness of breath concern of head injury etc Prescriptions: New hydrocodone-acetaminophen [[place]] 5-325 mg tablet 1 tab PO Q4-6H PRN (Reason: pain) Qty: 7 RF: 0 lidocaine 5 % adhesive patch,medicated 1 patch TOP DAILY Qty: 15 RF: 0 No Action minocycline 50 mg capsule 50 mg PO DAILY Qty: 90 RF: 3 ranitidine HCl 150 mg tablet 150 mg PO DAILY Qty: 90 RF: 1 ropinirole 1 mg tablet 1 mg PO TID RF: 0 Napoles Stool Softener 1 tab PO QAM RF: 0 sumatriptan succinate 50 MG tablet 50 mg PO PRN PRN (Reason: Migraine Headache) RF: 0 oxybutynin chloride 10 mg tablet extended release 24hr 10 mg PO DAILY RF: 0 carbidopa-levodopa 25-100 mg tablet 3 tab PO TID RF: 0 fluoxetine 20 mg capsule 20 mg PO QAM RF: 0 omeprazole 40 mg capsule,delayed release(DR/EC) 40 mg PO DAILY RF: 0 Referrals: Donna Ferguson PA-C [Primary Care Provider] - <Stanislav Smith DO - Last Filed: 03/26/19 01:30> Cosign ED Attending Israelature Attestation: I was immediately available in the department for consultation. Documentation has been reviewed. I agree with assessment and plan.
[2019-03-25] MEDS: HYDROCODONE/ACET 5/325 TABLET 1 TAB PO (19:49)
[2019-03-25 20:13] VITALS: BP 165/97; PULSE 78; RESP 15; O2SAT 100
== END 2019-03-25 20:04 | disposition home or self-care (01) ==
PROVIDERS: Emergency Provider Nurse Practitioner Family; PCP Physician Assistant
DX: S70.02XA Contusion of left hip, initial encounter (principal); S09.90XA Unspecified injury of head, initial encounter; W06.XXXA Fall from bed, initial encounter; Z91.81 History of falling
CPT/HCPCS: 70450; 73502; 99283; 99284

== ENCOUNTER → 2019-10-04 09:12 | Outpatient (CLI) | payer MEDICARE, SELFPAY ==
[2019-07-12 10:34] VITALS: BMI 20.8
--- NOTE | 2019-10-04 09:19 | DI.MG.S_ITS ---
BILATERAL DIGITAL SCREENING MAMMOGRAM 3D/2D WITH CAD: 10/04/2019 CLINICAL: Routine screening. Family history of breast cancer. Comparison is made to exams dated: 01/07/2016 mammogram, 03/05/2011 mammogram, and 10/11/2009 mammogram - [facility]. There are scattered fibroglandular elements in both breasts. Current study was also evaluated with a Computer Aided Detection (CAD) system. There are benign vascular calcifications in both breasts. There also are benign post operative findings in the left breast with linear scar markers overlying the left breast. No significant masses, calcifications, or other findings are seen in either breast. There has been no significant interval change. IMPRESSION: There is no mammographic evidence of malignancy. A 1 year screening mammogram is recommended. This exam was interpreted at Station ID: [id number]. NOTE: For mammograms, a report in lay terms will be sent to the patient. Approximately 15% of breast malignancies will not be visualized mammographically. In the management of a palpable breast mass, a negative mammogram must not discourage biopsy of a clinically suspicious lesion. Electronically Signed By: Anil Case M.D. ecl/:10/04/2019 17:04:59 letter sent: Normal Exam ACR BI-RADS Category 2: Benign Finding(s) 3342F
== END ==
PROVIDERS: PCP Physician Assistant; Visit Provider Physician Assistant
DX: Z12.31 Encounter for screening mammogram for malignant neoplasm of breast (principal); Z80.3 Family history of malignant neoplasm of breast
CPT/HCPCS: 77063; 77067

== ENCOUNTER 2020-01-25 16:06 | Emergency (ER) | payer MEDICARE, SELFPAY ==
[2019-07-12 10:34] VITALS: BMI 20.8
[2020-01-25 16:18] VITALS: BP 132/78; PULSE 76; RESP 18; TEMP 36.4; O2SAT 100
--- NOTE | 2020-01-25 16:42 | ED.FALL ---
HPI - Fall General Chief Complaint: Fall Stated Complaint: states fell at home Time Seen by Provider: 01/25/20 16:11 Source: patient Mode of arrival: Ambulatory Limitations: no limitations History of Present Illness HPI Narrative: 79-year-old female. With history of Parkinson's disease here for evaluation of injuries that she sustained when she fell earlier today. Patient states she was at home. Standing at her counter when she lost her balance. She states that she fell backwards. Slid down the counter that she was leaning against a landed on the floor. She did not hit her head. There was no loss of consciousness. She is not on anticoagulation. Since that time she has had low back pain and right-sided rib pain. Related Data Home Medications Medication Instructions Recorded Confirmed sumatriptan succinate 50 mg PO PRN PRN 06/11/18 11/29/19 ropinirole 1 mg tablet 1 mg PO TID 01/10/19 11/29/19 omeprazole 40 mg PO DAILY 03/25/19 11/29/19 oxybutynin chloride 10 mg PO DAILY 03/25/19 11/29/19 Napoles Stool Softener See Rx Instructions .ROUTE .COMPLEX 07/12/19 11/29/19 carbidopa 25 mg-levodopa 100 mg See Rx Instructions PO QID 11/29/19 11/29/19 tablet Previous Rx's Medication Instructions Recorded ranitidine HCl 150 mg tablet 150 mg PO DAILY #90 tab 07/12/19 minocycline 50 mg capsule 50 mg PO DAILY #90 cap 10/03/19 fluoxetine 20 mg capsule 20 mg PO QAM #90 cap 11/03/19 trazodone 50 mg tablet See Rx Instructions PO DAILY #90 11/29/19 tab tramadol [Ultram] 50 mg PO Q8H PRN #10 tab 01/25/20 Allergies Allergy/AdvReac Type Severity Reaction Status Date / Time No Known Drug Allergies Allergy Verified 11/29/19 11:47 Review of Systems Constitutional Constitutional: Denies fever(s) and Denies frequent falls ENT Ears, Nose, Mouth, and Throat: Denies neck pain Cardiovascular Cardiovascular: Denies chest pain and Denies dyspnea Respiratory Respiratory: Denies dyspnea Gastrointestinal Gastrointestinal: Denies abdominal pain, Denies nausea and Denies vomiting Musculoskeletal Musculoskeletal: Reports back pain, Denies myalgias, Denies arthralgias and Denies neck pain Comments: Right-sided flank pain Integumentary/Breasts Skin/Breast: Denies lesions and Denies rash Neurologic Neurologic: Denies behavioral changes and Denies frequent falls Psychiatric Psychiatric: Denies behavioral changes Hematologic/Lymphatic Hematologic/Lymphatic: Denies easy bleeding and Denies easy bruising Patient History Medical History Colitis (Chronic Unknown) Dementia (Chronic Unknown) Depression (Chronic Unknown) Dermatitis (Chronic Unknown) GERD (gastroesophageal reflux disease) (Chronic Unknown) Hyperlipemia (Chronic Unknown) Low back pain (Chronic ~03/2015) Migraines (Chronic Unknown) Osteopenia (Chronic Unknown) Parkinsons disease (Chronic Unknown) Restless leg syndrome (Chronic Unknown) Social History household members: none lives independently: Yes other: She is . She lives by herself. Smoking Status: Never smoker second hand exposure: No alcohol intake: never substance use type: does not use additional social history: Her daughter a year ago of coronary artery disease with complication of MRSA infection after bypass surgery. Smoking Status: Never smoker alcohol intake frequency: holidays/special occasions only Substance Use Type: does not use Exam Initial Vital Signs Initial Vital Signs: Vital Signs Temperature 97.6 F 01/25/20 16:18 Pulse Rate 76 01/25/20 16:18 Respiratory Rate 18 01/25/20 16:18 Blood Pressure 132/78 01/25/20 16:18 Pulse Oximetry 100 01/25/20 16:18 Const General: cooperative, comfortable and well developed Limitations: mental status not altered [facility] Head: normal to inspection and normocephalic Resp Effort & Inspection: normal respiratory effort Auscultation: clear to auscultation bilaterally Cardio Rate: regular rate Rhythm: regular rhythm Back/Spine/Pelvis Back: CVA tenderness (Right-sided posterior rib pain) Cervical Spine: No cervical spinal tenderness Thoracic/Lumbar Spine: No thoracic spinal tenderness and lumbar spinal tenderness Skin Other: Patient with the contusion right-sided posterior ribs Neuro General: alert and awake Other: Baseline Parkinson's shaking. Patient states this is not new Extrem General: normal to inspection, capillary refill normal and No edema Psych Appearance: grossly normal and well kempt Scores GCS Blakeslee coma scale eye opening: Spontaneous Shawn coma scale verbal response: Orientated Shawn coma scale motor response: Obey commands Shawn coma scale total score: 15 Nexus Score for C-Spine Focal Neurologic deficit present: No Midline spinal tenderness present: No Altered level of conciousness present: No Intoxication present: No Distracting Injury Present: No Nexus Criteria for C-spine: 0 Course Orders Ordered: ED Orders 01/25/20 16:42 XR lumbar spine 2-3V Stat XR ribs RT min 3V w CXR1V Stat Vital Signs Vital signs: Vital Signs - 8 hr 01/25/20 16:18 01/25/20 17:42 Temperature 97.6 F Pulse Rate 76 68 Respiratory Rate 18 20 Blood Pressure 171/78 H Blood Pressure [Right Arm] 132/78 Pulse Oximetry 100 100 MDM - Fall Imaging Data rib x-ray: Radiologist's Impression: [address] [address] XRay Report Signed Patient: Rosalie Olson [facility]#: [id number] : 8Acct:[id number] Age/Sex: 79 / FDate of Service: 01/25/20 Loc: ED Accession Number: [id number] Procedure: XR ribs RT min 3V w CXR1V Ordering Provider: Tyree Monterroso D.O. PROCEDURE: XR RIBS RT MIN 3V W CXR 1V INDICATIONS: right lower posterior rib pain after fall TECHNIQUE: 2 views of the right ribs were acquired, along with a single view chest. COMPARISON: None. FINDINGS: Surgical changes and devices: None. Bones and chest wall: No fractures or dislocations. No suspicious bony lesions. Overlying soft tissues appear unremarkable. Lungs and pleura: No pleural effusions or pneumothorax. Lungs appear clear. Mediastinum: Mediastinal contours appear normal. Heart size is normal. IMPRESSION: A fracture is not shown, no pneumothorax appears present. Followup delayed plain films may be warranted if unusual pain persists in a particular area. Also, nuclear medicine bone scan would provide an accurate method for detection of nondisplaced fractures. Dictated by: Vijay Kohler M.D. on 01/25/2020 at 17:10 Approved by: Vijay Kohler M.D. on 01/25/2020 at 17:11 Xray lumbar: Radiologist's Impression: [address] [address] XRay Report Signed Patient: Rosalie Olson [facility]#: [id number] : 1940Acct:[id number] Age/Sex: 79 / FDate of Service: 01/25/20 Loc: ED Accession Number: [id number] Procedure: XR lumbar spine 2-3V Ordering Provider: Tyree Monterroso D.O. PROCEDURE: XR LUMBAR SPINE 2-3V INDICATIONS: lumbar pain after fall TECHNIQUE: 3 views of the lumbar spine were acquired. COMPARISON: [facility], CR, L-SPINE 2-3 VIEWS, 07/31/2016, 19:07. [facility], CR, L-SPINE 2-3 VIEWS, 03/08/2015, 10:19. FINDINGS: Bones: 5 [id number] vertebrae are present. There is normal bony alignment. No vertebral body compression fractures. No suspicious bony lesions. Degenerative disc disease is again noted as is facet osteoarthritis along the lumbosacral line most prominent at L4-5 and L5-S1. Soft tissues: Overlying bowel gas pattern is normal. No suspicious soft tissue calcifications. IMPRESSION: No appreciable interval worsening of degenerative disc disease and facet osteoarthritis most prominent over the lower half of the LS spine. No trauma seen from recent fall. Dictated by: Vijay Kohler M.D. on 01/25/2020 at 17:11 Approved by: Vijay Kohler M.D. on 01/25/2020 at 17:12 MDM Narrative Medical decision making narrative: X-rays negative for acute fracture. She does have bruising on the right flank. I feel we can hold on further workup for now. Fever can hold on radiologic studies for now. We did discuss the importance of her taking deep breaths and avoiding splinting. We did discuss return precautions. Will send home with a prescription for tramadol. We did discuss this could make her drowsy and she needs to at all cost avoid falling again. Patient expressed understanding and agreement plan. Discharge Plan Departure Patient Disposition: Home Clinical Impression: Parkinson's disease Contusion of rib on right side Qualifiers: Encounter type: initial encounter Qualified Code(s): S20.211A - Contusion of right front wall of thorax, initial encounter Lower back pain Qualifiers: Chronicity: acute Back pain laterality: midline Sciatica presence: without sciatica Qualified Code(s): M54.5 - Low back pain Fall Qualifiers: Encounter type: initial encounter Qualified Code(s): W19.XXXA - Unspecified fall, initial encounter Discharge Date/Time: 01/25/20 17:50 Instructions: How to Prevent Falls Activity Restrictions/Additional Instructions: Use the pain medication like we discussed. Remember that this medication can make you drowsy. You need to take the steps that are needed to avoid falling. Be sure to take occasional deep breaths like we discussed. Contact your primary provider for follow-up. Return to the emergency department for any new or worsening symptoms Prescriptions: New tramadol [Ultram] 50 mg tablet 50 mg PO Q8H PRN (Reason: pain) Qty: 10 RF: 0 No Action trazodone 50 mg tablet See Rx Instructions PO DAILY Qty: 90 RF: 1 ropinirole 1 mg tablet 1 mg PO TID RF: 0 minocycline 50 mg capsule 50 mg PO DAILY Qty: 90 RF: 1 fluoxetine 20 mg capsule 20 mg PO QAM Qty: 90 RF: 1 Napoles Stool Softener See Rx Instructions .ROUTE .COMPLEX RF: 0 ranitidine HCl 150 mg tablet 150 mg PO DAILY Qty: 90 RF: 3 carbidopa-levodopa 25-100 mg tablet See Rx Instructions PO QID RF: 0 sumatriptan succinate 50 MG tablet 50 mg PO PRN PRN (Reason: Migraine Headache) RF: 0 oxybutynin chloride 10 mg tablet extended release 24hr 10 mg PO DAILY RF: 0 omeprazole 40 mg capsule,delayed release(DR/EC) 40 mg PO DAILY RF: 0 Referrals: Donna Ferguson PA-C [Primary Care Provider] -
[2020-01-25 17:42] VITALS: BP 171/78; PULSE 68; RESP 20; O2SAT 100
== END 2020-01-25 17:50 | disposition home or self-care (01) ==
PROVIDERS: Emergency Provider Emergency Medicine; PCP Physician Assistant
DX: S20.211A Contusion of right front wall of thorax, initial encounter (principal); M54.5 Low back pain; G20 Parkinson's disease; R07.81 Pleurodynia; W19.XXXA Unspecified fall, initial encounter
CPT/HCPCS: 71101; 72100; 99281; 99283

== ENCOUNTER → 2020-06-26 09:21 | Outpatient (CLI) | payer MEDICARE, SELFPAY ==
[2019-07-12 10:34] VITALS: BMI 20.8
[2020-06-26 10:06] LABS: Hematocrit 39.1 % (36-46); Hemoglobin 13.3 g/dL (12.0-16.0); Mean Corpuscular HGB Conc 34.1 % (30-36); Mean Corpuscular Hemoglobin 31.3 PG (26-34); Mean Corpuscular Volume 91.7 fL (80-100); Platelet Count 177 X10^3/uL (150-400); Red Blood Cell Count 4.26 X10^6/uL (4.0-5.2); Red Cell Distribution Width 13.4 % (11.6-14.8); White Blood Cell Count 6.4 X10^3/uL (4.5-11.0)
[2020-06-26 10:15] LABS: Hemoglobin A1C% w Est Avg Glu 5.3 % (4.0-6.0)
[2020-06-26 10:39] LABS: Albumin 4.3 g/dL (3.5-5.0); Albumin Globulin Ratio 1.7 (1.0-2.8); Alkaline Phosphatase 73 U/L (38-126); Aspartate Aminotransferase 20 IU/L (14-36); BUN Creatinine Ratio 15.7 (6-22); Bilirubin Total 0.9 mg/dL (0.2-1.3); Blood Urea Nitrogen 14 mg/dL (7-17); Calcium 9.9 mg/dL (8.4-10.2); Carbon Dioxide 29 mmol/L (22-32); Chloride 93 mmol/L (98-107); Estimated Glomerular Filt Rate > 60.0 mL/min (>60); Globulin 2.6 g/dL (1.7-4.1); Glucose 90 mg/dL (80-110); HEMOLYSIS < 15 (0-50); Potassium 4.2 mmol/L (3.4-5.1); Sodium 130 mmol/L (137-145); Total Protein 6.9 g/dL (6.3-8.2)
[2020-06-26 10:41] LABS: Alanine Aminotransferase < 4 IU/L (<35)
== END ==
PROVIDERS: PCP Nurse Practitioner Family; Referring Provider Nurse Practitioner Family; Visit Provider Nurse Practitioner Family
DX: E87.1 Hypo-osmolality and hyponatremia (principal); R79.9 Abnormal finding of blood chemistry, unspecified; R73.01 Impaired fasting glucose; R79.89 Other specified abnormal findings of blood chemistry; Z00.00 Encounter for general adult medical examination without abnormal findings
CPT/HCPCS: 36415; 80053; 83036; 85027

== ENCOUNTER → 2020-07-05 10:56 | Outpatient (CLI) | payer MEDICARE, SELFPAY ==
[2019-07-12 10:34] VITALS: BMI 20.8
[2020-07-05 13:36] LABS: BUN Creatinine Ratio 20.5 (6-22); Blood Urea Nitrogen 18 mg/dL (7-17); Calcium 9.7 mg/dL (8.4-10.2); Carbon Dioxide 31 mmol/L (22-32); Chloride 99 mmol/L (98-107); Estimated Glomerular Filt Rate > 60.0 mL/min (>60); Glucose 83 mg/dL (80-110); HEMOLYSIS < 15 (0-50); Potassium 4.1 mmol/L (3.4-5.1); Sodium 136 mmol/L (137-145)
== END ==
PROVIDERS: PCP Nurse Practitioner Family; Referring Provider Nurse Practitioner Family; Visit Provider Nurse Practitioner Family
DX: E87.1 Hypo-osmolality and hyponatremia (principal)
CPT/HCPCS: 36415; 80048

== ENCOUNTER → 2020-12-06 15:37 | Outpatient (CLI) | payer MEDICARE, SELFPAY ==
[2019-07-12 10:34] VITALS: BMI 20.8
[2020-12-06 15:51] LABS: RBC Urine None Seen (0-5/HPF)
[2020-12-06 16:26] LABS: Hematocrit 37.6 % (36-46); Hemoglobin 12.9 g/dL (12.0-16.0); Mean Corpuscular HGB Conc 34.3 % (30-36); Mean Corpuscular Hemoglobin 31.9 PG (26-34); Mean Corpuscular Volume 92.8 fL (80-100); Platelet Count 162 X10^3/uL (150-400); Red Blood Cell Count 4.05 X10^6/uL (4.0-5.2); Red Cell Distribution Width 13.4 % (11.6-14.8); White Blood Cell Count 7.3 X10^3/uL (4.5-11.0)
[2020-12-06 16:56] LABS: Albumin 4.2 g/dL (3.5-5.0); Albumin Globulin Ratio 1.5 (1.0-2.8); Alkaline Phosphatase 79 U/L (38-126); Aspartate Aminotransferase 23 IU/L (14-36); BUN Creatinine Ratio 20.2 (6-22); Bilirubin Total 0.5 mg/dL (0.2-1.3); Blood Urea Nitrogen 17 mg/dL (7-17); Calcium 9.6 mg/dL (8.4-10.2); Carbon Dioxide 32 mmol/L (22-32); Chloride 96 mmol/L (98-107); Estimated Glomerular Filt Rate > 60.0 mL/min (>60); Globulin 2.8 g/dL (1.7-4.1); Glucose 95 mg/dL (80-110); HEMOLYSIS < 15 (0-50); Magnesium 2.1 mg/dL (1.6-2.3); Potassium 4.4 mmol/L (3.4-5.1); Sodium 130 mmol/L (137-145)
[2020-12-06 17:18] LABS: Alanine Aminotransferase < 4 IU/L (<35)
[2020-12-06 17:29] LABS: TSH w/ Reflex to FT4 0.92 uIU/mL (0.47-4.68)
[2020-12-06 17:47] LABS: Vitamin B12 627 pg/mL (239-931)
[2020-12-07 17:03] LABS: Appearance Urine UA SL CLOUDY; Bilirubin Urine UA NEGATIVE (NEGATIVE); Color Urine UA YELLOW; Glucose Urine UA NEGATIVE (Negative); Ketones Urine UA NEGATIVE (NEGATIVE); Leukocyte Esterase Urine UA 1+ (NEGATIVE); Nitrite Urine UA NEGATIVE (Negative); Occult Blood Urine UA NEGATIVE (Negative); Protein Urine UA NEGATIVE (Negative); Specific Gravity Urine UA 1.015 (1.000-1.035); Urobilinogen Urine UA 0.2 E.U./dL (0.2)
[2020-12-07 17:06] LABS: pH Urine UA 6.5 (4.5-8.0)
[2020-12-07 17:29] LABS: Bacteria Urine Many (>30); Calcium Oxalate Crystals Urine Few; Squamous Epithelial Cell Urine 0-1 /HPF (0-5/HPF); WBC Urine 30-100/HPF (0-5/HPF)
[2020-12-07 17:30] LABS: Culture Indicated Urine Specimen Cultured
== END ==
PROVIDERS: PCP Nurse Practitioner Family; Referring Provider Nurse Practitioner Family; Visit Provider Nurse Practitioner Family
DX: R41.0 Disorientation, unspecified (principal); R47.81 Slurred speech
CPT/HCPCS: 36415; 80053; 81001; 82607; 83735; 84443; 85027; 87077; 87086; 87186

== ENCOUNTER → 2020-12-20 13:08 | Outpatient (CLI) | payer MEDICARE, SELFPAY ==
[2019-07-12 10:34] VITALS: BMI 20.8
--- NOTE | 2020-12-20 13:10 | DI.MRI.S_ITS ---
PROCEDURE: MR HEAD/BRAIN WO/W CON INDICATIONS: confusion/slurred speech TECHNIQUE: Noncontrast axial T1 spin echo, axial T2 fast spin echo, sagittal and axial FLAIR, coronal T2 fast spin echo, axial gradient echo, axial diffusion and ADC through the brain. After the administration of contrast, axial and coronal 3D VIBE or T1 spin echo with fat saturation through the brain. COMPARISON: [facility], CT, HEAD WITHOUT CONTRAST, 10/01/2017, 13:01. [facility], MR, BRAIN WITH AND WITHOUT CONTRAS, 09/12/2010, 16:22. FINDINGS: Image quality: Excellent. CSF Spaces: Basal cisterns are patent. No extra-axial fluid collections. Ventricles are normal in size and shape. Brain: No midline shift. No intracranial bleeds or masses. No abnormal intracranial enhancement. The brainstem appears normal. Diffusion-weighted images demonstrate no acute ischemic insults. No chronic ischemic insults. Normal intravascular flow voids are present. Skull and face: Calvarial marrow is normal in signal. Orbits appear normal. Sinuses: Sinuses and mastoids appear clear. IMPRESSION: [id number] microvascular atherosclerotic change in the deep white matter of each hemisphere but no sign of ischemic injury, inflammation, ventriculomegaly, or hemorrhage is found. A definite source of altered mental status is not seen. Dictated by: Vijay Kohler M.D. on 12/20/2020 at 15:09 Approved by: Vijay Kohler M.D. on 12/20/2020 at 15:10
== END ==
PROVIDERS: PCP Nurse Practitioner Family; Referring Provider Nurse Practitioner Family; Visit Provider Nurse Practitioner Family
DX: R41.0 Disorientation, unspecified (principal); R47.81 Slurred speech
CPT/HCPCS: 70553; A9579

== ENCOUNTER → 2021-01-14 15:24 | Outpatient (CLI) | payer MEDICARE, SELFPAY ==
[2019-07-12 10:34] VITALS: BMI 20.8
[2021-01-14] MEDS: COVID-19 VACC, Ad26(JANSSEN)/PF 0.5 ML IM (15:39)
== END ==
PROVIDERS: PCP Nurse Practitioner Family; Visit Provider Internal Medicine
DX: Z23 Encounter for immunization (principal)
CPT/HCPCS: 0031A; 91303

== ENCOUNTER → 2022-01-06 08:21 | Outpatient (CLI) | payer MEDICARE, SELFPAY ==
[2021-05-30 13:08] VITALS: BMI 20.8
[2022-01-06 09:52] LABS: Hematocrit 39.2 % (36-46); Mean Corpuscular HGB Conc 33.1 % (30-36); Mean Corpuscular Hemoglobin 30.2 PG (26-34); Mean Corpuscular Volume 91.2 fL (80-100); Platelet Count 169 X10^3/uL (150-400); White Blood Cell Count 7.1 X10^3/uL (4.5-11.0)
[2022-01-06 10:13] LABS: Alanine Aminotransferase 8 IU/L (<35); Albumin 4.3 g/dL (3.5-5.0); Albumin Globulin Ratio 1.5 (1.0-2.8); Alkaline Phosphatase 105 U/L (38-126); Aspartate Aminotransferase 23 IU/L (14-36); BUN Creatinine Ratio 24.8 (6-22); Bilirubin Total 0.8 mg/dL (0.2-1.3); Blood Urea Nitrogen 26 mg/dL (7-17); Calcium 9.6 mg/dL (8.4-10.2); Carbon Dioxide 33 mmol/L (22-32); Chloride 100 mmol/L (98-107); Cholesterol 164 mg/dL (140-199); Estimated Glomerular Filt Rate 50.1 mL/min (>60); Globulin 2.8 g/dL (1.7-4.1); Glucose 105 mg/dL (80-110); HDL Cholesterol 61 mg/dL (40-60); HEMOLYSIS < 15 (0-50); LDL Cholesterol Calculated 79 mg/dL (<100); Sodium 136 mmol/L (137-145); Total Protein 7.1 g/dL (6.3-8.2); Triglycerides 119 mg/dL (35-150)
[2022-01-06 10:41] LABS: TSH w/ Reflex to FT4 0.75 uIU/mL (0.47-4.68)
== END ==
PROVIDERS: PCP Nurse Practitioner Family; Referring Provider Nurse Practitioner Family; Visit Provider Nurse Practitioner Family
DX: G20 Parkinson's disease (principal); Z13.6 Encounter for screening for cardiovascular disorders; F33.1 Major depressive disorder, recurrent, moderate; Z00.00 Encounter for general adult medical examination without abnormal findings
CPT/HCPCS: 36415; 80053; 80061; 84443; 85027

== ENCOUNTER → 2022-06-02 15:18 | Outpatient (CLI) | payer MEDICARE, SELFPAY ==
[2021-05-30 13:08] VITALS: BMI 20.8
--- NOTE | 2022-06-02 15:22 | DI.RAD.S_ITS ---
PROCEDURE: XR CHEST 2V INDICATIONS: dysphagia TECHNIQUE: 2 views of the chest were acquired. COMPARISON: [facility], CR, XR CHEST 1V, 06/18/2018, 18:00. FINDINGS: Surgical changes and devices: None. Lungs and pleura: Lungs are clear. Interstitium is prominent as before. No pleural effusions or pneumothorax. Mediastinum: Mediastinal contours are normal. Heart size is normal. Bones and chest wall: No suspicious bony abnormalities. Soft tissues appear unremarkable. IMPRESSION: Mild interstitial prominence as before; otherwise no acute cardiopulmonary disease. Dictated by: Trey Carey [facility] Interpreted: Nel Orlando MD on 06/02/2022 at 16:34 Transcribed by: ADRIANNA on 06/02/2022 at 16:35 Approved by: Nel Orlando M.D. on 06/02/2022 at 16:38
[2022-06-02 16:54] LABS: Add Manual Diff / Slide Review NO; Basophils Absolute Auto 0 /uL (0-100); Basophils Percent Auto 0.5 % (0-2); Eosinophils Absolute Auto 100 /uL (0-450); Eosinophils Percent Auto 1.9 % (2-4); Hematocrit 36.3 % (36-46); Hemoglobin 12.5 g/dL (12.0-16.0); Lymphocytes Absolute Auto 1400 /uL (1100-4500); Lymphocytes Percent Auto 18.1 % (25-40); Mean Corpuscular HGB Conc 34.3 % (30-36); Mean Corpuscular Hemoglobin 31.2 PG (26-34); Mean Corpuscular Volume 90.8 fL (80-100); Monocytes Absolute Auto 500 /uL (0-900); Neutrophils Absolute Auto 5500 /uL (1500-7000); Neutrophils Percent Auto 73.5 % (50-75); Platelet Count 150 X10^3/uL (150-400); Red Cell Distribution Width 13.7 % (11.6-14.8); White Blood Cell Count 7.5 X10^3/uL (4.5-11.0)
[2022-06-02 17:19] LABS: Alanine Aminotransferase 4 IU/L (<35); Albumin 4.1 g/dL (3.5-5.0); Albumin Globulin Ratio 1.7 (1.0-2.8); Alkaline Phosphatase 110 U/L (38-126); Aspartate Aminotransferase 19 IU/L (14-36); BUN Creatinine Ratio 29.8 (6-22); Bilirubin Total 0.5 mg/dL (0.2-1.3); Blood Urea Nitrogen 31 mg/dL (7-17); Calcium 9.2 mg/dL (8.4-10.2); Carbon Dioxide 32 mmol/L (22-32); Chloride 97 mmol/L (98-107); Estimated Glomerular Filt Rate 53 mL/min (>60); Globulin 2.4 g/dL (1.7-4.1); HEMOLYSIS < 15 (0-50); Potassium 4.1 mmol/L (3.4-5.1); Sodium 134 mmol/L (137-145); Total Protein 6.5 g/dL (6.3-8.2)
[2022-06-02 17:20] LABS: Glucose 101 mg/dL (80-110)
[2022-06-02 17:32] LABS: Free T3, Triiodothyronine Free 3.07 pg/mL (2.77-5.27)
[2022-06-02 18:07] LABS: Hep C Virus Ab w/Reflex Quant NEGATIVE s/c (NEGATIVE)
== END ==
PROVIDERS: PCP Nurse Practitioner; Referring Provider Nurse Practitioner; Visit Provider Nurse Practitioner
DX: R13.10 Dysphagia, unspecified (principal); G47.09 Other insomnia; R05.9 Cough, unspecified; R53.83 Other fatigue; Z11.59 Encounter for screening for other viral diseases; F03.90 Unspecified dementia, unspecified severity, without behavioral disturbance, psychotic disturbance, mood disturbance, and anxiety; N17.9 Acute kidney failure, unspecified
CPT/HCPCS: 36415; 71046; 80053; 84439; 84443; 84481; 85025; 86803

== ENCOUNTER → 2022-06-26 13:08 | Outpatient (CLI) | payer MEDICARE, SELFPAY ==
[2021-05-30 13:08] VITALS: BMI 20.8
--- NOTE | 2022-06-26 | DI.RAD.S_ITS ---
PROCEDURE: FL BARIUM SWALLOW W SPEECH INDICATIONS: Dysphagia, unspecified COMPARISON: None. TECHNIQUE: Examination was conducted in conjunction with speech pathology per standard protocol. In the lateral projection, filming was performed of the patient swallowing. AP projection filming may also be performed with patient swallowing. COMPARISON: FINDINGS: Function: The oral preparatory phase appears normal, with proper containment. The subsequent oral propulsive phase, pharyngeal phase, and esophageal phase of swallowing also appear normal with all proffered substances. There are a few episodes of laryngotracheal penetration without aspiration. No pathologic vallecular pooling. Morphology: No cricopharyngeal bar is identified. No cervical esophageal webs. No Zenker's diverticulum. No strictures. IMPRESSION: A few episodes of laryngotracheal penetration. No evidence for aspiration. Otherwise, unremarkable modified barium swallow examination with speech pathology. Please refer to separate report by speech pathology for further details. Dictated by: Noé Parson M.D. on 06/26/2022 at 17:46 Approved by: Noé Parson M.D. on 06/26/2022 at 17:47
--- NOTE | 2022-06-26 14:30 | ST.SWALLOW ---
Visit Care Team Role Provider Type REN Cummings Attending Provider Advanced Lens Maker Primary Care Provider Referring Provider Specialty: Family Practice Address: [address] [place] [address], [facility] Email: [email or web address] Modified Barium Swallow Study SCARF GLUER Modified Barium Swallow Study Start: 06/30/22 09:08 Freq: Status: Active Protocol: Document 06/26/22 14:30 ZS (Rec: 06/30/22 09:14 ZS [id number]) Modified Barium Swallow Study Total Time Visit Start Time 13:30 Visit Stop Time 14:15 Total Visit Minutes 45 Setting Setting Outpatient Care Patient Information Identification Type Name Patient History Rosalie is an 82-year old female with a diagnosis of Parkinson' s. Daughter reported Rosalie has been coughing more over the past few months and often during meals. Rosalie has dentures that do not fit well, which makes chewing difficult . Rosalie is currently on a soft & bite-sized diet (IDDSI level 6) at home, per daughter. Subjective Observations Rosalie arrived on time accompanied by her daughter. Rosalie ambulated slowly with a walker. Patient Positioning Position View Lateral Imaging Lateral View Textures Administered Trials Presented Thin Liquid via Straw,[place] Liquid via Straw,Honey Liquid via Spoon,Regular Textures Oral Phase Source: MBSIMP (TM) (C) Bolus Specific Scoring Grid Lip Closure No Impairment (WNL) Tongue Control During Bolus Hold Mild Impairment Bolus Prep/Mastication Moderate Impairment Bolus Transport/Lingual Motion No Impairment (WNL) A/P Lingual Propulsion Delay No Oral Residue Moderate Impairment Residue Clearing Mild Impairment Nasal Regurgitation No Additional Oral Phase Observations Lingual tremors noted at rest for about 3 seconds prior to starting PO trials. Jaw tremors noted for 1-2 seconds between thin and nectar thick liquid trials. No anterior loss of bolus. Base of tongue weakness resulted in posterior loss of bolus and pooling in valleculae and pyriforms prior to swallow initiation. A/p propulsion of bolus was brisk, though a mild-moderate amount of residue remained on base of tongue and in pyriforms following initial swallow. Pt cleared about half of the residue with a prompted second swallow, but still had a mild amount of residue remaining. Mastication was characterized by mashing, mostly with tongue and roof of mouth, and bolus was minimally chewed prior to swallowing. Pharyngeal Phase Source: MBSIMP (TM) (C) Bolus Specific Scoring Grid Delayed Initiation of Pharyngeal Swallow No Soft Palate Elevation No Impairment (WNL) Tongue Base Strength/Range of Motion Mild Impairment Residue Along the Tongue Base Yes Clearance of Residue Along Tongue Base Mild Impairment Laryngeal Elevation Mild Impairment Anterior Hyoid Movement Mild Impairment Epiglottic Range of Motion No Impairment (WNL) Vallecular Residue Yes Clearance of Vallecular Residue Mild Impairment Laryngeal Vestibular Closure Mild Impairment Pharyngeal Stripping Wave Minimal Impairment Posterior Pharyngeal Wall Residue No Upper Esophageal Sphincter Opening Moderate Impairment Residue in the Pyriform Sinuses Yes Clearance of Residue in the Pyriform Mild Impairment Sinuses Additional Pharyngeal Phase Observations Pt exhibited delayed swallow, with pharyngeal swallow initiated when head of the bolus was in the pyriforms. Hyolaryngeal elevation was WNL , though reduced excursion noted. Epiglottic inversion was WNL, though laryngeal elevation and laryngeal vestibular closure were mildly impaired, resulting in aspiration of thin liquids ( PAS 3) with no cough. Aspirated liquid was not ejected and continued to move down airway over course of assessment (ended at PAS 5). Reduced risk of aspiration noted with thickened liquids, with no instances of aspiration or penetration noted with nectar thick or honey thick liquids and no aspiration of solids. Moderate residue noted following all PO trials, partially due to reduced PES opening and mildly impaired tongue base retraction. With a secondary swallow, pt reduced residue to a mild quantity. A/P view not completed as pt was not stable standing independently. A/P View Clinical Impressions Dysphagia Type Oropharyngeal Dysphagia Findings The pt presents with oropharyngeal dysphagia characterized by base of tongue weakness, impaired laryngeal vestibular closure, and high levels of residue following swallow. Pt exhibited 1 instance of aspiration with thin liquids ( PAS 3) with no cough response and liquid continued to flow through airway (PAS 5 by end of assessment). Reduced risk of aspiration noted with nectar thick liquids. Mastication characterized by mashing using roof of mouth and tongue, likely secondary to ill-fitting dentures. Recommend nectar thick liquids and continued soft & bite- sized diet (IDDSI level 6) at home. Recommend outpatient speech therapy to provide oral motor excersices to reduce risk of aspiration. Patient Appropriate for Therapy Yes Recommendations Diet Liquids Order [place] Diet Order Dysphagia Mechanical Medication Recommendation As Tolerated Aspiration Precautions Recommended Precautions Upright at 90 Degrees,Small Bites/Sips,Double Swallow Treatment Plan Therapy Recommendations Outpatient Speech Therapy,Oral Motor Exercises,Base of Tongue Exercises Compensatory Strategies Recommendations Sitting Upright (90 deg), Double Swallow,Small Bites and Sips Short Term Goals 1. The pt will perform safe swallow strategies with oral intake independently to reduce risk of aspiration. 2. The pt will perform exercises to increase strength , coordination, and ROM of swallow musculature independently to reduce risk of aspiration and increase comfort with oral intake. Fdc Goals The pt will safely tolerate least restrictive diet to meet her nutrition and hydration needs.
== END ==
PROVIDERS: PCP Nurse Practitioner; Referring Provider Nurse Practitioner; Visit Provider Nurse Practitioner
DX: R13.10 Dysphagia, unspecified (principal)
CPT/HCPCS: 74230; 92611

== ENCOUNTER 2022-08-13 08:58 | Emergency (ER) | payer MEDICARE, SELFPAY ==
[2021-05-30 13:08] VITALS: BMI 20.8
[2022-08-13 09:20] VITALS: BP 112/76; PULSE 88; RESP 18; TEMP 36; O2SAT 100; BMI 19.3
--- NOTE | 2022-08-13 09:27 | DI.RAD.S_ITS ---
PROCEDURE: XR ELBOW RT 2V INDICATIONS: direct blow TECHNIQUE: 2 views of the elbow were acquired. COMPARISON: None. FINDINGS: Bones: No fractures or dislocations. No suspicious bony lesions. Soft tissues: No elbow joint effusion. No suspicious soft tissue calcifications. IMPRESSION: No acute osseous abnormality. If symptoms persist, follow-up radiographs and/or CT may be helpful for further evaluation. Dictated by: Kaiden Yeung M.D. on 08/13/2022 at 10:25 Approved by: Kaiden Yeung M.D. on 08/13/2022 at 10:28
--- NOTE | 2022-08-13 09:28 | DI.RAD.S_ITS ---
PROCEDURE: XR SHOULDER RT MIN 2V INDICATIONS: direct blow TECHNIQUE: 2 views of the shoulder were acquired. COMPARISON: [facility], CR, XR CHEST 2V, 06/02/2022, 15:45. [facility], CR, SHOULDER MINIMUM 2 VIEW LEFT, 01/05/2014, 11:33. [facility], CR, SHOULDER MINIMUM 2VIEW RIGHT, 10/24/2010, 22:32. FINDINGS: Bones: Cortical irregularity at the humeral neck suspicious for acute mildly displaced fracture. Soft tissues: No suspicious soft tissue calcifications. IMPRESSION: Cortical irregularity and transverse lucency at the humeral neck suspicious for acute mildly displaced fracture. Dictated by: Kaiden Yeung M.D. on 08/13/2022 at 10:29 Approved by: Kaiden Yeung M.D. on 08/13/2022 at 10:31
--- NOTE | 2022-08-13 13:15 | DI.RAD.S_ITS ---
PROCEDURE: XR HUMERUS RT 2V INDICATIONS: humeral neck fx TECHNIQUE: 2 views of the humerus were acquired. COMPARISON: [facility], [place], XR SHOULDER RT MIN 2V, 08/13/2022, 9:31. [facility], [place], HUMERUS 2V LEFT, 01/05/2014, 11:39. FINDINGS: Bones: Acute mildly displaced/impacted humeral neck fracture. No acute fracture of the mid or distal humerus visualized. Soft tissues: No suspicious soft tissue calcifications. IMPRESSION: Acute mildly displaced/impacted humeral neck fracture. No acute fracture of the mid or distal humerus visualized. Dictated by: Kaiden Yeung M.D. on 08/13/2022 at 14:49 Approved by: Kaiden Yeung M.D. on 08/13/2022 at 14:52
--- NOTE | 2022-08-13 13:39 | ED_ITS ---
HPI - Fall <Bernarda [facility] - Last Filed: 08/13/22 14:11> General Chief Complaint: Fall Stated Complaint: Fall this morning- right arm pain Time Seen by Provider: 08/13/22 13:00 Source: family Mode of arrival: Wheelchair History of Present Illness HPI Narrative: This is an 82-year-old female presents to the emergency department after a reported fall last night an injury to her right upper arm. She is accompanied by her daughter whom she lives with, her daughter states that over the last 2 or 3 days she has asked questions that did not make as much sense as usual, she states that she does have a history of urinary infections and typically her 1st symptom is confusion. Patient does have a history of Parkinson's, dementia, has poor strength at baseline and uses a walker for ambulation, there is a wh eelchair in the home and patient requires quite a bit of support at baseline. Patient's daughter states that she has been otherwise well without any other changes. Patient does not remember getting up last night and falling, patient's daughter states that she heard her fall and does not know why she would have been in the kitchen in the middle of the night. Patient denies any pain anywhere other than her upper right arm. She is right-hand dominant, is holding her arm and bracing. Related Data Home Medications Medication Instructions Recorded Confirmed sumatriptan succinate 50 mg tablet 50 mg PO PRN PRN Migraine Headache 06/11/18 01/02/22 ropinirole 1 mg tablet 1 mg PO TID 01/10/19 01/02/22 Dony Stool Softener See Rx Instructions .Route .COMPLEX 07/12/19 01/02/22 carbidopa 25 mg-levodopa 100 mg See Rx Instructions PO QID 12/06/20 01/02/22 tablet melatonin 5 mg tablet 5 mg PO BEDTIME PRN 09/24/21 01/02/22 multivitamin with iron PO 09/24/21 01/02/22 trospium 20 mg tablet 20 mg PO BID 06/02/22 06/02/22 Previous Rx's Medication Instructions Recorded fluoxetine 20 mg capsule 20 mg PO QAM #90 caps 12/17/21 trazodone 50 mg tablet See Rx Instructions .Route 04/07/22 .COMPLEX #90 tabs magnesium citrate 150 ml PO BID PRN constipation 06/02/22 #296 mL minocycline 50 mg capsule 50 mg PO DAILY #90 caps 06/02/22 omeprazole 40 mg capsule,delayed See Rx Instructions .Route 06/02/22 release .COMPLEX #90 caps diclofenac sodium 1 % topical gel 2 g topical QID PRN pain #100 grams 08/13/22 hydrocodone 5 mg-acetaminophen 325 0.5 tab PO Q8H PRN pain #10 tabs 08/13/22 mg tablet polyethylene glycol 3350 17 17 g PO DAILY PRN constipation 08/13/22 gram/dose oral powder (Miralax) #119 grams Allergies Allergy/AdvReac Type Severity Reaction Status Date / Time No Known Drug Allergies Allergy Verified 06/02/22 14:02 Review of Systems <REN Giraldo - Last Filed: 08/13/22 14:11> Review of Systems Narrative: Review of systems is negative for acute abnormalities unless otherwise noted in HPI Patient History <REN Giraldo - Last Filed: 08/13/22 14:11> Medical History Abnormal CBC Colitis (Unknown) Confusion Dementia (Unknown) Depression (Unknown) Dermatitis (Unknown) Elevated BUN GERD (gastroesophageal reflux disease) (Unknown) Hyperlipemia (Unknown) Hyponatremia Low back pain (~03/2015) Migraines (Unknown) Osteopenia (Unknown) Parkinsons disease (Unknown) Restless leg syndrome (Unknown) Sarcopenia Slurred speech Surgical History H/O Spinal surgery (Unknown) H/O: hysterectomy (Unknown) History of appendectomy (Unknown) History of neck surgery (Unknown) History of tonsillectomy (Unknown) Hx of cholecystectomy (Unknown) Family History Father Parkinsons disease Mother Arthritis Social History marital status: household members: none lives independently: Yes current occupational exposures/hazards: No other: She is . She lives by herself. Smoking Status: Never smoker second hand exposure: No alcohol intake: never substance use type: does not use additional social history: Her daughter a year ago of coronary artery disease with complication of MRSA infection after bypass surgery. Smoking Status: Never smoker alcohol intake frequency: holidays/special occasions only Substance Use Type: does not use Exam <REN Giraldo - Last Filed: 08/13/22 14:11> Narrative Exam Narrative: Reviewed vitals signs and nursing notes. General: cooperative, uncomfortable, in no acute distress, well groomed, elderly, frail, holding her right arm HEENT: symmetrical facial expressions, moist mucous membranes Cardiovascular: regular rate and rhythm, no peripheral edema, warm extremities Respiratory: normal effort, able to speak in complete sentences, without wheezing, stridor, or abnormal breath sounds. No retractions or tachypnea. GI: abdomen soft, nontender to palpation, nondistended, without masses, rebound tenderness or exquisite tenderness with exam. MSK: moves all extremities, neurovascularly intact, no weakness, normal tone, patient with limited right arm movement due to pain, holding the proximal humerus and bracing her elbow she is neurovascularly intact, without sensation changes, mobility of her wrist and elbow are intact without deficit Skin: brisk capillary refill, without pallor or erythema, no open wound Neuro: normal speech and cognition, A&O x2, ambulatory, clear, slow speech without dysarthria, slurred speech, or any focal neuro deficit. Psych: mental status is grossly normal, congruent mood, normal affect, pleasant and cooperative Initial Vital Signs Initial Vital Signs: Vital Signs Temperature 96.8 F L 08/13/22 09:20 Pulse Rate 88 08/13/22 09:20 Respiratory Rate 18 08/13/22 09:20 Blood Pressure 112/76 08/13/22 09:20 Pulse Oximetry 100 08/13/22 09:20 Oxygen Delivery Method 08/13/22 09:20 <Linda Lovett DO - Last Filed: 08/13/22 20:38> Initial Vital Signs Initial Vital Signs: Vital Signs Temperature 96.8 F L 08/13/22 09:20 Pulse Rate 88 08/13/22 09:20 Respiratory Rate 18 08/13/22 09:20 Blood Pressure 112/76 08/13/22 09:20 Pulse Oximetry 100 08/13/22 09:20 Oxygen Delivery Method 08/13/22 09:20 Procedures <REN Giraldo - Last Filed: 08/13/22 14:11> Orthopedic Splinting/Casting Injury #1: Side: right Upper Extremity Injury Location: shoulder and upper arm Upper Extremity Immobilizer: sling/shoulder immobilizer Post splinting neuro exam: intact Post splinting vascular exam: intact Placed by: Nursing Course <REN Giraldo - Last Filed: 08/13/22 14:11> Orders Ordered: ED Orders 08/13/22 13:15 XR humerus RT 2V Stat 08/13/22 13:36 UA Complete [Urinalysis and Microscopic] Stat Discontinued Medications Acetaminophen (Acetaminophen 325 Mg Tablet) 650 mg PO NOW ONE Stop: 08/13/22 13:15 Last Admin: 08/13/22 13:55 Dose: 650 mg Documented By: ADK Vital Signs Vital signs: Vital Signs - 8 hr 08/13/22 09:20 Temperature 96.8 F L Pulse Rate 88 Respiratory Rate 18 Blood Pressure 112/76 Pulse Oximetry 100 Oxygen Delivery Method Room Air <Linda Lovett DO - Last Filed: 08/13/22 20:38> Orders Ordered: ED Orders 08/13/22 13:15 XR humerus RT 2V Stat 08/13/22 13:36 UA Complete [Urinalysis and Microscopic] Stat Discontinued Medications Acetaminophen (Acetaminophen 325 Mg Tablet) 650 mg PO NOW ONE Stop: 08/13/22 13:15 Last Admin: 08/13/22 13:55 Dose: 650 mg Documented By: ADK Vital Signs Vital signs: Vital Signs - 8 hr 08/13/22 09:20 Temperature 96.8 F L Pulse Rate 88 Respiratory Rate 18 Blood Pressure 112/76 Pulse Oximetry 100 Oxygen Delivery Method Room Air MDM - Fall <REN Giraldo - Last Filed: 08/13/22 14:11> Lab Data Labs: Lab Results 08/13/22 Range/Units 13:36 Urine Color Yellow Urine Appearance Clear Urine pH 7.0 (4.5-8.0) Ur Specific Drift 1.010 (1.000-1.035) Urine Protein Negative (Negative) Urine Glucose (UA) Negative (Negative) g/dL Urine Ketones Trace H (NEGATIVE) Urine Occult Blood Negative (Negative) Urine Nitrate Negative (Negative) Urine Bilirubin Negative (NEGATIVE) Urine Urobilinogen 0.2 (0.2) E.U./dL Ur Leukocyte Esterase Negative (NEGATIVE) Urine RBC None seen (0-5/HPF) Urine WBC None seen (0-5/HPF) Urine Bacteria None seen (None) Ur Culture Indicated? Cult not indicated Micro UA Comment Microscopic normal Imaging Data Extremity x-ray #1: Radiologist's Impression: PROCEDURE:? XR SHOULDER RT MIN 2V ? INDICATIONS:? direct blow ? TECHNIQUE:? 2 views of the shoulder were acquired.? ? COMPARISON:? [facility], CR, XR CHEST 2V, 06/02/2022, 15:45.? [facility], , SHOULDER MINIMUM 2 VIEW LEFT, 01/05/2014, 11:33.? [facility], , SHOULDER MINIMUM 2VIEW RIGHT, 10/24/2010, 22:32. ? FINDINGS:? ? Bones:? Cortical irregularity at the humeral neck suspicious for acute mildly displaced fracture. ? Soft tissues:? No suspicious soft tissue calcifications.? ? IMPRESSION:? Cortical irregularity and transverse lucency at the humeral neck suspicious for acute mildly displaced fracture. ? ? Dictated by: Kaiden Yeung M.D. on 08/13/2022 at 10:29 ? ? Approved by: Kaiden Yeung M.D. on 08/13/2022 at 10:31 ? Extremity x-ray #2: Radiologist's Impression: PROCEDURE:? XR ELBOW RT 2V ? INDICATIONS:? direct blow ? TECHNIQUE:? 2 views of the elbow were acquired.? ? COMPARISON:? None. ? FINDINGS:? ? Bones:? No fractures or dislocations.? No suspicious bony lesions.? ? Soft tissues:? No elbow joint effusion.? No suspicious soft tissue calcifications.? ? ? IMPRESSION:? No acute osseous abnormality.? If symptoms persist, follow-up radiographs and/or CT may be helpful for further evaluation. ? ? Dictated by: Kaiden Yeung M.D. on 08/13/2022 at 10:25 ? ? Approved by: Kaiden Yeung M.D. on 08/13/2022 at 10:28 ? MDM Narrative Medical decision making narrative: This is an 82-year-old who is brought in for evaluation of her right arm injury after she had a fall at home last night which was not witnessed but was heard by her daughter. Patient tripped and fell down in the kitchen onto her right side, denies any other injuries. Her x-ray of her right shoulder shows a right nondisplaced proximal humeral neck fracture. Patient's daughter states that she does have a history of urinary tract infections. Her UA and microscopy was negative for WBCs, leukocytes or leukocyte esterase. Consultation with Dr. Valles from Orthopedics who recommends right arm sling with follow-up in the clinic. This information was given to the family and they will call to set up follow-up. Patient has a history of Parkinson's, and dementia, patient's daughter is responsible for care and will be taking close care of her. She wishes for something stronger for pain and requested hydrocodone as she is already on tizanidine to help her sleep at night. I prescribed for her diclofenac gel, encouraged Tylenol every 6 hours, and half tabs of hydrocodone every 8 hours as needed. I gave her a prescription of MiraLax as well. They understand to f ollow-up with orthopedics and or to return to the emergency department for any altered mental status, weakness, sensation changes, or further injury. Patient is appropriate and amenable to discharge home. Vital signs are stable on repeat examination is unremarkable. Patient has been informed of results. Patient has been given strict return to ER precautions for any new or worsening symptoms. Patient understands to follow up closely with outpatient providers as instructed. Patient understands plan and agrees to discharge home. All questions and concerns answered at this time. <Linda Lovett, DO - Last Filed: 08/13/22 20:38> Lab Data Labs: Lab Results 08/13/22 Range/Units 13:36 Urine Color Yellow Urine Appearance Clear Urine pH 7.0 (4.5-8.0) Ur Specific Drift 1.010 (1.000-1.035) Urine Protein Negative (Negative) Urine Glucose (UA) Negative (Negative) g/dL Urine Ketones Trace H (NEGATIVE) Urine Occult Blood Negative (Negative) Urine Nitrate Negative (Negative) Urine Bilirubin Negative (NEGATIVE) Urine Urobilinogen 0.2 (0.2) E.U./dL Ur Leukocyte Esterase Negative (NEGATIVE) Urine RBC None seen (0-5/HPF) Urine WBC None seen (0-5/HPF) Urine Bacteria None seen (None) Ur Culture Indicated? Cult not indicated Micro UA Comment Microscopic normal Discharge Plan Departure Patient Disposition: Home Clinical Impression: Fracture of neck of humerus Qualifiers: Encounter type: initial encounter Fracture type: closed Laterality: right Qualified Code(s): S42.211A - Unspecified displaced fracture of surgical neck of right humerus, initial encounter for closed fracture Instructions: DI for Humeral Fracture Activity Restrictions/Additional Instructions: *You have been diagnosed with a humeral neck fracture. There were no other fractures visible, it is not displaced, treatment is to wear a sling at all times while out of bed and probably while in bed if propped up slightly with a pillow to support it. Please take Tylenol 650 mg every 6 hours with food and water as needed. You can use topical diclofenac gel or lidocaine patches as well. You can give aleve if it is helpful for her pain every 12 hours. Please schedule follow-up at [facility] with the number below, follow-up within 1 week would be ideal, see what is available. *What to do: *Please continue to take your regular medications as directed. [ ] New medication prescriptions sent to your pharmacy: [ ] [ ] New medication written as a paper prescription [ ] No new medications given *Please follow up with your primary care provider in 2-3 days, call for an appointment. Let them know you were seen in the Emergency Department and that we asked that you be seen for follow-up. We will electronically transmit a record of today's note if your PCP is in our system *If you do not have a primary care provider please contact [phone] to establish care with one of the [facility] primary care providers. *Return to Emergency Department if you should have any new, worsening, or concerning symptoms, such as [fever greater than 101F, chills, worsening pain, persistent vomiting or other bothersome symptoms]. Prescriptions: New hydrocodone-acetaminophen 5-325 mg tablet 0.5 tab PO Q8H PRN (Reason: pain) Qty: 10 0RF polyethylene glycol 3350 [Miralax] 17 gram/dose powder 17 g PO DAILY PRN (Reason: constipation) Qty: 119 0RF diclofenac sodium 1 % gel 2 g topical QID PRN (Reason: pain) Qty: 100 0RF Rx Instructions: upper arm No Action melatonin 5 mg tablet 5 mg PO BEDTIME PRN multivitamin with iron PO ropinirole 1 mg tablet 1 mg PO TID fluoxetine 20 mg capsule 20 mg PO QAM Qty: 90 1RF Rx Instructions: take 1 cap in am trazodone 50 mg tablet See Rx Instructions .ROUTE .COMPLEX Qty: 90 3RF Dose Instruction: take 1/2 to 1 tablet by mouth at bedtime if needed for sleep Rx Instructions: take 1/2 to 1 tablet by mouth at bedtime if needed for sleep Napoles Stool Softener See Rx Instructions .ROUTE .COMPLEX Rx Instructions: 1 tab PO QAM PRN trospium 20 mg tablet 20 mg PO BID Label Comments: take 1 tablet by mouth twice a day minocycline 50 mg capsule 50 mg PO DAILY Qty: 90 3RF omeprazole 40 mg capsule,delayed release(DR/EC) See Rx Instructions .ROUTE .COMPLEX Qty: 90 3RF Dose Instruction: take 1 capsule by mouth once daily Rx Instructions: take 1 capsule by mouth once daily magnesium citrate Solution 150 ml PO BID PRN (Reason: constipation) Qty: 296 2RF Rx Instructions: Take 1/2 bottle tonight, if no BM by morning, take second half of bottole. carbidopa-levodopa 25-100 mg tablet See Rx Instructions PO QID Rx Instructions: 1.5 tabs in a.m., 1 at noon; 1 at 4pm; 1 at bedtime sumatriptan succinate 50 MG tablet 50 mg PO PRN PRN (Reason: Migraine Headache) Referrals: [facility] [Provider Group] - 7-10 days Farrah Cleaning ARNP [Primary Care Provider] - Visit Report Forms: Patient Portal/API <Linda Lovett DO - Last Filed: 08/13/22 20:38> Cosign ED Attending [place] Attestation: I was immediately available in the department for consultation. Documentation has been reviewed.
[2022-08-13 13:40] LABS: Appearance Urine UA CLEAR; Bilirubin Urine UA NEGATIVE (NEGATIVE); Color Urine UA YELLOW; Glucose Urine UA NEGATIVE (Negative); Ketones Urine UA TRACE (NEGATIVE); Leukocyte Esterase Urine UA NEGATIVE (NEGATIVE); Nitrite Urine UA NEGATIVE (Negative); Occult Blood Urine UA NEGATIVE (Negative); Protein Urine UA NEGATIVE (Negative); Urobilinogen Urine UA 0.2 E.U./dL (0.2)
[2022-08-13 13:44] LABS: Bacteria Urine None Seen; Culture Indicated Urine Cult Not Indicated; RBC Urine None Seen (0-5/HPF); Urine Comments Microscopic Normal; WBC Urine None Seen (0-5/HPF)
[2022-08-13] MEDS: ACETAMINOPHEN 325 MG TABLET 650 MG PO (13:55)
== END 2022-08-13 14:21 | disposition home or self-care (01) ==
PROVIDERS: Emergency Provider Nurse Practitioner Critical Care Medicine; PCP Nurse Practitioner
DX: S42.211A Unspecified displaced fracture of surgical neck of right humerus, initial encounter for closed fracture (principal); W18.30XA Fall on same level, unspecified, initial encounter; G20 Parkinson's disease; F02.80 Dementia in other diseases classified elsewhere, unspecified severity, without behavioral disturbance, psychotic disturbance, mood disturbance, and anxiety
CPT/HCPCS: 73030; 73060; 73080; 81001; 99283

== ENCOUNTER → 2023-01-05 15:20 | Outpatient (CLI) | payer MEDICARE, SELFPAY ==
[2021-05-30 13:08] VITALS: BMI 20.8
[2023-01-05 16:55] LABS: Add Manual Diff / Slide Review NO; Basophils Absolute Auto 0 /uL (0-100); Basophils Percent Auto 0.5 % (0-2); Eosinophils Absolute Auto 100 /uL (0-450); Eosinophils Percent Auto 0.9 % (2-4); Hematocrit 38.9 % (36-46); Hemoglobin 13.3 g/dL (12.0-16.0); Lymphocytes Absolute Auto 1400 /uL (1100-4500); Lymphocytes Percent Auto 20.6 % (25-40); Mean Corpuscular HGB Conc 34.1 % (30-36); Mean Corpuscular Hemoglobin 31.8 PG (26-34); Mean Corpuscular Volume 93.3 fL (80-100); Monocytes Absolute Auto 500 /uL (0-900); Monocytes Percent Auto 6.9 % (3-14); Neutrophils Absolute Auto 5000 /uL (1500-7000); Neutrophils Percent Auto 71.1 % (50-75); Platelet Count 159 X10^3/uL (150-400); Red Blood Cell Count 4.17 X10^6/uL (4.0-5.2); Red Cell Distribution Width 12.6 % (11.6-14.8)
[2023-01-05 17:02] LABS: Alanine Aminotransferase 8 IU/L (<35); Albumin 4.5 g/dL (3.5-5.0); Albumin Globulin Ratio 1.5 (1.0-2.8); Alkaline Phosphatase 118 U/L (38-126); Aspartate Aminotransferase 24 IU/L (14-36); BUN Creatinine Ratio 24.3 (6-22); Bilirubin Total 0.7 mg/dL (0.2-1.3); Blood Urea Nitrogen 35 mg/dL (7-17); Calcium 10.1 mg/dL (8.4-10.2); Carbon Dioxide 31 mmol/L (22-32); Chloride 99 mmol/L (98-107); Estimated Glomerular Filt Rate 36 mL/min (>60); Glucose 97 mg/dL (80-110); HEMOLYSIS < 15 (0-50); Potassium 4.9 mmol/L (3.4-5.1); Sodium 137 mmol/L (137-145); Total Protein 7.5 g/dL (6.3-8.2)
[2023-01-05 17:27] LABS: Free T3, Triiodothyronine Free 3.59 pg/mL (2.77-5.27); Free T4, Direct Thyroxine 1.29 ng/dL (0.78-2.19)
[2023-01-05 17:41] LABS: Thyroid Stimulating Hormone 1.23 uIU/mL (0.47-4.68)
== END ==
PROVIDERS: PCP Nurse Practitioner; Referring Provider Nurse Practitioner; Visit Provider Nurse Practitioner
DX: D64.9 Anemia, unspecified (principal); F33.1 Major depressive disorder, recurrent, moderate; R53.1 Weakness; R64 Cachexia
CPT/HCPCS: 36415; 80053; 84439; 84443; 84481; 85025

== ENCOUNTER → 2023-05-11 10:18 | Outpatient (CLI) | payer MEDICARE, SELFPAY ==
[2021-05-30 13:08] VITALS: BMI 20.8
[2023-05-11 11:02] LABS: Alanine Aminotransferase 11 IU/L (<35); Albumin 4.1 g/dL (3.5-5.0); Albumin Globulin Ratio 1.4 (1.0-2.8); Alkaline Phosphatase 110 U/L (38-126); Aspartate Aminotransferase 29 IU/L (14-36); BUN Creatinine Ratio 25.2 (6-22); Bilirubin Total 0.6 mg/dL (0.2-1.3); Blood Urea Nitrogen 31 mg/dL (7-17); Calcium 9.4 mg/dL (8.4-10.2); Carbon Dioxide 30 mmol/L (22-32); Chloride 98 mmol/L (98-107); Estimated Glomerular Filt Rate 43 mL/min (>60); Glucose 99 mg/dL (80-110); HEMOLYSIS < 15 (0-50); Potassium 4.1 mmol/L (3.4-5.1); Sodium 134 mmol/L (137-145); Total Protein 7.1 g/dL (6.3-8.2)
== END ==
PROVIDERS: PCP Nurse Practitioner; Referring Provider Nurse Practitioner; Visit Provider Nurse Practitioner
DX: N18.30 Chronic kidney disease, stage 3 unspecified (principal)
CPT/HCPCS: 36415; 80053

== ENCOUNTER → 2024-02-24 14:22 | Outpatient (CLI) | payer MEDICARE, SELFPAY ==
[2021-05-30 13:08] VITALS: BMI 20.8
[2024-02-24 15:28] LABS: Add Manual Diff / Slide Review NO; Basophils Absolute Auto 0 /uL (0-100); Basophils Percent Auto 0.4 % (0-2); Eosinophils Absolute Auto 100 /uL (0-450); Eosinophils Percent Auto 1.1 % (2-4); Hematocrit 40.2 % (36-46); Hemoglobin 13.7 g/dL (12.0-16.0); Lymphocytes Absolute Auto 1700 /uL (1100-4500); Lymphocytes Percent Auto 24.6 % (25-40); Mean Corpuscular HGB Conc 34.2 % (30-36); Mean Corpuscular Hemoglobin 31.4 PG (26-34); Monocytes Absolute Auto 500 /uL (0-900); Monocytes Percent Auto 7.2 % (3-14); Neutrophils Absolute Auto 4700 /uL (1500-7000); Neutrophils Percent Auto 66.7 % (50-75); Platelet Count 161 X10^3/uL (150-400); Red Blood Cell Count 4.37 X10^6/uL (4.0-5.2); Red Cell Distribution Width 13.5 % (11.6-14.8)
[2024-02-24 15:47] LABS: Alanine Aminotransferase 5 IU/L (<35); Albumin 4.6 g/dL (3.5-5.0); Alkaline Phosphatase 106 U/L (38-126); Aspartate Aminotransferase 22 IU/L (14-36); BUN Creatinine Ratio 32.8 (6-22); Bilirubin Total 0.6 mg/dL (0.2-1.3); Blood Urea Nitrogen 41 mg/dL (7-17); Calcium 10.2 mg/dL (8.4-10.2); Carbon Dioxide 30 mmol/L (22-32); Chloride 101 mmol/L (98-107); Estimated Glomerular Filt Rate 42 mL/min (>60); Globulin 2.3 g/dL (1.7-4.1); Glucose 113 mg/dL (80-110); HEMOLYSIS < 15 (0-50); Potassium 4.6 mmol/L (3.4-5.1); Sodium 135 mmol/L (137-145); Total Protein 6.9 g/dL (6.3-8.2)
[2024-02-24 16:05] LABS: Free T3, Triiodothyronine Free 3.97 pg/mL (2.77-5.27)
[2024-02-24 16:19] LABS: Thyroid Stimulating Hormone 1.59 uIU/mL (0.47-4.68)
[2024-02-24 16:38] LABS: Vitamin B12 446 pg/mL (239-931)
== END ==
PROVIDERS: PCP Nurse Practitioner; Referring Provider Nurse Practitioner; Visit Provider Nurse Practitioner
DX: M62.84 Sarcopenia (principal); R63.4 Abnormal weight loss; N18.30 Chronic kidney disease, stage 3 unspecified; R41.3 Other amnesia; R53.83 Other fatigue; Z86.2 Personal history of diseases of the blood and blood-forming organs and certain disorders involving the immune mechanism
CPT/HCPCS: 36415; 80053; 82607; 84439; 84443; 84481; 85025